=== PATIENT | female | born 1980 | race Two or more races ===

== ENCOUNTER 2018-09-19 13:31 | Emergency (ER) | payer MEDICAID, OTHER ==
[~2018-09-19] VITALS: Ht 144.8 cm; Wt 41.8 kg
[2018-09-19 16:55] VITALS: BP 159/90
== END 2018-09-19 17:16 | disposition home or self-care (01) ==
LOC: ER 13:31
DX: J20.9 Acute bronchitis, unspecified (principal)
CPT/HCPCS: 71046

== ENCOUNTER 2018-11-19 07:09 | Emergency (ER) | payer MEDICAID ==
[~2018-11-19] VITALS: Ht 144.8 cm; Wt 46.3 kg
[2018-11-19 07:45] LABS: Urine Bacteria FEW /hpf (None Seen); Urine Blood Negative /uL (Negative); Urine Specific Gravity 1.018 (1.001-1.035); Urine WBC 1 /hpf (0 - 5)
[2018-11-19 07:46] LABS: Basophils # (auto) 0 uL; Basophils % (auto) 0.4 % (0.0-2.0); Eosinophils # (auto) 0.1 uL; Eosinophils % (auto) 1.3 % (0.0-7.0); Hematocrit 32.8 % (36.0-46.0); Lymphocytes # (auto) 2.4 uL
[2018-11-19 07:47] LABS: Hemoglobin 10.4 g/dL (12.2-16.2); Mean Corpuscular Hemoglobin 26.2 pg (28.0-32.0); Mean Corpuscular Hgb Conc. 31.6 g/dL (32.0-36.0); Monocytes # (auto) 0.5 uL; Monocytes % (auto) 7.7 % (0.0-12.0); Neutrophils # (auto) 3.8 uL; Neutrophils % (auto) 55.6 % (37.0-80.0); Platelet Count (auto) 381 10^3/uL (140-450); Red Blood Cells 3.95 10^6/uL (4.0-5.20); Red Cell Distribution Width 17.2 % (11.8-14.3); White Blood Cell 6.9 10^3/uL (4.4-10.8)
[2018-11-19 08:09] LABS: Albumin 3.2 g/dL (3.4-5.0); BUN/Creatinine Ratio 16.7; Calcium 8.5 mg/dL (8.5-10.1); Potassium 3.6 mmol/L (3.5-5.1)
[2018-11-19 08:12] LABS: Bilirubin, Total 0.1 mg/dL (0.2-1.0); Total Protein 6.9 g/dL (6.4-8.2)
[2018-11-19 08:46] VITALS: BP 129/95
[2018-11-19] MEDS ORDERED: SODIUM CHLORIDE 0.9% 1,000 ML IV ONE ×2 (09:40→09:43)
[2018-11-19] MEDS ORDERED: SODIUM CHLORIDE 0.9% 500 ML IVB ONE ×2 (09:40→09:43)
[2018-11-19] MEDS ORDERED: PROMETHAZINE HCL 25 MG/ML 1ML IV PRN ×2 (09:45)
[2018-11-19] MEDS ORDERED: KETOROLAC TROMETH 30 MG/ML 1ML VIAL IV ONE ×2 (09:45)
== END 2018-11-19 11:49 | disposition home or self-care (01) ==
LOC: ER 07:09
DX: N20.1 Calculus of ureter (principal); E11.9 Type 2 diabetes mellitus without complications; E46 Unspecified protein-calorie malnutrition; Z68.22 Body mass index [BMI] 22.0-22.9, adult; Z90.49 Acquired absence of other specified parts of digestive tract
CPT/HCPCS: 36415; 74176; 80053; 81001; 81025; 83690; 83735; 85025; 96374; 99284; J1885; J7030; J7040

== ENCOUNTER 2019-06-24 06:38 | Emergency (ER) | payer MEDICAID ==
[~2019-06-24] VITALS: Ht 144.8 cm; Wt 51.7 kg
[2019-06-24 07:35] LABS: Urine Bacteria NONE SEEN /hpf (None Seen); Urine Blood Negative /uL (Negative); Urine Mucus FEW (None Seen); Urine Specific Gravity 1.017 (1.001-1.035); Urine WBC 1 /hpf (0 - 5)
[2019-06-24 08:05] LABS: Basophils # (auto) 0 uL; Basophils % (auto) 0.4 % (0.0-2.0); Eosinophils # (auto) 0.2 uL; Eosinophils % (auto) 2.1 % (0.0-7.0); Hematocrit 33.4 % (36.0-46.0); Hemoglobin 10.8 g/dL (12.2-16.2); Lymphocytes # (auto) 1.7 uL; Lymphocytes % (auto) 23.3 % (10.0-50.0); Mean Corpuscular Hemoglobin 27.3 pg (28.0-32.0); Mean Corpuscular Hgb Conc. 32.3 g/dL (32.0-36.0); Mean Corpuscular Volume 84.5 fL (80.0-100.0); Monocytes # (auto) 0.5 uL; Monocytes % (auto) 6.4 % (0.0-12.0); Neutrophils % (auto) 67.8 % (37.0-80.0); Platelet Count (auto) 421 10^3/uL (140-450); Red Blood Cells 3.95 10^6/uL (4.0-5.20); Red Cell Distribution Width 16.9 % (11.8-14.3); White Blood Cell 7.3 10^3/uL (4.4-10.8)
[2019-06-24] MEDS ORDERED: SODIUM CHLORIDE 0.9% 500 ML IVB ONE (08:07)
[2019-06-24] MEDS ORDERED: SODIUM CHLORIDE 0.9% 1,000 ML IV ONE (08:07)
[2019-06-24 08:13] LABS: Potassium 4.2 mmol/L (3.5-5.1)
[2019-06-24] MEDS ORDERED: KETOROLAC TROMETH 30 MG/ML 1ML VIAL IV ONE (08:15)
[2019-06-24] MEDS ORDERED: PROMETHAZINE HCL 25 MG/ML 1ML IV PRN (08:15)
[2019-06-24 08:17] LABS: Albumin 3.2 g/dL (3.4-5.0); BUN/Creatinine Ratio 21.3; Calcium 8.5 mg/dL (8.5-10.1)
[2019-06-24 08:20] LABS: Bilirubin, Total 0.3 mg/dL (0.2-1.0); Total Protein 6.9 g/dL (6.4-8.2)
[2019-06-24 12:00] VITALS: BP 139/67
== END 2019-06-24 12:31 | disposition home or self-care (01) ==
LOC: ER 06:38
DX: K59.01 Slow transit constipation (principal); K81.9 Cholecystitis, unspecified; E44.1 Mild protein-calorie malnutrition; E11.9 Type 2 diabetes mellitus without complications; Z68.24 Body mass index [BMI] 24.0-24.9, adult; Z87.442 Personal history of urinary calculi; Z32.02 Encounter for pregnancy test, result negative; Z90.49 Acquired absence of other specified parts of digestive tract; Z91.041 Radiographic dye allergy status
CPT/HCPCS: 36415; 71046; 74176; 80053; 81001; 81025; 82150; 83690; 83735; 84702; 85025; 93005; 96361; 96374; 96375; 99284; J1885; J2550; J7030

== ENCOUNTER 2019-06-29 00:28 | Emergency (ER) | payer MEDICAID ==
[~2019-06-29] VITALS: Ht 144.8 cm; Wt 51.7 kg
[2019-06-29 01:58] LABS: Basophils # (auto) 0 uL; Basophils % (auto) 0.2 % (0.0-2.0); Eosinophils # (auto) 0.1 uL
[2019-06-29 01:59] LABS: Eosinophils % (auto) 0.9 % (0.0-7.0); Hemoglobin 11.1 g/dL (12.2-16.2); Lymphocytes # (auto) 1.9 uL; Lymphocytes % (auto) 13.4 % (10.0-50.0); Mean Corpuscular Hemoglobin 26.7 pg (28.0-32.0); Mean Corpuscular Hgb Conc. 31.7 g/dL (32.0-36.0); Monocytes # (auto) 1.4 uL; Monocytes % (auto) 10.1 % (0.0-12.0); Neutrophils # (auto) 10.8 uL; Neutrophils % (auto) 75.4 % (37.0-80.0); Platelet Count (auto) 451 10^3/uL (140-450); Red Blood Cells 4.17 10^6/uL (4.0-5.20); Red Cell Distribution Width 17.1 % (11.8-14.3); White Blood Cell 14.3 10^3/uL (4.4-10.8)
[2019-06-29 02:12] LABS: Urine Bacteria FEW /hpf (None Seen); Urine Blood Negative /uL (Negative); Urine WBC 1 /hpf (0 - 5)
[2019-06-29 02:14] LABS: Albumin 3.5 g/dL (3.4-5.0); Anion Gap 10 (5-15); Blood Urea Nitrogen 21 mg/dL (7-18); Calcium 9.3 mg/dL (8.5-10.1); Carbon Dioxide 20 mmol/L (21-32); Chloride 110 mmol/L (98-107); Glucose 128 mg/dL (74-106); Potassium 3.9 mmol/L (3.5-5.1); Sodium 140 mmol/L (136-145)
[2019-06-29 02:17] LABS: BUN/Creatinine Ratio 25.9; GFR African American 102 mL/min; GFR Non-African American 85 mL/min
[2019-06-29 02:22] LABS: Alanine Aminotransferase 26 U/L (13-56); Alkaline Phosphatase 77 U/L (45-117); Aspartate Aminotransferase 21 U/L (15-37); Bilirubin, Total 0.2 mg/dL (0.2-1.0); Total Protein 7.9 g/dL (6.4-8.2)
[2019-06-29] MEDS ORDERED: cefTRIAXone W LIDOCAINE 1 GM IM IM ONE (06:00)
[2019-06-29] MEDS ORDERED: cefTRIAXone SOD 1,000 MG VL ONE (06:12)
[2019-06-29] MEDS ORDERED: LIDOCAINE 2% (LOCAL ANESTH.) PF 5ml SDV ONE (06:12)
[2019-06-29 06:16] VITALS: BP 141/99
== END 2019-06-29 06:27 | disposition home or self-care (01) ==
LOC: ER 00:30
DX: R07.89 Other chest pain (principal); J40 Bronchitis, not specified as acute or chronic; E11.9 Type 2 diabetes mellitus without complications; Z90.49 Acquired absence of other specified parts of digestive tract; Z90.89 Acquired absence of other organs; Z91.041 Radiographic dye allergy status
CPT/HCPCS: 36415; 71045; 80053; 81001; 84484; 85025; 93005; 96372; 99284; J0696; J2001

== ENCOUNTER 2020-12-15 06:02 | Emergency (ER) | payer MEDICAID ==
[~2020-12-15] VITALS: Ht 144.8 cm; Wt 50.8 kg
[2020-12-15 06:04] VITALS: BP 159/95
== END 2020-12-15 07:08 | disposition left against medical advice (07) ==
LOC: ER 06:02
DX: J02.9 Acute pharyngitis, unspecified (principal); Z53.21 Procedure and treatment not carried out due to patient leaving prior to being seen by health care provider

== ENCOUNTER 2021-06-16 00:51 | Emergency (ER) | payer MEDICAID ==
[~2021-06-16] VITALS: Ht 144.8 cm; Wt 53.1 kg
[2021-06-16 03:14] VITALS: BP 148/87
== END 2021-06-16 02:56 | disposition home or self-care (01) ==
LOC: ER 00:51
DX: U07.1 COVID-19 (principal); R53.83 Other fatigue; J45.909 Unspecified asthma, uncomplicated; Z90.49 Acquired absence of other specified parts of digestive tract
CPT/HCPCS: 36415; 71045; 87426; 99284; J7030

== ENCOUNTER 2021-07-24 19:58 | Emergency (ER) | payer MEDICAID ==
[~2021-07-24] VITALS: Ht 144.8 cm; Wt 54.4 kg
[2021-07-24] MEDS ORDERED: KETOROLAC TROMETH 60MG/2ML VIAL IM ONE (20:15)
[2021-07-24] MEDS ORDERED: methylPREDNISolone SOD SUCC 125 MG/2 ML VL IM ONE (20:15)
[2021-07-24 20:49] VITALS: BP 121/79
[2021-07-25] MEDS ORDERED: HYDROcodone-ACET 10/325MG TAB PO ONE (01:45)
[2021-07-25] MEDS ORDERED: cefTRIAXone SOD 1,000 MG VL IM ONE (05:15)
[2021-07-25] MEDS ORDERED: AZITTAB PO (05:17)
[2021-07-25] MEDS ORDERED: PRED20TA2 PO (05:17)
== END 2021-07-25 05:43 | disposition home or self-care (01) ==
LOC: ER 19:58
DX: J03.90 Acute tonsillitis, unspecified (principal); J45.909 Unspecified asthma, uncomplicated; Z90.49 Acquired absence of other specified parts of digestive tract; Z79.2 Long term (current) use of antibiotics; Z79.899 Other long term (current) drug therapy; Z88.8 Allergy status to other drugs, medicaments and biological substances; Z20.822 Contact with and (suspected) exposure to COVID-19
CPT/HCPCS: 36415; 86308; 87070; 87426; 87880; 96372; 99284; J1885; J2930; J0696

== ENCOUNTER 2021-10-27 04:31 | Emergency (ER) | payer MEDICAID ==
[~2021-10-27] VITALS: Ht 144.8 cm; Wt 52.2 kg
[~2021-10-27 04:31] MED LIST: AZITTAB PO; HYDR-4902 PO; NITR-87 PO; PRED20TA2 PO
[2021-10-27 06:21] LABS: Urine Bacteria NONE SEEN /hpf (None Seen); Urine Blood Negative /uL (Negative); Urine Mucus FEW (None Seen); Urine Specific Gravity 1.022 (1.001-1.035); Urine WBC 6 /hpf (0 - 5)
[2021-10-27] MEDS ORDERED: KETOROLAC TROMETH 30 MG/ML 1ML VIAL IV ONE ×2 (08:15→09:45)
[2021-10-27] MEDS ORDERED: IOHEXOL 300 MG/ML 100ML BOTTLE IJ ONE (08:30)
[2021-10-27 08:31] LABS: Basophils # (auto) 0 10 ^3/uL (0-0.2); Basophils % (auto) 0.4 % (0.0-2.0); Eosinophils # (auto) 0.3 10 ^3/uL (0-0.8); Eosinophils % (auto) 4.3 % (0.0-7.0); Hematocrit 33.7 % (36.0-46.0); Hemoglobin 11.6 g/dL (12.2-16.2); Mean Corpuscular Hemoglobin 32.4 pg (28.0-32.0); Mean Corpuscular Hgb Conc. 34.4 g/dL (32.0-36.0); Mean Corpuscular Volume 94.3 fL (80.0-100.0); Monocytes # (auto) 0.5 10 ^3/uL (0-1.3); Monocytes % (auto) 7.7 % (0.0-12.0); Neutrophils # (auto) 3.5 10 ^3/uL (1.6-8.6); Neutrophils % (auto) 55.6 % (37.0-80.0); Nucleated Red Blood Cells % 0.1 %; Red Blood Cells 3.57 10^6/uL (4.0-5.20); Red Cell Distribution Width 13.5 % (11.8-14.3); White Blood Cell 6.3 10^3/uL (4.4-10.8)
[2021-10-27] MEDS ORDERED: KETOROLAC TROMETH 60MG/2ML VIAL IM ONE (08:45)
[2021-10-27 09:18] LABS: Albumin 3.3 g/dL (3.4-5.0); BUN/Creatinine Ratio 14.3; Blood Urea Nitrogen 13 mg/dL (7-18); Calcium 8.1 mg/dL (8.5-10.1); Carbon Dioxide 26 mmol/L (21-32); GFR African American 88 mL/min; GFR Non-African American 73 mL/min; Glucose 104 mg/dL (74-106); Lipase 199 U/L (73-393)
[2021-10-27 09:21] LABS: Alkaline Phosphatase 70 U/L (45-117); Anion Gap 6 (5-15); Bilirubin, Total < 0.1 mg/dL (0.2-1.0); Chloride 111 mmol/L (98-107); Potassium 3.9 mmol/L (3.5-5.1); Sodium 143 mmol/L (136-145); Total Protein 6.6 g/dL (6.4-8.2)
[2021-10-27 09:30] LABS: Alanine Aminotransferase 16 U/L (13-56); Aspartate Aminotransferase 14 U/L (15-37)
[2021-10-27 11:00] VITALS: BP 136/88
== END 2021-10-27 11:48 | disposition home or self-care (01) ==
LOC: ER 04:31
DX: R10.2 Pelvic and perineal pain (principal); J45.909 Unspecified asthma, uncomplicated; Z90.49 Acquired absence of other specified parts of digestive tract; Z79.2 Long term (current) use of antibiotics; Z79.899 Other long term (current) drug therapy; Z88.8 Allergy status to other drugs, medicaments and biological substances
CPT/HCPCS: 36415; 74176; 76830; 76856; 80053; 81001; 81025; 83690; 84702; 85025; 87491; 87591; 96374; 99284; J1885

== ENCOUNTER 2022-01-23 04:06 | Emergency (ER) | payer MEDICAID ==
[~2022-01-23] VITALS: Ht 144.8 cm; Wt 111.0 kg
[2022-01-23 05:21] LABS: Urine Bacteria MANY /hpf (None Seen); Urine Blood Negative /uL (Negative); Urine Mucus FEW (None Seen); Urine Specific Gravity 1.022 (1.001-1.035); Urine WBC 5 /hpf (0 - 5)
[2022-01-23] MEDS ORDERED: KETOROLAC TROMETH 30 MG/ML 1ML VIAL IV ONE (07:30)
[2022-01-23] MEDS ORDERED: cefTRIAXone 1GM/50ML D5W 50 ML IV ONE (07:30)
[2022-01-23 08:54] LABS: Basophils # (auto) 0 10 ^3/uL (0-0.2); Basophils % (auto) 0.4 % (0.0-2.0); Eosinophils # (auto) 0.2 10 ^3/uL (0-0.8); Hematocrit 32.4 % (36.0-46.0); Hemoglobin 10.8 g/dL (12.2-16.2); Lymphocytes # (auto) 1.8 10 ^3/uL (0.4-5.4); Lymphocytes % (auto) 20.1 % (10.0-50.0); Mean Corpuscular Hemoglobin 32.9 pg (28.0-32.0); Mean Corpuscular Hgb Conc. 33.5 g/dL (32.0-36.0); Mean Corpuscular Volume 98.5 fL (80.0-100.0); Monocytes # (auto) 0.7 10 ^3/uL (0-1.3); Monocytes % (auto) 8.1 % (0.0-12.0); Neutrophils # (auto) 6.2 10 ^3/uL (1.6-8.6); Neutrophils % (auto) 69.4 % (37.0-80.0); Nucleated Red Blood Cells % 0.1 %; Red Blood Cells 3.29 10^6/uL (4.0-5.20); Red Cell Distribution Width 13.1 % (11.8-14.3)
[2022-01-23 08:59] LABS: Albumin 3.4 g/dL (3.4-5.0); Calcium 8.4 mg/dL (8.5-10.1); Potassium 4.1 mmol/L (3.5-5.1)
[2022-01-23 09:03] LABS: BUN/Creatinine Ratio 23.9; Bilirubin, Total 0.2 mg/dL (0.2-1.0); Total Protein 6.7 g/dL (6.4-8.2)
[2022-01-23] MEDS ORDERED: CIPR-173 PO (11:01)
[2022-01-23] MEDS ORDERED: NAP500T PO (11:01)
[2022-01-23] MEDS ORDERED: METO-281 PO (11:01)
[2022-01-23 11:24] VITALS: BP 124/66
== END 2022-01-23 11:28 | disposition home or self-care (01) ==
LOC: ER 04:06
DX: N39.0 Urinary tract infection, site not specified (principal); M77.8 Other enthesopathies, not elsewhere classified
CPT/HCPCS: 36415; 76705; 80053; 81001; 83690; 84702; 85025; 96365; 96366; 96375; 99284; J0696; J1885

== ENCOUNTER 2022-02-04 11:36 | Emergency (ER) | payer MEDICAID ==
[~2022-02-04] VITALS: Ht 144.8 cm; Wt 50.0 kg
[~2022-02-04 11:36] MED LIST changes: +ACE3T PO; +CIPR-173 PO; +METO-281 PO; +NAP500T PO
[2022-02-04] MEDS ORDERED: KETOROLAC TROMETH 60MG/2ML VIAL IM ONE (13:45)
[2022-02-04 14:08] VITALS: BP 113/79
[2022-02-04 14:39] LABS: Urine Bacteria NONE SEEN /hpf (None Seen); Urine Blood 1+ /uL (Negative); Urine Specific Gravity 1.012 (1.001-1.035); Urine WBC <1 /hpf (0 - 5)
[2022-02-04] MEDS ORDERED: HYDR50CA PO ×2 (15:07→15:08)
== END 2022-02-04 15:14 | disposition home or self-care (01) ==
LOC: ER 11:36
DX: T78.40XA Allergy, unspecified, initial encounter (principal); N64.4 Mastodynia; J45.909 Unspecified asthma, uncomplicated; Z86.73 Personal history of transient ischemic attack (TIA), and cerebral infarction without residual deficits; Z90.49 Acquired absence of other specified parts of digestive tract; Z79.2 Long term (current) use of antibiotics; Z79.899 Other long term (current) drug therapy; Z88.8 Allergy status to other drugs, medicaments and biological substances; Y92.89 Other specified places as the place of occurrence of the external cause
CPT/HCPCS: 76642; 81001; 81025; 93005; 96372; 99285; J1885

== ENCOUNTER 2022-02-23 10:58 | Emergency (ER) | payer MEDICAID ==
[~2022-02-23] VITALS: Ht 132.1 cm; Wt 55.9 kg
[~2022-02-23 10:58] MED LIST changes: +HYDR50CA PO
[2022-02-23 11:57] LABS: Basophils # (auto) 0 10 ^3/uL (0-0.2); Basophils % (auto) 0.5 % (0.0-2.0); Eosinophils # (auto) 0.2 10 ^3/uL (0-0.8); Eosinophils % (auto) 2.6 % (0.0-7.0); Hematocrit 35.1 % (36.0-46.0); Hemoglobin 11.4 g/dL (12.2-16.2); Lymphocytes # (auto) 1.8 10 ^3/uL (0.4-5.4); Lymphocytes % (auto) 23.5 % (10.0-50.0); Mean Corpuscular Hemoglobin 31.2 pg (28.0-32.0); Mean Corpuscular Hgb Conc. 32.6 g/dL (32.0-36.0); Mean Corpuscular Volume 95.8 fL (80.0-100.0); Monocytes # (auto) 0.6 10 ^3/uL (0-1.3); Monocytes % (auto) 8.4 % (0.0-12.0); Red Blood Cells 3.67 10^6/uL (4.0-5.20); Red Cell Distribution Width 11.9 % (11.8-14.3); White Blood Cell 7.7 10^3/uL (4.4-10.8)
[2022-02-23 12:14] LABS: Potassium 4.2 mmol/L (3.5-5.1)
[2022-02-23 12:21] LABS: Albumin 3.2 g/dL (3.4-5.0); BUN/Creatinine Ratio 32.8; Bilirubin, Total 0.3 mg/dL (0.2-1.0); Calcium 8.8 mg/dL (8.5-10.1)
[2022-02-23 12:37] LABS: Urine Bacteria FEW /hpf (None Seen); Urine Blood 1+ /uL (Negative); Urine Specific Gravity 1.021 (1.001-1.035); Urine WBC 6 /hpf (0 - 5)
[2022-02-23] MEDS ORDERED: CEPH-322 PO (13:33)
[2022-02-23 13:49] VITALS: BP 121/76
== END 2022-02-23 14:01 | disposition home or self-care (01) ==
LOC: ER 10:58
DX: N12 Tubulo-interstitial nephritis, not specified as acute or chronic (principal); J45.909 Unspecified asthma, uncomplicated; Z86.73 Personal history of transient ischemic attack (TIA), and cerebral infarction without residual deficits; Z90.49 Acquired absence of other specified parts of digestive tract; Z79.2 Long term (current) use of antibiotics; Z79.899 Other long term (current) drug therapy; Z88.8 Allergy status to other drugs, medicaments and biological substances
CPT/HCPCS: 36415; 80053; 81001; 81025; 85025

== ENCOUNTER 2022-03-22 05:40 | Inpatient (IN) | payer MEDICAID ==
[~2022-03-22] VITALS: Ht 165.1 cm; Wt 61.0 kg
[~2022-03-22 05:40] MED LIST changes: +CEPH-322 PO
[2022-03-22] MEDS ORDERED: ONDANSETRON HCL 4 MG/2 ML VIAL IV ONE ×2 (06:00→13:30)
[2022-03-22] MEDS ORDERED: NALOXONE HCL 0.4 MG/ML VIAL IV ONE (06:00)
[2022-03-22 06:35] LABS: Basophils # (auto) 0 10 ^3/uL (0-0.2); Basophils % (auto) 0.3 % (0.0-2.0); Eosinophils # (auto) 0.1 10 ^3/uL (0-0.8); Eosinophils % (auto) 0.6 % (0.0-7.0); Hematocrit 34.4 % (36.0-46.0); Hemoglobin 11.3 g/dL (12.2-16.2); Lymphocytes # (auto) 1.3 10 ^3/uL (0.4-5.4); Lymphocytes % (auto) 9.4 % (10.0-50.0); Mean Corpuscular Hemoglobin 30.7 pg (28.0-32.0); Mean Corpuscular Hgb Conc. 32.7 g/dL (32.0-36.0); Mean Corpuscular Volume 93.7 fL (80.0-100.0); Monocytes # (auto) 0.9 10 ^3/uL (0-1.3); Monocytes % (auto) 6.3 % (0.0-12.0); Neutrophils % (auto) 83.4 % (37.0-80.0); Red Blood Cells 3.67 10^6/uL (4.0-5.20); Red Cell Distribution Width 12.2 % (11.8-14.3); White Blood Cell 14.4 10^3/uL (4.4-10.8)
[2022-03-22 06:54] LABS: Albumin 3.4 g/dL (3.4-5.0); Anion Gap 9 (5-15); Blood Alcohol < 3.0 mg/dL (0-5); Blood Urea Nitrogen 19 mg/dL (7-18); Calcium 7.7 mg/dL (8.5-10.1); Carbon Dioxide 25 mmol/L (21-32); Chloride 102 mmol/L (98-107); Glucose 196 mg/dL (74-106); Magnesium 1.8 mg/dL (1.6-2.6); Sodium 136 mmol/L (136-145)
[2022-03-22 06:57] LABS: Alanine Aminotransferase 28 U/L (13-56); Alkaline Phosphatase 71 U/L (45-117); Aspartate Aminotransferase 15 U/L (15-37); BUN/Creatinine Ratio 26.4; Bilirubin, Total 0.3 mg/dL (0.2-1.0); GFR African American 115 mL/min; GFR Non-African American 95 mL/min; Total Protein 6.6 g/dL (6.4-8.2)
[2022-03-22 06:59] LABS: Salicylate < 1.7 mg/dL (2.8-20.0)
[2022-03-22 07:11] LABS: Acetaminophen < 2.0 ug/mL (10-30)
[2022-03-22] MEDS ORDERED: SODIUM CHLORIDE 0.9% 1,000 ML IV ONE ×2 (07:15)
[2022-03-22 11:23] LABS: Urine Bacteria MANY /hpf (None Seen); Urine Blood Negative /uL (Negative); Urine Mucus FEW (None Seen); Urine Specific Gravity 1.027 (1.001-1.035); Urine WBC 1 /hpf (0 - 5)
[2022-03-22 11:53] LABS: Amphetamine Screen, Urine NEGATIVE (NEGATIVE); Barbiturate Scree,Urine NEGATIVE (NEGATIVE); Benzodiazephine Screen, Urine NEGATIVE (NEGATIVE); Cannabinoid Screen, Urine NEGATIVE (NEGATIVE); Cocaine Screen, Urine NEGATIVE (NEGATIVE); Opiate Scree,Urine NEGATIVE (NEGATIVE); Phencyclidine Screen, Urine NEGATIVE (NEGATIVE)
[2022-03-22] MEDS ORDERED: ACETAMINOPHEN 325 MG TAB PO ONE (13:30)
[2022-03-22] MEDS: SODIUM CHLORIDE 0.9% 1,000 ML IV SCH (16:45)
[2022-03-22] MEDS ORDERED: cefTRIAXone 1GM/50ML D5W 50 ML IV ONE (16:45)
[2022-03-22] MEDS ORDERED: NITROGLYCERIN 0.4 MG SL TAB SL PRN (16:45)
[2022-03-22 19:31] LABS: Cholesterol 159 mg/dL (< 200); HDL Cholesterol 53 mg/dL (40-59); LDL Cholesterol 93 mg/dL (< 100); Triglycerides 207 mg/dL (< 150)
[2022-03-23] MEDS: HYDROcodone-ACET 5/325MG TAB PO PRN ×3 (01:29→17:30)
[2022-03-23] MEDS: SODIUM CHLORIDE 0.9% 1,000 ML IV SCH ×4 (02:57→20:13)
[2022-03-23 05:05] LABS: Basophils # (auto) 0 10 ^3/uL (0-0.2); Basophils % (auto) 0.3 % (0.0-2.0); Eosinophils # (auto) 0.3 10 ^3/uL (0-0.8); Eosinophils % (auto) 3.2 % (0.0-7.0); Hematocrit 31.1 % (36.0-46.0); Hemoglobin 10.4 g/dL (12.2-16.2); Lymphocytes # (auto) 2.5 10 ^3/uL (0.4-5.4); Lymphocytes % (auto) 23.3 % (10.0-50.0); Mean Corpuscular Hemoglobin 31.6 pg (28.0-32.0); Mean Corpuscular Hgb Conc. 33.5 g/dL (32.0-36.0); Mean Corpuscular Volume 94.4 fL (80.0-100.0); Monocytes # (auto) 0.8 10 ^3/uL (0-1.3); Monocytes % (auto) 7.6 % (0.0-12.0); Neutrophils # (auto) 6.9 10 ^3/uL (1.6-8.6); Neutrophils % (auto) 65.6 % (37.0-80.0); Red Blood Cells 3.29 10^6/uL (4.0-5.20); Red Cell Distribution Width 12.1 % (11.8-14.3); White Blood Cell 10.6 10^3/uL (4.4-10.8)
[2022-03-23 05:29] LABS: Potassium 4.3 mmol/L (3.5-5.1)
[2022-03-23 05:37] LABS: BUN/Creatinine Ratio 18.3; Bilirubin, Total 0.3 mg/dL (0.2-1.0); Calcium 7.9 mg/dL (8.5-10.1); Total Protein 5.8 g/dL (6.4-8.2)
[2022-03-23 06:00] VITALS: BP 120/80
[2022-03-23 08:00] VITALS: BP 129/73
[2022-03-23] MEDS: ENOXAPARIN SOD 40 MG/0.4 ML SYRINGE SC SCH (09:16)
[2022-03-23] MEDS: cefTRIAXone 1GM/50ML D5W 50 ML IV SCH (09:16)
[2022-03-23 12:00] VITALS: BP 115/69
[2022-03-23 16:00] VITALS: BP 133/76
[2022-03-23] MEDS ORDERED: LORazepam 2MG/ML-1ML VIAL IV PRN (23:15)
[2022-03-24] MEDS: HYDROcodone-ACET 5/325MG TAB PO PRN ×3 (02:24→21:23)
[2022-03-24 05:00] VITALS: BP 120/58
[2022-03-24] MEDS: cefTRIAXone 1GM/50ML D5W 50 ML IV SCH (08:28)
[2022-03-24] MEDS: SODIUM CHLORIDE 0.9% 1,000 ML IV SCH ×3 (08:28→21:24)
[2022-03-24 09:00] VITALS: BP 123/81
[2022-03-24] MEDS: ENOXAPARIN SOD 40 MG/0.4 ML SYRINGE SC SCH (11:13)
[2022-03-24 13:00] VITALS: BP 140/87
[2022-03-24 16:50] VITALS: BP 135/54
[2022-03-24 22:00] VITALS: BP 140/87
[2022-03-24] MEDS ORDERED: ONDANSETRON HCL 4 MG/2 ML VIAL IV PRN (23:00)
[2022-03-25] MEDS: SODIUM CHLORIDE 0.9% 1,000 ML IV SCH (04:52)
[2022-03-25 05:00] VITALS: BP 129/94
[2022-03-25] MEDS: HYDROcodone-ACET 5/325MG TAB PO PRN (05:01)
[2022-03-25 08:15] VITALS: BP 123/80
[2022-03-25 08:36] VITALS: BP 123/80
[2022-03-25] MEDS: ENOXAPARIN SOD 40 MG/0.4 ML SYRINGE SC SCH (09:02)
[2022-03-25] MEDS: cefTRIAXone 1GM/50ML D5W 50 ML IV SCH (09:02)
[2022-03-25] MEDS ORDERED: CIPR-173 PO (11:42)
[2022-03-25 11:55] VITALS: BP 136/92
[2022-03-25 12:36] VITALS: BP 136/92
== END 2022-03-25 12:28 | disposition home or self-care (01) | DRG 812 ==
LOC: EDBD 05:40 → ER 05:40 → TELE 06:35 → TELE-WESTW 03-23 05:39
PROVIDERS: ADMIT Registered Nurse; ATTEND Family Medicine
DX: T40.691A Poisoning by other narcotics, accidental (unintentional), initial encounter (principal); G93.41 Metabolic encephalopathy; E86.0 Dehydration; N39.0 Urinary tract infection, site not specified; J45.909 Unspecified asthma, uncomplicated; F41.9 Anxiety disorder, unspecified; N20.0 Calculus of kidney; F10.10 Alcohol abuse, uncomplicated; F32.A Depression, unspecified; F17.200 Nicotine dependence, unspecified, uncomplicated; Z20.822 Contact with and (suspected) exposure to COVID-19; Z87.442 Personal history of urinary calculi; Z86.73 Personal history of transient ischemic attack (TIA), and cerebral infarction without residual deficits; Z83.3 Family history of diabetes mellitus; Z82.49 Family history of ischemic heart disease and other diseases of the circulatory system; Y92.89 Other specified places as the place of occurrence of the external cause; G45.9 Transient cerebral ischemic attack, unspecified
CPT/HCPCS: 36415; 70450; 70551; 80053; 80061; 80307; 80320; 80329; 81001; 82140; 82962; 83605; 83735; 85025; 87040; 87086; 87088; 87186; 93005; 93306; 93886; 95819; 96361; 96374; 96375; G0378; J0696; J2405

== ENCOUNTER 2022-04-10 00:37 | Emergency (ER) | payer MEDICAID | END 2022-04-10 02:34 | disposition left against medical advice (07) | LOC: ER 00:41 | DX: R10.9 Unspecified abdominal pain (principal); Z53.21 Procedure and treatment not carried out due to patient leaving prior to being seen by health care provider ==

== ENCOUNTER 2022-04-15 08:08 | Emergency (ER) | payer MEDICAID ==
[~2022-04-15] VITALS: Ht 144.8 cm; Wt 57.1 kg
[2022-04-15 08:52] LABS: Urine Bacteria NONE SEEN /hpf (None Seen); Urine Blood Negative /uL (Negative); Urine Hyaline Cast FEW /lpf (0 - 2); Urine Mucus FEW (None Seen); Urine Specific Gravity 1.021 (1.001-1.035); Urine WBC 1 /hpf (0 - 5)
[2022-04-15] MEDS ORDERED: KETOROLAC TROMETH 60MG/2ML VIAL IM ONE (09:15)
[2022-04-15] MEDS ORDERED: IBUP800T27 PO (11:05)
[2022-04-15 11:14] VITALS: BP 132/86
== END 2022-04-15 11:15 | disposition home or self-care (01) ==
LOC: ER 08:08
DX: N83.202 Unspecified ovarian cyst, left side (principal); J45.909 Unspecified asthma, uncomplicated; Z98.51 Tubal ligation status; Z90.49 Acquired absence of other specified parts of digestive tract; Z86.73 Personal history of transient ischemic attack (TIA), and cerebral infarction without residual deficits; Z32.02 Encounter for pregnancy test, result negative; Z87.442 Personal history of urinary calculi
CPT/HCPCS: 74176; 81001; 81025; 82962; 96372; 99284; J1885; J7030

== ENCOUNTER 2022-05-06 15:46 | Emergency (ER) | payer MEDICAID ==
[~2022-05-06] VITALS: Ht 144.8 cm; Wt 55.0 kg
[~2022-05-06 15:46] MED LIST changes: +IBUP800T27 PO
[2022-05-06 17:56] VITALS: BP 96/65
[2022-05-06] MEDS ORDERED: KETOROLAC TROMETH 60MG/2ML VIAL IM ONE (18:15)
[2022-05-06 18:21] LABS: Urine Bacteria NONE SEEN /hpf (None Seen); Urine Mucus FEW (None Seen); Urine WBC 9 /hpf (0 - 5)
[2022-05-06 18:23] LABS: Urine Blood 2+ /uL (Negative); Urine Specific Gravity 1.015 (1.001-1.035)
[2022-05-06] MEDS ORDERED: cefTRIAXone SOD 1,000 MG VL IM ONE (18:30)
[2022-05-06] MEDS ORDERED: ACET-1080 PO (18:36)
[2022-05-06] MEDS ORDERED: CEPH-510 PO (18:36)
== END 2022-05-06 18:49 | disposition home or self-care (01) ==
LOC: ER 15:46
DX: J03.90 Acute tonsillitis, unspecified (principal); N30.00 Acute cystitis without hematuria; J45.909 Unspecified asthma, uncomplicated; Z90.49 Acquired absence of other specified parts of digestive tract; Z79.2 Long term (current) use of antibiotics; Z79.1 Long term (current) use of non-steroidal anti-inflammatories (NSAID); Z79.899 Other long term (current) drug therapy; Z88.8 Allergy status to other drugs, medicaments and biological substances
CPT/HCPCS: 81001; 81025; 96372; 99284; J0696; J1885

== ENCOUNTER 2022-05-21 06:31 | Emergency (ER) | payer MEDICAID ==
[~2022-05-21] VITALS: Ht 144.8 cm; Wt 58.6 kg
[~2022-05-21 06:31] MED LIST changes: +ACET-1080 PO; +CEPH-510 PO
[2022-05-21 07:56] VITALS: BP 132/53
[2022-05-21] MEDS ORDERED: cefTRIAXone SOD 1,000 MG VL IM ONE (08:00)
[2022-05-21] MEDS ORDERED: AZIT250T8 PO (08:29)
[2022-05-21] MEDS ORDERED: PROM1SOL4 PO (08:30)
== END 2022-05-21 08:32 | disposition home or self-care (01) ==
LOC: ER 06:31
DX: J03.90 Acute tonsillitis, unspecified (principal); J06.9 Acute upper respiratory infection, unspecified; J45.909 Unspecified asthma, uncomplicated; Z90.49 Acquired absence of other specified parts of digestive tract; Z79.2 Long term (current) use of antibiotics; Z79.899 Other long term (current) drug therapy; Z79.1 Long term (current) use of non-steroidal anti-inflammatories (NSAID); Z88.8 Allergy status to other drugs, medicaments and biological substances
CPT/HCPCS: 71045; 96372; 99283; J0696

== ENCOUNTER 2022-06-07 06:19 | Emergency (ER) | payer MEDICAID ==
[~2022-06-07 06:19] MED LIST changes: +AZIT250T8 PO; +PROM1SOL4 PO
[2022-06-07 07:42] LABS: Basophils # (auto) 0 10 ^3/uL (0-0.2); Basophils % (auto) 0.5 % (0.0-2.0); Eosinophils # (auto) 0.4 10 ^3/uL (0-0.8); Eosinophils % (auto) 4.7 % (0.0-7.0); Hematocrit 34.8 % (36.0-46.0); Hemoglobin 11.4 g/dL (12.2-16.2); Lymphocytes # (auto) 2.6 10 ^3/uL (0.4-5.4); Mean Corpuscular Hemoglobin 29.9 pg (28.0-32.0); Mean Corpuscular Hgb Conc. 32.7 g/dL (32.0-36.0); Mean Corpuscular Volume 91.2 fL (80.0-100.0); Monocytes # (auto) 0.9 10 ^3/uL (0-1.3); Neutrophils % (auto) 50.8 % (37.0-80.0); Red Blood Cells 3.81 10^6/uL (4.0-5.20); Red Cell Distribution Width 13.1 % (11.8-14.3); White Blood Cell 7.8 10^3/uL (4.4-10.8)
[2022-06-07 08:01] LABS: Calcium 8.8 mg/dL (8.5-10.1); Potassium 4.4 mmol/L (3.5-5.1)
[2022-06-07 08:07] LABS: Albumin 3.1 g/dL (3.4-5.0); BUN/Creatinine Ratio 19.6; Bilirubin, Total 0.2 mg/dL (0.2-1.0); Total Protein 6.2 g/dL (6.4-8.2)
[2022-06-07 10:56] VITALS: BP 147/104
== END 2022-06-07 10:58 | disposition home or self-care (01) ==
LOC: ER 06:19
DX: S76.911A Strain of unspecified muscles, fascia and tendons at thigh level, right thigh, initial encounter (principal); S96.911A Strain of unspecified muscle and tendon at ankle and foot level, right foot, initial encounter; E11.65 Type 2 diabetes mellitus with hyperglycemia; F41.9 Anxiety disorder, unspecified; J45.909 Unspecified asthma, uncomplicated; Z87.442 Personal history of urinary calculi; Z90.49 Acquired absence of other specified parts of digestive tract; Z98.51 Tubal ligation status; Z98.890 Other specified postprocedural states; Z88.8 Allergy status to other drugs, medicaments and biological substances; Z79.899 Other long term (current) drug therapy; X58.XXXA Exposure to other specified factors, initial encounter; Y93.89 Activity, other specified; Y92.89 Other specified places as the place of occurrence of the external cause; Y99.8 Other external cause status
CPT/HCPCS: 36415; 71045; 80053; 85025; 93971

== ENCOUNTER 2022-07-27 10:21 | Emergency (ER) | payer MEDICAID ==
[~2022-07-27] VITALS: Ht 144.8 cm; Wt 57.6 kg
[2022-07-27 10:50] VITALS: BP 112/77
[2022-07-27 11:19] LABS: Basophils # (auto) 0 10 ^3/uL (0-0.2); Basophils % (auto) 0.3 % (0.0-2.0); Eosinophils # (auto) 0 10 ^3/uL (0-0.8); Eosinophils % (auto) 0.2 % (0.0-7.0); Hematocrit 39.2 % (36.0-46.0); Hemoglobin 12.6 g/dL (12.2-16.2); Lymphocytes # (auto) 0.8 10 ^3/uL (0.4-5.4); Lymphocytes % (auto) 7.9 % (10.0-50.0); Mean Corpuscular Hemoglobin 30.3 pg (28.0-32.0); Mean Corpuscular Hgb Conc. 32.3 g/dL (32.0-36.0); Mean Corpuscular Volume 93.7 fL (80.0-100.0); Monocytes # (auto) 0.5 10 ^3/uL (0-1.3); Monocytes % (auto) 5.1 % (0.0-12.0); Neutrophils # (auto) 8.6 10 ^3/uL (1.6-8.6); Neutrophils % (auto) 86.5 % (37.0-80.0); Red Blood Cells 4.18 10^6/uL (4.0-5.20); Red Cell Distribution Width 14.1 % (11.8-14.3)
[2022-07-27 11:24] LABS: Urine Bacteria NONE SEEN /hpf (None Seen); Urine Blood 2+ /uL (Negative); Urine Mucus FEW (None Seen); Urine Specific Gravity 1.022 (1.001-1.035); Urine WBC 48 /hpf (0 - 5)
[2022-07-27 11:35] LABS: Albumin 4.2 g/dL (3.4-5.0); Calcium 9.2 mg/dL (8.5-10.1)
[2022-07-27 11:38] LABS: BUN/Creatinine Ratio 18.1; Bilirubin, Total 0.5 mg/dL (0.2-1.0); Total Protein 8.2 g/dL (6.4-8.2)
[2022-07-27] MEDS ORDERED: NITR-87 PO (13:09)
[2022-07-27] MEDS ORDERED: SODIUM CHLORIDE 0.9% 1,000 ML IV ONE (13:15)
[2022-07-27] MEDS ORDERED: cefTRIAXone 1GM/50ML D5W 50 ML IV ONE (13:15)
[2022-07-27] MEDS ORDERED: IBUPROFEN 400 MG TAB PO ONE (15:00)
== END 2022-07-27 15:52 | disposition home or self-care (01) ==
LOC: ER 10:21
DX: N39.0 Urinary tract infection, site not specified (principal); J45.909 Unspecified asthma, uncomplicated; E11.9 Type 2 diabetes mellitus without complications; I10 Essential (primary) hypertension; Z90.49 Acquired absence of other specified parts of digestive tract; Z79.2 Long term (current) use of antibiotics; Z79.1 Long term (current) use of non-steroidal anti-inflammatories (NSAID); Z79.899 Other long term (current) drug therapy; Z88.8 Allergy status to other drugs, medicaments and biological substances
CPT/HCPCS: 36415; 80053; 81001; 83690; 85025; 96365; 99284; J0696; J7030

== ENCOUNTER 2022-09-09 09:23 | Inpatient (IN) | payer MEDICAID, OTHER ==
[~2022-09-09] VITALS: Ht 144.8 cm; Wt 75.8 kg
[2022-09-09 09:55] LABS: Urine Bacteria NONE SEEN /hpf (None Seen); Urine Blood 3+ /uL (Negative); Urine WBC 5 /hpf (0 - 5)
[2022-09-09 10:03] LABS: Basophils # (auto) 0 10 ^3/uL (0-0.2); Basophils % (auto) 0.2 % (0.0-2.0); Eosinophils # (auto) 0.2 10 ^3/uL (0-0.8); Eosinophils % (auto) 1.8 % (0.0-7.0); Hematocrit 36.5 % (36.0-46.0); Hemoglobin 12.1 g/dL (12.2-16.2); Lymphocytes # (auto) 1.6 10 ^3/uL (0.4-5.4); Lymphocytes % (auto) 13.8 % (10.0-50.0); Mean Corpuscular Hemoglobin 31.2 pg (28.0-32.0); Mean Corpuscular Hgb Conc. 33.1 g/dL (32.0-36.0); Mean Corpuscular Volume 94.2 fL (80.0-100.0); Monocytes # (auto) 0.8 10 ^3/uL (0-1.3); Monocytes % (auto) 6.8 % (0.0-12.0); Neutrophils % (auto) 77.4 % (37.0-80.0); Nucleated Red Blood Cells % 0.1 %; Red Blood Cells 3.87 10^6/uL (4.0-5.20); Red Cell Distribution Width 14.2 % (11.8-14.3); White Blood Cell 11.6 10^3/uL (4.4-10.8)
[2022-09-09 10:30] LABS: Albumin 3.6 g/dL (3.4-5.0); BUN/Creatinine Ratio 16.4; Bilirubin, Total 0.2 mg/dL (0.2-1.0); Calcium 8.8 mg/dL (8.5-10.1); Potassium 4.1 mmol/L (3.5-5.1); Total Protein 7.4 g/dL (6.4-8.2)
[2022-09-09 12:32] LABS: Alcohol, Urine < 3.0 mg/dL (0-10); Amphetamine Screen, Urine NEGATIVE (NEGATIVE); Barbiturate Scree,Urine NEGATIVE (NEGATIVE); Benzodiazephine Screen, Urine NEGATIVE (NEGATIVE); Cannabinoid Screen, Urine NEGATIVE (NEGATIVE); Cocaine Screen, Urine NEGATIVE (NEGATIVE); Opiate Scree,Urine NEGATIVE (NEGATIVE); Phencyclidine Screen, Urine NEGATIVE (NEGATIVE)
[2022-09-09] MEDS ORDERED: SODIUM CHLORIDE 0.9% 1,000 ML IV ONE (14:00)
[2022-09-09 18:06] LABS: Basophils # (auto) 0 10 ^3/uL (0-0.2); Basophils % (auto) 0.3 % (0.0-2.0); Eosinophils # (auto) 0.2 10 ^3/uL (0-0.8); Eosinophils % (auto) 1.3 % (0.0-7.0); Hematocrit 36.9 % (36.0-46.0); Hemoglobin 11.8 g/dL (12.2-16.2); Lymphocytes # (auto) 2.6 10 ^3/uL (0.4-5.4); Lymphocytes % (auto) 20.8 % (10.0-50.0); Mean Corpuscular Hemoglobin 30.1 pg (28.0-32.0); Mean Corpuscular Volume 94.1 fL (80.0-100.0); Monocytes # (auto) 0.8 10 ^3/uL (0-1.3); Monocytes % (auto) 6.8 % (0.0-12.0); Neutrophils # (auto) 8.7 10 ^3/uL (1.6-8.6); Neutrophils % (auto) 70.8 % (37.0-80.0); Red Blood Cells 3.92 10^6/uL (4.0-5.20); Red Cell Distribution Width 14.5 % (11.8-14.3); White Blood Cell 12.4 10^3/uL (4.4-10.8)
[2022-09-09 18:40] LABS: Albumin 3.6 g/dL (3.4-5.0); Calcium 8.2 mg/dL (8.5-10.1); Potassium 4.3 mmol/L (3.5-5.1)
[2022-09-09 18:42] LABS: BUN/Creatinine Ratio 16.6; Bilirubin, Total 0.2 mg/dL (0.2-1.0); Total Protein 7.2 g/dL (6.4-8.2)
[2022-09-09] MEDS ORDERED: ONDANSETRON HCL 4 MG/2 ML VIAL IV PRN (21:15)
[2022-09-09] MEDS ORDERED: DEXTROSE (50%) 50ML SYRG IV PRN (21:15)
[2022-09-09] MEDS ORDERED: DOCUSATE SOD 100 MG CAP PO PRN (21:15)
[2022-09-09] MEDS ORDERED: ACETAMINOPHEN 325 MG TAB PO PRN (21:15)
[2022-09-09] MEDS ORDERED: cefTRIAXone 1GM/50ML D5W 50 ML IV ONE (21:15)
[2022-09-09] MEDS: InsuLIN REG 1unit/0.01ml Soln (100units/ml) SC SCH (22:00)
[2022-09-09] MEDS ORDERED: NITROGLYCERIN 0.4 MG SL TAB SL PRN (23:00)
[2022-09-09] MEDS ORDERED: MORPHINE SULFATE INJ 2 MG/ml SYRG IV PRN (23:00)
[2022-09-10] MEDS: ACCU-CHEK COMFORT CURVE STRIP VI SCH ×5 (01:25→23:07)
[2022-09-10] MEDS: SODIUM CHLORIDE 0.9% 1,000 ML IV SCH ×3 (01:30→18:48)
[2022-09-10] MEDS: MORPHINE SULFATE INJ 2 MG/ml SYRG IV PRN ×4 (01:31→23:08)
[2022-09-10 05:52] LABS: Basophils # (auto) 0 10 ^3/uL (0-0.2); Basophils % (auto) 0.3 % (0.0-2.0); Eosinophils # (auto) 0.2 10 ^3/uL (0-0.8); Hematocrit 30.8 % (36.0-46.0); Hemoglobin 10.5 g/dL (12.2-16.2); Lymphocytes # (auto) 2.6 10 ^3/uL (0.4-5.4); Lymphocytes % (auto) 24.8 % (10.0-50.0); Mean Corpuscular Hemoglobin 32.5 pg (28.0-32.0); Mean Corpuscular Hgb Conc. 34.3 g/dL (32.0-36.0); Mean Corpuscular Volume 94.8 fL (80.0-100.0); Monocytes # (auto) 0.8 10 ^3/uL (0-1.3); Neutrophils # (auto) 6.8 10 ^3/uL (1.6-8.6); Neutrophils % (auto) 64.9 % (37.0-80.0); Nucleated Red Blood Cells % 0.1 %; Red Blood Cells 3.24 10^6/uL (4.0-5.20); Red Cell Distribution Width 14.2 % (11.8-14.3); White Blood Cell 10.4 10^3/uL (4.4-10.8)
[2022-09-10] MEDS: InsuLIN REG 1unit/0.01ml Soln (100units/ml) SC SCH ×4 (06:17→23:07)
[2022-09-10 06:18] LABS: Calcium 8.4 mg/dL (8.5-10.1); Potassium 3.9 mmol/L (3.5-5.1)
[2022-09-10 06:21] LABS: Albumin 3.1 g/dL (3.4-5.0)
[2022-09-10 06:24] LABS: Bilirubin, Total 0.2 mg/dL (0.2-1.0); Total Protein 6.6 g/dL (6.4-8.2)
[2022-09-10] MEDS: LACTATED RINGER'S 1,000 ML IV SCH ×2 (09:00→17:00)
[2022-09-10] MEDS: cefTRIAXone 1GM/50ML D5W 50 ML IV SCH (10:32)
[2022-09-10] MEDS: FAMOTIDINE (10MG/ML) 2ML VL IV SCH (10:33)
[2022-09-10] MEDS: HYDROcodone-ACET 5/325MG TAB PO PRN (10:55)
[2022-09-10] MEDS ORDERED: LINA290C PO (23:05)
[2022-09-10] MEDS ORDERED: OMEP-337 PO (23:05)
[2022-09-10] MEDS ORDERED: SUCR1SUS10 PO (23:05)
[2022-09-10] MEDS ORDERED: LISI2.5T47 PO (23:05)
[2022-09-10] MEDS ORDERED: ALBU108A5 PO (23:05)
[2022-09-10] MEDS ORDERED: DULO1CAP5 PO (23:05)
[2022-09-10] MEDS ORDERED: GABA400C PO (23:05)
[2022-09-10] MEDS ORDERED: FLUT1AER7 INH (23:05)
[2022-09-10] MEDS ORDERED: TRAZ50TA2 PO (23:05)
[2022-09-10] MEDS ORDERED: GABA400C11 PO (23:05)
[2022-09-10] MEDS ORDERED: PROP10TA57 PO (23:05)
[2022-09-11] MEDS: SODIUM CHLORIDE 0.9% 1,000 ML IV SCH ×2 (03:30→13:30)
[2022-09-11] MEDS: ACCU-CHEK COMFORT CURVE STRIP VI SCH ×3 (06:15→17:00)
[2022-09-11] MEDS: InsuLIN REG 1unit/0.01ml Soln (100units/ml) SC SCH ×3 (06:15→17:00)
[2022-09-11 06:20] LABS: Basophils # (auto) 0 10 ^3/uL (0-0.2); Basophils % (auto) 0.6 % (0.0-2.0); Eosinophils # (auto) 0.2 10 ^3/uL (0-0.8); Eosinophils % (auto) 3.6 % (0.0-7.0); Hematocrit 29.6 % (36.0-46.0); Lymphocytes # (auto) 1.9 10 ^3/uL (0.4-5.4); Lymphocytes % (auto) 31.1 % (10.0-50.0); Mean Corpuscular Hemoglobin 31.5 pg (28.0-32.0); Mean Corpuscular Hgb Conc. 33.7 g/dL (32.0-36.0); Mean Corpuscular Volume 93.2 fL (80.0-100.0); Monocytes # (auto) 0.5 10 ^3/uL (0-1.3); Monocytes % (auto) 8.9 % (0.0-12.0); Neutrophils # (auto) 3.3 10 ^3/uL (1.6-8.6); Neutrophils % (auto) 55.8 % (37.0-80.0); Nucleated Red Blood Cells % 0.1 %; Red Blood Cells 3.18 10^6/uL (4.0-5.20); Red Cell Distribution Width 13.9 % (11.8-14.3)
[2022-09-11] MEDS: LACTATED RINGER'S 1,000 ML IV SCH ×3 (06:34→17:00)
[2022-09-11] MEDS: HYDROcodone-ACET 5/325MG TAB PO PRN ×2 (06:34→15:06)
[2022-09-11 06:38] LABS: Potassium 4.3 mmol/L (3.5-5.1)
[2022-09-11 06:49] LABS: BUN/Creatinine Ratio 25.3
[2022-09-11 08:46] VITALS: BP 132/76
[2022-09-11] MEDS: FAMOTIDINE (10MG/ML) 2ML VL IV SCH (09:39)
[2022-09-11] MEDS: cefTRIAXone 1GM/50ML D5W 50 ML IV SCH (09:39)
[2022-09-11 13:00] VITALS: BP 134/75
[2022-09-11] MEDS ORDERED: CIPR250T3 PO (14:28)
[2022-09-11 16:31] VITALS: BP 134/75
[2022-09-13 15:02] LABS: Hepatitis C Antibody Negative (Negative)
== END 2022-09-11 17:00 | disposition home or self-care (01) | DRG 463 ==
LOC: ER 09:23 → OVERFLOW 22:50 → WEST WING 09-10 21:12
PROVIDERS: ADMIT Nurse Practitioner Family; ATTEND Internal Medicine
DX: N12 Tubulo-interstitial nephritis, not specified as acute or chronic (principal); N17.9 Acute kidney failure, unspecified; I10 Essential (primary) hypertension; E11.9 Type 2 diabetes mellitus without complications; D64.9 Anemia, unspecified; F41.9 Anxiety disorder, unspecified; N20.2 Calculus of kidney with calculus of ureter; Z20.822 Contact with and (suspected) exposure to COVID-19; J45.909 Unspecified asthma, uncomplicated; N83.209 Unspecified ovarian cyst, unspecified side; Z90.49 Acquired absence of other specified parts of digestive tract; Z87.442 Personal history of urinary calculi
CPT/HCPCS: 36415; 74176; 76830; 76856; 80048; 80053; 80307; 81001; 81025; 82962; 83605; 83690; 85025; 86803; 87086; 87340; 87426; 96361; 96365; G0378; J0696; J1815; J2405; J3490

== ENCOUNTER 2022-09-30 09:27 | Emergency (ER) | payer OTHER ==
[~2022-09-30] VITALS: Ht 144.8 cm; Wt 60.9 kg
[~2022-09-30 09:27] MED LIST changes: -ACE3T PO; -ACET-1080 PO; +ALBU108A5 PO; -AZIT250T8 PO; -AZITTAB PO; -CEPH-322 PO; -CEPH-510 PO; -CIPR-173 PO; +CIPR250T3 PO; +DULO1CAP5 PO; +FLUT1AER7 INH; +GABA400C PO; +GABA400C11 PO; -HYDR-4902 PO; -HYDR50CA PO; -IBUP800T27 PO; +LINA290C PO; +LISI2.5T47 PO; -METO-281 PO; -NAP500T PO; -NITR-87 PO; +OMEP-337 PO; -PRED20TA2 PO; -PROM1SOL4 PO; +PROP10TA57 PO; +SUCR1SUS10 PO; +TRAZ50TA2 PO
[2022-09-30 09:55] LABS: Urine Bacteria NONE SEEN /hpf (None Seen); Urine Blood Negative /uL (Negative); Urine Specific Gravity 1.018 (1.001-1.035); Urine WBC 1 /hpf (0 - 5)
[2022-09-30 10:38] LABS: Basophils # (auto) 0 10 ^3/uL (0-0.2); Basophils % (auto) 0.3 % (0.0-2.0); Eosinophils # (auto) 0.2 10 ^3/uL (0-0.8); Eosinophils % (auto) 1.4 % (0.0-7.0); Hematocrit 39.5 % (36.0-46.0); Hemoglobin 13.2 g/dL (12.2-16.2); Lymphocytes # (auto) 2.8 10 ^3/uL (0.4-5.4); Lymphocytes % (auto) 23.2 % (10.0-50.0); Mean Corpuscular Hemoglobin 31.4 pg (28.0-32.0); Mean Corpuscular Hgb Conc. 33.4 g/dL (32.0-36.0); Monocytes # (auto) 0.6 10 ^3/uL (0-1.3); Monocytes % (auto) 4.6 % (0.0-12.0); Neutrophils # (auto) 8.5 10 ^3/uL (1.6-8.6); Neutrophils % (auto) 70.5 % (37.0-80.0); Nucleated Red Blood Cells % 0.1 %; Red Cell Distribution Width 14.1 % (11.8-14.3)
[2022-09-30 10:56] LABS: Albumin 3.9 g/dL (3.4-5.0); Calcium 9.1 mg/dL (8.5-10.1); Potassium 4.2 mmol/L (3.5-5.1)
[2022-09-30 10:59] LABS: BUN/Creatinine Ratio 26.9 (10.0-20.0)
[2022-09-30 11:10] LABS: Bilirubin, Total 0.3 mg/dL (0.2-1.0); Total Protein 8.4 g/dL (6.4-8.2)
[2022-09-30] MEDS ORDERED: KETOROLAC TROMETH 30 MG/ML 1ML VIAL IM ONE (16:15)
[2022-09-30 16:29] VITALS: BP 115/90
== END 2022-09-30 16:44 | disposition home or self-care (01) ==
LOC: ER 09:27
DX: R10.2 Pelvic and perineal pain (principal); K59.00 Constipation, unspecified; K76.0 Fatty (change of) liver, not elsewhere classified; J45.909 Unspecified asthma, uncomplicated; E11.9 Type 2 diabetes mellitus without complications; I10 Essential (primary) hypertension; Z90.49 Acquired absence of other specified parts of digestive tract; Z98.51 Tubal ligation status; Z87.442 Personal history of urinary calculi; Z32.02 Encounter for pregnancy test, result negative
CPT/HCPCS: 36415; 74176; 76830; 76856; 80053; 81001; 81025; 82962; 83605; 85025; 96372; 99285; J1885

== ENCOUNTER 2022-11-04 10:54 | Emergency (ER) | payer OTHER ==
[~2022-11-04] VITALS: Ht 144.8 cm; Wt 62.6 kg
[2022-11-04 12:22] VITALS: BP 140/71
[2022-11-04 12:44] LABS: Basophils # (auto) 0 10 ^3/uL (0-0.2); Basophils % (auto) 0.3 % (0.0-2.0); Eosinophils # (auto) 0.2 10 ^3/uL (0-0.8); Eosinophils % (auto) 1.7 % (0.0-7.0); Hematocrit 36.9 % (36.0-46.0); Hemoglobin 12.2 g/dL (12.2-16.2); Lymphocytes # (auto) 2.1 10 ^3/uL (0.4-5.4); Lymphocytes % (auto) 21.8 % (10.0-50.0); Mean Corpuscular Hemoglobin 31.2 pg (28.0-32.0); Mean Corpuscular Hgb Conc. 33.2 g/dL (32.0-36.0); Mean Corpuscular Volume 93.9 fL (80.0-100.0); Monocytes # (auto) 0.7 10 ^3/uL (0-1.3); Neutrophils # (auto) 6.7 10 ^3/uL (1.6-8.6); Neutrophils % (auto) 69.2 % (37.0-80.0); Nucleated Red Blood Cells % 0.1 %; Red Blood Cells 3.93 10^6/uL (4.0-5.20); Red Cell Distribution Width 13.5 % (11.8-14.3); White Blood Cell 9.7 10^3/uL (4.4-10.8)
[2022-11-04] MEDS ORDERED: KETOROLAC TROMETH 60MG/2ML VIAL IM ONE (12:45)
[2022-11-04 13:13] LABS: Urine Bacteria FEW /hpf (None Seen); Urine Blood Negative /uL (Negative); Urine Hyaline Cast FEW /lpf (0 - 2); Urine Mucus FEW (None Seen); Urine WBC 6 /hpf (0 - 5)
[2022-11-04 13:22] LABS: Potassium 4.1 mmol/L (3.5-5.1)
[2022-11-04 13:29] LABS: Albumin 3.6 g/dL (3.4-5.0); Bilirubin, Total 0.2 mg/dL (0.2-1.0); Calcium 8.9 mg/dL (8.5-10.1); Total Protein 7.4 g/dL (6.4-8.2)
[2022-11-04] MEDS ORDERED: IBUP800T27 PO (14:16)
== END 2022-11-04 14:35 | disposition home or self-care (01) ==
LOC: ER 10:54
DX: M54.50 Low back pain, unspecified (principal); N88.8 Other specified noninflammatory disorders of cervix uteri; J45.909 Unspecified asthma, uncomplicated; E11.9 Type 2 diabetes mellitus without complications; I10 Essential (primary) hypertension; Z90.49 Acquired absence of other specified parts of digestive tract; Z98.51 Tubal ligation status; Z87.442 Personal history of urinary calculi; Z88.6 Allergy status to analgesic agent
CPT/HCPCS: 36415; 76775; 76830; 76856; 80053; 81001; 81025; 85025; 96372; 99285; J1885

== ENCOUNTER 2022-11-18 11:39 | Emergency (ER) | payer OTHER ==
[~2022-11-18] VITALS: Ht 144.8 cm; Wt 60.0 kg
[~2022-11-18 11:39] MED LIST changes: +IBUP800T27 PO
[2022-11-18 13:09] LABS: Urine Bacteria FEW /hpf (None Seen); Urine Blood Negative /uL (Negative); Urine Specific Gravity 1.025 (1.001-1.035); Urine WBC <1 /hpf (0 - 5)
[2022-11-18 14:16] VITALS: BP 132/84
== END 2022-11-18 14:19 | disposition home or self-care (01) ==
LOC: ER 11:39
DX: S80.01XA Contusion of right knee, initial encounter (principal); J45.909 Unspecified asthma, uncomplicated; E11.9 Type 2 diabetes mellitus without complications; I10 Essential (primary) hypertension; Z90.49 Acquired absence of other specified parts of digestive tract; Z98.51 Tubal ligation status; Z87.442 Personal history of urinary calculi; Z88.6 Allergy status to analgesic agent; X58.XXXA Exposure to other specified factors, initial encounter; Y93.89 Activity, other specified; Y92.89 Other specified places as the place of occurrence of the external cause; Y99.8 Other external cause status
CPT/HCPCS: 73560; 81001

== ENCOUNTER 2022-12-14 10:00 | Emergency (ER) | payer OTHER ==
[~2022-12-14] VITALS: Ht 144.8 cm; Wt 63.6 kg
[~2022-12-14 10:00] MED LIST changes: +GABA-1251 PO; -GABA400C11 PO; +IBUP-1456 PO; -IBUP800T27 PO; -PROP10TA57 PO; +PROP1TAB51 PO; -SUCR1SUS10 PO; +SUCR1SUS26 PO; +TRAZ-227 PO; -TRAZ50TA2 PO
[2022-12-14 10:59] LABS: Urine Bacteria NONE SEEN /hpf (None Seen); Urine Blood TRACE /uL (Negative); Urine Mucus FEW (None Seen); Urine WBC 5 /hpf (0 - 5)
[2022-12-14 11:11] LABS: Basophils # (auto) 0.1 10 ^3/uL (0-0.2); Basophils % (auto) 0.5 % (0.0-2.0); Eosinophils # (auto) 0.2 10 ^3/uL (0-0.8); Eosinophils % (auto) 2.5 % (0.0-7.0); Hematocrit 34.2 % (36.0-46.0); Hemoglobin 11.7 g/dL (12.2-16.2); Lymphocytes % (auto) 21.1 % (10.0-50.0); Mean Corpuscular Hemoglobin 32.2 pg (28.0-32.0); Mean Corpuscular Hgb Conc. 34.3 g/dL (32.0-36.0); Mean Corpuscular Volume 93.7 fL (80.0-100.0); Monocytes # (auto) 0.6 10 ^3/uL (0-1.3); Monocytes % (auto) 6.5 % (0.0-12.0); Neutrophils # (auto) 6.7 10 ^3/uL (1.6-8.6); Neutrophils % (auto) 69.4 % (37.0-80.0); Nucleated Red Blood Cells % 0.1 %; Red Blood Cells 3.65 10^6/uL (4.0-5.20); Red Cell Distribution Width 12.8 % (11.8-14.3); White Blood Cell 9.6 10^3/uL (4.4-10.8)
[2022-12-14 11:28] LABS: Albumin 3.5 g/dL (3.4-5.0); Calcium 8.2 mg/dL (8.5-10.1); Potassium 4.1 mmol/L (3.5-5.1)
[2022-12-14 11:32] LABS: Bilirubin, Total 0.4 mg/dL (0.2-1.0); Total Protein 7.5 g/dL (6.4-8.2)
[2022-12-14 20:15] VITALS: BP 144/78
[2022-12-14] MEDS ORDERED: CEPH500C PO (20:19)
== END 2022-12-14 20:33 | disposition home or self-care (01) ==
LOC: ER 10:00
DX: N70.11 Chronic salpingitis (principal); D25.9 Leiomyoma of uterus, unspecified; R07.89 Other chest pain; F41.9 Anxiety disorder, unspecified; J45.909 Unspecified asthma, uncomplicated; E11.9 Type 2 diabetes mellitus without complications; I10 Essential (primary) hypertension; Z87.442 Personal history of urinary calculi; Z98.51 Tubal ligation status; Z90.49 Acquired absence of other specified parts of digestive tract; Z98.890 Other specified postprocedural states; Z88.8 Allergy status to other drugs, medicaments and biological substances
CPT/HCPCS: 36415; 74176; 76830; 76856; 80053; 81001; 81025; 83605; 83690; 84484; 85025; 85652; 86141; 99284; J7030

== ENCOUNTER 2022-12-27 11:27 | Inpatient (IN) | payer OTHER ==
[~2022-12-27] VITALS: Ht 144.8 cm; Wt 66.5 kg
[~2022-12-27 11:27] MED LIST changes: +CEPH500C PO
[2022-12-27 11:48] LABS: Basophils # (auto) 0 10 ^3/uL (0-0.2); Basophils % (auto) 0.2 % (0.0-2.0); Eosinophils # (auto) 0.3 10 ^3/uL (0-0.8); Hematocrit 35.2 % (36.0-46.0); Hemoglobin 11.8 g/dL (12.2-16.2); Lymphocytes % (auto) 27.6 % (10.0-50.0); Mean Corpuscular Hemoglobin 31.2 pg (28.0-32.0); Mean Corpuscular Hgb Conc. 33.5 g/dL (32.0-36.0); Mean Corpuscular Volume 93.3 fL (80.0-100.0); Monocytes # (auto) 0.7 10 ^3/uL (0-1.3); Monocytes % (auto) 6.9 % (0.0-12.0); Neutrophils # (auto) 6.7 10 ^3/uL (1.6-8.6); Neutrophils % (auto) 62.3 % (37.0-80.0); Nucleated Red Blood Cells % 0.1 %; Red Blood Cells 3.77 10^6/uL (4.0-5.20); Red Cell Distribution Width 12.8 % (11.8-14.3); White Blood Cell 10.7 10^3/uL (4.4-10.8)
[2022-12-27 12:07] LABS: Albumin 3.3 g/dL (3.4-5.0); Calcium 8.6 mg/dL (8.5-10.1)
[2022-12-27 12:10] LABS: Bilirubin, Total 0.2 mg/dL (0.2-1.0)
[2022-12-27] MEDS ORDERED: ASPirin 325 MG TAB PO ONE (15:45)
[2022-12-27] MEDS ORDERED: DEXTROSE (50%) 50ML SYRG IV PRN (17:00)
[2022-12-27] MEDS ORDERED: IPRATROPIUM BROM 0.5 MG/2.5ML INH SOL NEB PRN (17:00)
[2022-12-27] MEDS ORDERED: ALBUTEROL SULF 2.5 MG/0.5ML(0.5%) NEB SOLN NEB PRN (17:00)
[2022-12-27] MEDS ORDERED: NITROGLYCERIN 0.4 MG SL TAB SL PRN (17:00)
[2022-12-27 17:20] VITALS: BP 143/93
[2022-12-27] MEDS ORDERED: hydrALAZINE HCL 20 MG/ML VL IV PRN (17:30)
[2022-12-27] MEDS: InsuLIN REG 1unit/0.01ml Soln (100units/ml) SC SCH ×2 (18:35→22:15)
[2022-12-27] MEDS: ACCU-CHEK COMFORT CURVE STRIP VI SCH ×2 (18:35→22:15)
[2022-12-27] MEDS ORDERED: ATORVASTATIN 20 MG TAB PO SCH (22:00)
[2022-12-27] MEDS: MONTELUKAST SODIUM 10 MG TAB PO SCH (22:15)
[2022-12-28] MEDS: MORPHINE SULFATE INJ 2 MG/ml SYRG IV PRN ×3 (02:46→20:45)
[2022-12-28] MEDS: InsuLIN REG 1unit/0.01ml Soln (100units/ml) SC SCH ×4 (06:38→22:51)
[2022-12-28] MEDS: ACCU-CHEK COMFORT CURVE STRIP VI SCH ×4 (06:38→22:54)
[2022-12-28 06:43] LABS: Basophils # (auto) 0.1 10 ^3/uL (0-0.2); Basophils % (auto) 0.4 % (0.0-2.0); Eosinophils # (auto) 0.2 10 ^3/uL (0-0.8); Hematocrit 32.4 % (36.0-46.0); Hemoglobin 10.9 g/dL (12.2-16.2); Lymphocytes # (auto) 3.1 10 ^3/uL (0.4-5.4); Mean Corpuscular Hemoglobin 31.3 pg (28.0-32.0); Mean Corpuscular Hgb Conc. 33.5 g/dL (32.0-36.0); Mean Corpuscular Volume 93.2 fL (80.0-100.0); Monocytes # (auto) 0.9 10 ^3/uL (0-1.3); Monocytes % (auto) 7.1 % (0.0-12.0); Neutrophils # (auto) 7.8 10 ^3/uL (1.6-8.6); Neutrophils % (auto) 64.5 % (37.0-80.0); Nucleated Red Blood Cells % 0.1 %; Red Blood Cells 3.48 10^6/uL (4.0-5.20); Red Cell Distribution Width 12.8 % (11.8-14.3)
[2022-12-28 06:44] LABS: Albumin 3.1 g/dL (3.4-5.0); Anion Gap 9 (5-15); Carbon Dioxide 24 mmol/L (21-32); Chloride 107 mmol/L (98-107); Potassium 3.8 mmol/L (3.5-5.1); Sodium 140 mmol/L (136-145)
[2022-12-28 06:51] LABS: Alanine Aminotransferase 25 U/L (13-56); Alkaline Phosphatase 80 U/L (45-117); Aspartate Aminotransferase 19 U/L (15-37); BUN/Creatinine Ratio 23.8 (10.0-20.0); Bilirubin, Total 0.2 mg/dL (0.2-1.0); Blood Urea Nitrogen 20 mg/dL (7-18); Calcium 8.6 mg/dL (8.5-10.1); Cholesterol 207 mg/dL (< 200); GFR African American 96 mL/min; GFR Non-African American 79 mL/min; Glucose 157 mg/dL (74-106); HDL Cholesterol 30 mg/dL (40-59); Total Protein 6.5 g/dL (6.4-8.2); Triglycerides 823 mg/dL (< 150)
[2022-12-28] MEDS: PANTOPRAZOLE 40 MG TAB PO SCH (10:44)
[2022-12-28] MEDS: ENOXAPARIN SOD 40 MG/0.4 ML SYRINGE SC SCH (10:44)
[2022-12-28] MEDS: ASPirin 81 mg TAB PO SCH (10:44)
[2022-12-28 19:50] VITALS: BP 131/86
[2022-12-28 22:00] VITALS: BP 131/86
[2022-12-28] MEDS: MONTELUKAST SODIUM 10 MG TAB PO SCH (22:54)
[2022-12-29 05:00] VITALS: BP 132/86
[2022-12-29 05:41] LABS: Basophils # (auto) 0 10 ^3/uL (0-0.2); Basophils % (auto) 0.3 % (0.0-2.0); Eosinophils # (auto) 0.2 10 ^3/uL (0-0.8); Eosinophils % (auto) 2.1 % (0.0-7.0); Hematocrit 33.7 % (36.0-46.0); Hemoglobin 11.5 g/dL (12.2-16.2); Lymphocytes # (auto) 2.7 10 ^3/uL (0.4-5.4); Lymphocytes % (auto) 26.5 % (10.0-50.0); Mean Corpuscular Hemoglobin 31.6 pg (28.0-32.0); Mean Corpuscular Hgb Conc. 34.1 g/dL (32.0-36.0); Mean Corpuscular Volume 92.7 fL (80.0-100.0); Monocytes # (auto) 0.7 10 ^3/uL (0-1.3); Monocytes % (auto) 7.2 % (0.0-12.0); Neutrophils # (auto) 6.6 10 ^3/uL (1.6-8.6); Neutrophils % (auto) 63.9 % (37.0-80.0); Nucleated Red Blood Cells % 0.1 %; Red Blood Cells 3.64 10^6/uL (4.0-5.20); Red Cell Distribution Width 12.7 % (11.8-14.3); White Blood Cell 10.3 10^3/uL (4.4-10.8)
[2022-12-29 05:53] LABS: BUN/Creatinine Ratio 24.6 (10.0-20.0); Calcium 8.3 mg/dL (8.5-10.1); Potassium 3.8 mmol/L (3.5-5.1)
[2022-12-29] MEDS: InsuLIN REG 1unit/0.01ml Soln (100units/ml) SC SCH ×4 (06:19→21:23)
[2022-12-29] MEDS: ACCU-CHEK COMFORT CURVE STRIP VI SCH ×4 (06:19→21:22)
[2022-12-29 09:00] VITALS: BP 146/91
[2022-12-29] MEDS: ASPirin 81 mg TAB PO SCH (10:05)
[2022-12-29] MEDS: PANTOPRAZOLE 40 MG TAB PO SCH (10:06)
[2022-12-29] MEDS: ENOXAPARIN SOD 40 MG/0.4 ML SYRINGE SC SCH (10:06)
[2022-12-29 13:00] VITALS: BP 117/79
[2022-12-29 16:31] VITALS: BP 125/81
[2022-12-29] MEDS: MORPHINE SULFATE INJ 2 MG/ml SYRG IV PRN (18:32)
[2022-12-29] MEDS: MONTELUKAST SODIUM 10 MG TAB PO SCH (21:18)
[2022-12-29 22:00] VITALS: BP 116/82
[2022-12-30 05:00] VITALS: BP 112/83
[2022-12-30] MEDS: MORPHINE SULFATE INJ 2 MG/ml SYRG IV PRN (06:36)
[2022-12-30] MEDS: InsuLIN REG 1unit/0.01ml Soln (100units/ml) SC SCH ×4 (06:37→21:58)
[2022-12-30] MEDS: ACCU-CHEK COMFORT CURVE STRIP VI SCH ×4 (06:37→21:42)
[2022-12-30 09:00] VITALS: BP 116/78
[2022-12-30] MEDS: ASPirin 81 mg TAB PO SCH (10:07)
[2022-12-30] MEDS: PANTOPRAZOLE 40 MG TAB PO SCH (10:07)
[2022-12-30] MEDS: ENOXAPARIN SOD 40 MG/0.4 ML SYRINGE SC SCH (10:07)
[2022-12-30 10:16] LABS: Hepatitis C Antibody Negative (Negative)
[2022-12-30 13:00] VITALS: BP 103/77
[2022-12-30 17:00] VITALS: BP 131/92
[2022-12-30] MEDS: MONTELUKAST SODIUM 10 MG TAB PO SCH (21:42)
[2022-12-30 22:00] VITALS: BP 124/79
[2022-12-31 05:00] VITALS: BP 118/75
[2022-12-31 06:05] LABS: Basophils # (auto) 0.1 10 ^3/uL (0-0.2); Basophils % (auto) 0.4 % (0.0-2.0); Eosinophils # (auto) 0.1 10 ^3/uL (0-0.8); Eosinophils % (auto) 0.8 % (0.0-7.0); Hematocrit 33.1 % (36.0-46.0); Hemoglobin 11.2 g/dL (12.2-16.2); Lymphocytes # (auto) 2.7 10 ^3/uL (0.4-5.4); Lymphocytes % (auto) 20.7 % (10.0-50.0); Mean Corpuscular Hemoglobin 31.3 pg (28.0-32.0); Mean Corpuscular Hgb Conc. 33.7 g/dL (32.0-36.0); Monocytes # (auto) 0.9 10 ^3/uL (0-1.3); Monocytes % (auto) 6.9 % (0.0-12.0); Neutrophils # (auto) 9.4 10 ^3/uL (1.6-8.6); Neutrophils % (auto) 71.2 % (37.0-80.0); Nucleated Red Blood Cells % 0.1 %; Red Blood Cells 3.56 10^6/uL (4.0-5.20); Red Cell Distribution Width 12.8 % (11.8-14.3); White Blood Cell 13.1 10^3/uL (4.4-10.8)
[2022-12-31 06:30] LABS: Calcium 8.5 mg/dL (8.5-10.1); Potassium 3.8 mmol/L (3.5-5.1)
[2022-12-31 06:32] LABS: BUN/Creatinine Ratio 17.1 (10.0-20.0)
[2022-12-31] MEDS: InsuLIN REG 1unit/0.01ml Soln (100units/ml) SC SCH ×2 (06:54→11:30)
[2022-12-31] MEDS: ACCU-CHEK COMFORT CURVE STRIP VI SCH ×2 (06:54→11:30)
[2022-12-31] MEDS ORDERED: ADENOSINE 56 MG in GIVE UN-DILUTED 0 ML IV ONE (08:30)
[2022-12-31 09:00] VITALS: BP 131/78
[2022-12-31] MEDS: ASPirin 81 mg TAB PO SCH (10:00)
[2022-12-31] MEDS: ENOXAPARIN SOD 40 MG/0.4 ML SYRINGE SC SCH (10:00)
[2022-12-31 15:09] VITALS: BP 131/78
== END 2022-12-31 16:30 | disposition home or self-care (01) | DRG 203 ==
LOC: ER 11:35 → TELE 16:52 → TELE-WESTW 12-28 15:23
PROVIDERS: ADMIT Nurse Practitioner Family; ATTEND Internal Medicine Pulmonary Disease
DX: M94.0 Chondrocostal junction syndrome [Tietze] (principal); E11.9 Type 2 diabetes mellitus without complications; E78.5 Hyperlipidemia, unspecified; F41.9 Anxiety disorder, unspecified; I10 Essential (primary) hypertension; E78.1 Pure hyperglyceridemia; J45.909 Unspecified asthma, uncomplicated; E66.01 Morbid (severe) obesity due to excess calories; Z68.31 Body mass index [BMI] 31.0-31.9, adult; Z88.8 Allergy status to other drugs, medicaments and biological substances; Z87.440 Personal history of urinary (tract) infections; Z87.442 Personal history of urinary calculi; Z90.49 Acquired absence of other specified parts of digestive tract; Z98.51 Tubal ligation status
CPT/HCPCS: 36415; 71045; 78452; 80048; 80053; 80061; 82962; 83036; 83880; 84484; 85025; 86803; 87081; 87340; 93005; 93017; 93306; G0378; J0153; J1815

== ENCOUNTER 2023-01-09 10:53 | Emergency (ER) | payer OTHER ==
[~2023-01-09] VITALS: Ht 144.8 cm; Wt 63.9 kg
[2023-01-09 12:36] VITALS: BP 103/69
[2023-01-09] MEDS ORDERED: DexAMETHasone INJECTION 10 MG in D5W 5% 50 ML IV STA (12:43)
[2023-01-09] MEDS ORDERED: KETOROLAC TROMETH 30 MG/ML 1ML VIAL IV ONE (12:45)
[2023-01-09] MEDS ORDERED: DexAMETHasone 4 MG TAB PO ONE (13:15)
[2023-01-09] MEDS ORDERED: IBUP-1454 PO (13:54)
== END 2023-01-09 14:03 | disposition home or self-care (01) ==
LOC: ER 10:53
DX: J02.9 Acute pharyngitis, unspecified (principal); M54.2 Cervicalgia; R51.9 Headache, unspecified; J45.909 Unspecified asthma, uncomplicated; E11.9 Type 2 diabetes mellitus without complications; I10 Essential (primary) hypertension; Z90.49 Acquired absence of other specified parts of digestive tract; Z98.51 Tubal ligation status; Z87.442 Personal history of urinary calculi; Z88.6 Allergy status to analgesic agent
CPT/HCPCS: 82962; 96374; 99283; J1100; J1885; J7060; J8540

== ENCOUNTER 2023-03-04 07:32 | Emergency (ER) | payer OTHER ==
[~2023-03-04] VITALS: Ht 144.8 cm; Wt 59.1 kg
[~2023-03-04 07:32] MED LIST changes: +IBUP-1454 PO
[2023-03-04 08:08] VITALS: BP 129/79; PULSE 97; RESP 16; TEMP 97; O2SAT 99
[2023-03-04] MEDS ORDERED: KETOROLAC TROMETH 60MG/2ML VIAL IM ONE (08:45)
[2023-03-04] MEDS ORDERED: TRAM50TA2 PO (08:58)
[2023-03-04] MEDS ORDERED: CIPR-173 PO (08:58)
== END 2023-03-04 09:06 | disposition home or self-care (01) ==
LOC: ER 07:32
DX: N39.0 Urinary tract infection, site not specified (principal); M54.42 Lumbago with sciatica, left side; F41.9 Anxiety disorder, unspecified; J45.909 Unspecified asthma, uncomplicated; E11.9 Type 2 diabetes mellitus without complications; I10 Essential (primary) hypertension; Z87.442 Personal history of urinary calculi; Z90.49 Acquired absence of other specified parts of digestive tract; Z98.890 Other specified postprocedural states
CPT/HCPCS: 81002; 96372; 99283; J1885

== ENCOUNTER 2023-03-08 07:45 | Emergency (ER) | payer OTHER ==
[~2023-03-08] VITALS: Ht 144.8 cm; Wt 62.5 kg
[2023-03-08 07:45] VITALS: BP 140/95; PULSE 118; TEMP 98.6
[~2023-03-08 07:45] MED LIST changes: +CIPR-173 PO; +TRAM50TA2 PO
[2023-03-08] MEDS ORDERED: LIDOCAINE VISCOUS 2% 15ML UD MT ONE (08:00)
[2023-03-08] MEDS ORDERED: ONDANSETRON HCL 4 MG/2 ML VIAL IM ONE ×2 (08:00→09:45)
[2023-03-08] MEDS ORDERED: DONNATAL 5ml ORAL Elix (BELLADONNA ALK-PHENOBARB) PO ONE (08:00)
[2023-03-08] MEDS ORDERED: ACETAMINOPHEN 325 MG TAB PO ONE (08:00)
[2023-03-08] MEDS ORDERED: MAALOX PLUS or MAALOX 30 ML PO ONE (08:00)
[2023-03-08] MEDS ORDERED: LORazepam 0.5 MG TAB PO ONE (08:00)
[2023-03-08 08:40] LABS: Urine Bacteria NONE SEEN /hpf (None Seen); Urine Blood TRACE /uL (Negative); Urine Clarity HAZY (Clear); Urine Color Colorless (Yellow); Urine Protein, UAD TRACE (Negative); Urine Specific Gravity 1.013 (1.001-1.035); Urine Urobilinogen Normal (Negative); Urine WBC 1 /hpf (0 - 5); Urine pH 6.5 (5.0-8.0)
[2023-03-08 09:28] LABS: COVID19 ANTIGEN SOFIA FIA NEGATIVE (NEGATIVE); Rapid Strep A Screen-Throat Negative
[2023-03-08] MEDS ORDERED: BENZLOZ2 MT (09:42)
[2023-03-08] MEDS ORDERED: BENZ200C64 PO (09:42)
[2023-03-08] MEDS ORDERED: ALBUAER3 IN (09:42)
[2023-03-08] MEDS ORDERED: AZITTAB PO (09:42)
[2023-03-08] MEDS ORDERED: ZOFR4T PO (09:42)
[2023-03-08] MEDS ORDERED: IPRATROPIUM BROM 0.5 MG/2.5ML INH SOL NEB ONE (09:45)
[2023-03-08] MEDS ORDERED: HYDROcodone-ACET 5/325MG TAB PO ONE (09:45)
[2023-03-08] MEDS ORDERED: ALBUTEROL SULF 2.5 MG/0.5ML(0.5%) NEB SOLN NEB ONE (09:45)
[2023-03-08] MEDS ORDERED: DexAMETHasone SOD PHOS 10MG/1ML VIAL INJ IM ONE (09:45)
[2023-03-08 10:13] VITALS: RESP 14; O2SAT 98
== END 2023-03-08 10:42 | disposition home or self-care (01) ==
LOC: ER 07:45
DX: J20.9 Acute bronchitis, unspecified (principal); J02.9 Acute pharyngitis, unspecified; R11.2 Nausea with vomiting, unspecified; J45.909 Unspecified asthma, uncomplicated; E11.9 Type 2 diabetes mellitus without complications; I10 Essential (primary) hypertension; R06.02 Shortness of breath; Z98.51 Tubal ligation status; Z20.822 Contact with and (suspected) exposure to COVID-19; Z90.49 Acquired absence of other specified parts of digestive tract; Z87.442 Personal history of urinary calculi
CPT/HCPCS: 36415; 71045; 81001; 82962; 87070; 87426; 87880; 94640; 96372; 99284; J1100; J2405; J7644

== ENCOUNTER 2023-03-11 07:08 | Emergency (ER) | payer OTHER ==
[~2023-03-11] VITALS: Ht 144.8 cm; Wt 60.0 kg
[~2023-03-11 07:08] MED LIST changes: +ALBUAER3 IN; +AZITTAB PO; +BENZ200C64 PO; +BENZLOZ2 MT; +ZOFR4T PO
[2023-03-11 07:55] VITALS: BP 117/85; PULSE 99; RESP 10; TEMP 96.3; O2SAT 100
[2023-03-11] MEDS ORDERED: LIDOCAINE 1% HCL (LOCAL ANESTH.) INJ 20ML MDV ONE (08:27)
[2023-03-11] MEDS ORDERED: LIDO2SOL26 MT (08:30)
[2023-03-11] MEDS ORDERED: LIDOCAINE 1% HCL (LOCAL ANESTH.) INJ 20ML MDV IJ ONE (08:30)
[2023-03-11] MEDS ORDERED: cefTRIAXone SOD 1,000 MG VL IM ONE (08:30)
[2023-03-11] MEDS ORDERED: LIDOCAINE VISCOUS 2% 15ML UD MT ONE (08:45)
== END 2023-03-11 08:46 | disposition home or self-care (01) ==
LOC: ER 07:08
DX: J03.90 Acute tonsillitis, unspecified (principal); J45.909 Unspecified asthma, uncomplicated; E11.9 Type 2 diabetes mellitus without complications; I10 Essential (primary) hypertension; Z90.49 Acquired absence of other specified parts of digestive tract; Z98.51 Tubal ligation status; Z87.442 Personal history of urinary calculi; Z91.041 Radiographic dye allergy status
CPT/HCPCS: 96372; 99283; J0696; J2001

== ENCOUNTER 2023-04-05 19:17 | Emergency (ER) | payer OTHER ==
[~2023-04-05] VITALS: Ht 144.8 cm; Wt 61.4 kg
[~2023-04-05 19:17] MED LIST changes: +LIDO2SOL26 MT
[2023-04-05 19:56] VITALS: BP 121/73; RESP 18
[2023-04-05] MEDS ORDERED: AMOX875T4 PO (22:04)
[2023-04-05] MEDS ORDERED: ACET500T58 PO (22:04)
[2023-04-05] MEDS ORDERED: PRED20TA2 PO (22:04)
[2023-04-05 22:07] VITALS: PULSE 100
[2023-04-05 22:13] VITALS: O2SAT 98
[2023-04-05] MEDS ORDERED: DexAMETHasone SOD PHOS 10MG/1ML VIAL INJ IM ONE (22:15)
[2023-04-05] MEDS ORDERED: cefTRIAXone SOD 1,000 MG VL IM ONE (22:15)
== END 2023-04-05 23:13 | disposition home or self-care (01) ==
LOC: ER 19:21
DX: J02.9 Acute pharyngitis, unspecified (principal); J45.909 Unspecified asthma, uncomplicated; E11.9 Type 2 diabetes mellitus without complications; E78.5 Hyperlipidemia, unspecified; I10 Essential (primary) hypertension; Z98.51 Tubal ligation status; Z87.442 Personal history of urinary calculi; Z90.49 Acquired absence of other specified parts of digestive tract; Z91.041 Radiographic dye allergy status
CPT/HCPCS: 96372; 99284; J0696; J1100

== ENCOUNTER 2023-04-19 05:11 | Inpatient (IN) | payer OTHER ==
[~2023-04-19] VITALS: Ht 205.7 cm; Wt 61.0 kg
[2023-04-19 02:51] VITALS: PULSE 87; RESP 19; O2SAT 97
[~2023-04-19 05:11] MED LIST changes: +ACET500T58 PO; +AMOX875T4 PO; +PRED20TA2 PO
[2023-04-19 06:53] LABS: Urine Bacteria NONE SEEN /hpf (None Seen); Urine Blood 2+ /uL (Negative); Urine Clarity Clear (Clear); Urine Color Yellow (Yellow); Urine Mucus FEW (None Seen); Urine Protein, UAD TRACE (Negative); Urine Specific Gravity 1.024 (1.001-1.035); Urine Urobilinogen Normal (Negative); Urine WBC 1 /hpf (0 - 5); Urine pH 5.5 (5.0-8.0)
[2023-04-19 06:55] LABS: Basophils # (auto) 0 10 ^3/uL (0-0.2); Basophils % (auto) 0.1 % (0.0-2.0); Eosinophils # (auto) 0.1 10 ^3/uL (0-0.8); Eosinophils % (auto) 0.2 % (0.0-7.0); Hematocrit 33.6 % (36.0-46.0); Lymphocytes # (auto) 1.7 10 ^3/uL (0.4-5.4); Lymphocytes % (auto) 6.5 % (10.0-50.0); Mean Corpuscular Hemoglobin 30.2 pg (28.0-32.0); Mean Corpuscular Hgb Conc. 32.6 g/dL (32.0-36.0); Mean Corpuscular Volume 92.4 fL (80.0-100.0); Monocytes # (auto) 1.1 10 ^3/uL (0-1.3); Monocytes % (auto) 4.2 % (0.0-12.0); Neutrophils # (auto) 23.2 10 ^3/uL (1.6-8.6); Red Blood Cells 3.64 10^6/uL (4.0-5.20); Red Cell Distribution Width 14.2 % (11.8-14.3); White Blood Cell 26.1 10^3/uL (4.4-10.8)
[2023-04-19 06:58] LABS: Alanine Aminotransferase 14 U/L (7-40); Albumin 4.2 g/dL (3.2-4.8); Alkaline Phosphatase 93 U/L (46-116); Anion Gap 9 (5-15); Aspartate Aminotransferase 12 U/L (13-40); BUN/Creatinine Ratio 17.1 (10.0-20.0); Blood Urea Nitrogen 12 mg/dL (9-23); Calcium 8.8 mg/dL (8.7-10.4); Carbon Dioxide 22 mmol/L (20-30); Chloride 105 mmol/L (98-107); Glucose 168 mg/dL (74-106); Lipase 43 U/L (12-53); Potassium 3.6 mmol/L (3.5-5.1); Sodium 136 mmol/L (136-145)
[2023-04-19 06:59] LABS: Bilirubin, Total 0.5 mg/dL (0.2-1.0); Total Protein 6.8 g/dL (5.7-8.2)
[2023-04-19] MEDS ORDERED: PANTOPRAZOLE 40 MG/10 ML VIAL INJ IV ONE (07:45)
[2023-04-19] MEDS ORDERED: MORPHINE SULFATE 4 MG/ML SYR/VIAL IV ONE (07:45)
[2023-04-19] MEDS ORDERED: SODIUM CHLORIDE 0.9% 1,000 ML IVB ONE (07:45)
[2023-04-19] MEDS ORDERED: PROCHLORPERAZINE EDISYLATE 5 MG/ML 2ML VIAL IV ONE (07:45)
[2023-04-19] MEDS ORDERED: ACETAMINOPHEN 325 MG TAB PO PRN (12:00)
[2023-04-19] MEDS ORDERED: ONDANSETRON HCL 4 MG/2 ML VIAL IV PRN (12:00)
[2023-04-19] MEDS: SODIUM CHLORIDE 0.9% 1,000 ML IV SCH ×2 (12:00→22:00)
[2023-04-19] MEDS ORDERED: PANTOPRAZOLE 40 MG TAB PO ONE (12:00)
[2023-04-19] MEDS ORDERED: SODIUM CHLORIDE 0.9% 1,000 ML IV ONE (12:00)
[2023-04-19] MEDS ORDERED: VANCOMYCIN HCL 125MG/5ML ORAL SOL PO ONE (12:00)
[2023-04-19] MEDS ORDERED: metroNIDAZOLE 500MG/100ML 100 ML IV ONE (12:00)
[2023-04-19] MEDS: SUCRALFATE 1 GM/10 ML ORAL SUSP PO SCH ×3 (12:54→22:39)
[2023-04-19] MEDS ORDERED: DEXTROSE (50%) 50ML SYRG IV PRN (13:00)
[2023-04-19] MEDS: VANCOMYCIN HCL 125MG/5ML ORAL SOL PO SCH ×3 (13:51→22:38)
[2023-04-19] MEDS: ACCU-CHEK COMFORT CURVE STRIP VI SCH ×2 (17:12→22:29)
[2023-04-19] MEDS: InsuLIN REG 1unit/0.01ml Soln (100units/ml) SC SCH ×2 (17:40→22:00)
[2023-04-19] MEDS ORDERED: PIPERACILLIN-TAZOB 3.375GM 0 ML IV ONE (20:53)
[2023-04-19] MEDS: metroNIDAZOLE 500MG/100ML 100 ML IV SCH (21:35)
[2023-04-19] MEDS ORDERED: GABAPENTIN 400 MG CAP PO SCH ×2 (22:00)
[2023-04-19] MEDS: DULoxetine HCL 30 MG CAP PO SCH (22:40)
[2023-04-20] VITALS (7 sets, daily range): BP systolic 98–117; BP diastolic 54–76; PULSE 70–101; RESP 16–20; TEMP 97.5–98.1; O2SAT 97–100
[2023-04-20] MEDS: metroNIDAZOLE 500MG/100ML 100 ML IV SCH ×3 (04:15→22:14)
[2023-04-20] MEDS: SUCRALFATE 1 GM/10 ML ORAL SUSP PO SCH ×4 (06:32→22:02)
[2023-04-20] MEDS: VANCOMYCIN HCL 125MG/5ML ORAL SOL PO SCH ×4 (06:32→22:13)
[2023-04-20] MEDS: InsuLIN REG 1unit/0.01ml Soln (100units/ml) SC SCH ×4 (06:33→22:00)
[2023-04-20] MEDS: ACCU-CHEK COMFORT CURVE STRIP VI SCH ×4 (06:33→22:12)
[2023-04-20 06:55] LABS: Basophils # (auto) 0 10 ^3/uL (0-0.2); Basophils % (auto) 0.4 % (0.0-2.0); Eosinophils # (auto) 0.1 10 ^3/uL (0-0.8); Eosinophils % (auto) 1.9 % (0.0-7.0); Hematocrit 29.9 % (36.0-46.0); Hemoglobin 9.7 g/dL (12.2-16.2); Lymphocytes # (auto) 2.2 10 ^3/uL (0.4-5.4); Mean Corpuscular Hemoglobin 30.5 pg (28.0-32.0); Mean Corpuscular Hgb Conc. 32.6 g/dL (32.0-36.0); Mean Corpuscular Volume 93.4 fL (80.0-100.0); Monocytes # (auto) 0.5 10 ^3/uL (0-1.3); Monocytes % (auto) 6.8 % (0.0-12.0); Neutrophils # (auto) 4.5 10 ^3/uL (1.6-8.6); Neutrophils % (auto) 60.9 % (37.0-80.0); Red Cell Distribution Width 14.6 % (11.8-14.3); White Blood Cell 7.5 10^3/uL (4.4-10.8)
[2023-04-20 07:12] LABS: Alanine Aminotransferase 18 U/L (7-40); Albumin 3.2 g/dL (3.2-4.8); Alkaline Phosphatase 67 U/L (46-116); Anion Gap 9 (5-15); Aspartate Aminotransferase 21 U/L (13-40); BUN/Creatinine Ratio 11.7 (10.0-20.0); Blood Urea Nitrogen 7 mg/dL (9-23); Calcium 7.6 mg/dL (8.5-10.1); Carbon Dioxide 21 mmol/L (20-30); Chloride 111 mmol/L (98-107); Glucose 117 mg/dL (74-106); Potassium 3.6 mmol/L (3.5-5.1); Sodium 141 mmol/L (136-145)
[2023-04-20 07:13] LABS: Bilirubin, Total 0.4 mg/dL (0.2-1.0); Total Protein 5.4 g/dL (5.7-8.2)
[2023-04-20] MEDS: SODIUM CHLORIDE 0.9% 1,000 ML IV SCH ×2 (08:00→18:07)
[2023-04-20] MEDS: PANTOPRAZOLE 40 MG TAB PO SCH (09:37)
[2023-04-20] MEDS: DULoxetine HCL 30 MG CAP PO SCH ×2 (09:39→22:02)
[2023-04-20] MEDS: ENOXAPARIN SOD 40 MG/0.4 ML SYRINGE SC SCH (09:43)
[2023-04-20] MEDS ORDERED: LEVO500T91 PO (11:24)
[2023-04-20] MEDS: HYDROcodone-ACET 5/325MG TAB PO PRN (22:04)
[2023-04-21] MEDS: metroNIDAZOLE 500MG/100ML 100 ML IV SCH ×2 (03:36→12:00)
[2023-04-21] MEDS: HYDROcodone-ACET 5/325MG TAB PO PRN ×2 (03:37→12:56)
[2023-04-21 05:00] VITALS: BP 104/55; PULSE 85; RESP 18; TEMP 97.8; O2SAT 96
[2023-04-21] MEDS: SODIUM CHLORIDE 0.9% 1,000 ML IV SCH ×2 (06:36→14:00)
[2023-04-21] MEDS: SUCRALFATE 1 GM/10 ML ORAL SUSP PO SCH ×2 (06:37→12:22)
[2023-04-21] MEDS: VANCOMYCIN HCL 125MG/5ML ORAL SOL PO SCH ×2 (06:37→12:00)
[2023-04-21] MEDS: ACCU-CHEK COMFORT CURVE STRIP VI SCH ×2 (06:38→12:22)
[2023-04-21] MEDS: InsuLIN REG 1unit/0.01ml Soln (100units/ml) SC SCH ×2 (06:39→12:26)
[2023-04-21 08:00] VITALS: O2SAT 100
[2023-04-21 08:30] VITALS: BP 112/66; PULSE 85; RESP 17; TEMP 97.7; O2SAT 97
[2023-04-21] MEDS: PANTOPRAZOLE 40 MG TAB PO SCH (10:04)
[2023-04-21] MEDS: DULoxetine HCL 30 MG CAP PO SCH (10:04)
[2023-04-21] MEDS: ENOXAPARIN SOD 40 MG/0.4 ML SYRINGE SC SCH (10:04)
[2023-04-21 10:33] LABS: Basophils # (auto) 0 10 ^3/uL (0-0.2); Basophils % (auto) 0.3 % (0.0-2.0); Eosinophils # (auto) 0.1 10 ^3/uL (0-0.8); Eosinophils % (auto) 1.8 % (0.0-7.0); Hematocrit 28.7 % (36.0-46.0); Hemoglobin 9.4 g/dL (12.2-16.2); Lymphocytes # (auto) 1.7 10 ^3/uL (0.4-5.4); Lymphocytes % (auto) 25.8 % (10.0-50.0); Mean Corpuscular Hemoglobin 30.7 pg (28.0-32.0); Mean Corpuscular Volume 93.1 fL (80.0-100.0); Monocytes # (auto) 0.6 10 ^3/uL (0-1.3); Monocytes % (auto) 8.9 % (0.0-12.0); Neutrophils # (auto) 4.2 10 ^3/uL (1.6-8.6); Neutrophils % (auto) 63.2 % (37.0-80.0); Red Blood Cells 3.08 10^6/uL (4.0-5.20); Red Cell Distribution Width 14.4 % (11.8-14.3); White Blood Cell 6.7 10^3/uL (4.4-10.8)
[2023-04-21 13:00] VITALS: BP 126/78; PULSE 94; RESP 18; TEMP 97.9; O2SAT 99
== END 2023-04-21 15:30 | disposition home or self-care (01) | DRG 249 ==
LOC: ER 05:11 → OVERFLOW 11:58 → EAST 04-20 01:26
PROVIDERS: ADMIT Nurse Practitioner Family; ATTEND Internal Medicine
DX: A05.9 Bacterial foodborne intoxication, unspecified (principal); K76.0 Fatty (change of) liver, not elsewhere classified; D25.9 Leiomyoma of uterus, unspecified; E11.9 Type 2 diabetes mellitus without complications; D64.9 Anemia, unspecified; D72.829 Elevated white blood cell count, unspecified; E78.5 Hyperlipidemia, unspecified; I10 Essential (primary) hypertension; F41.9 Anxiety disorder, unspecified; J45.909 Unspecified asthma, uncomplicated; Z83.3 Family history of diabetes mellitus; Z87.442 Personal history of urinary calculi; Z91.041 Radiographic dye allergy status; Z90.49 Acquired absence of other specified parts of digestive tract; Z82.49 Family history of ischemic heart disease and other diseases of the circulatory system; Z98.51 Tubal ligation status
CPT/HCPCS: 36415; 74176; 80053; 81001; 82962; 83036; 83690; 85025; 87045; 87177; 87427; 87493; 96361; 96374; 96375; C9113; G0378; J1815; J2543; J3490

== ENCOUNTER 2023-05-07 12:00 | Emergency (ER) | payer OTHER ==
[~2023-05-07] VITALS: Ht 144.8 cm; Wt 57.4 kg
[~2023-05-07 12:00] MED LIST changes: -AMOX875T4 PO; -AZITTAB PO; -CEPH500C PO; -CIPR-173 PO; -CIPR250T3 PO; +LEVO500T91 PO
[2023-05-07 12:28] VITALS: BP 156/69; PULSE 109; RESP 16; TEMP 98; O2SAT 98
[2023-05-07] MEDS ORDERED: cefTRIAXone SOD 1,000 MG VL IM ONE (12:45)
[2023-05-07] MEDS ORDERED: IBUP-1454 PO (12:57)
[2023-05-07] MEDS ORDERED: CEPH500C PO (12:57)
== END 2023-05-07 13:27 | disposition home or self-care (01) ==
LOC: ER 12:00
DX: J03.90 Acute tonsillitis, unspecified (principal); I10 Essential (primary) hypertension; E11.9 Type 2 diabetes mellitus without complications; E78.5 Hyperlipidemia, unspecified; J45.909 Unspecified asthma, uncomplicated; Z90.49 Acquired absence of other specified parts of digestive tract; Z79.1 Long term (current) use of non-steroidal anti-inflammatories (NSAID); Z79.899 Other long term (current) drug therapy; Z88.8 Allergy status to other drugs, medicaments and biological substances
CPT/HCPCS: 96372; 99283; J0696

== ENCOUNTER 2023-05-14 08:01 | Emergency (ER) | payer OTHER ==
[~2023-05-14] VITALS: Ht 144.8 cm; Wt 58.1 kg
[~2023-05-14 08:01] MED LIST changes: +CEPH500C PO
[2023-05-14 08:48] LABS: Basophils # (auto) 0 10 ^3/uL (0-0.2); Basophils % (auto) 0.3 % (0.0-2.0); Eosinophils # (auto) 0.1 10 ^3/uL (0-0.8); Eosinophils % (auto) 1.2 % (0.0-7.0); Hematocrit 37.2 % (36.0-46.0); Hemoglobin 12.1 g/dL (12.2-16.2); Lymphocytes # (auto) 3.5 10 ^3/uL (0.4-5.4); Lymphocytes % (auto) 32.7 % (10.0-50.0); Mean Corpuscular Hemoglobin 29.5 pg (28.0-32.0); Mean Corpuscular Hgb Conc. 32.5 g/dL (32.0-36.0); Mean Corpuscular Volume 90.9 fL (80.0-100.0); Monocytes % (auto) 9.5 % (0.0-12.0); Neutrophils # (auto) 6.1 10 ^3/uL (1.6-8.6); Neutrophils % (auto) 56.3 % (37.0-80.0); Red Blood Cells 4.09 10^6/uL (4.0-5.20); Red Cell Distribution Width 14.5 % (11.8-14.3); White Blood Cell 10.8 10^3/uL (4.4-10.8)
[2023-05-14 08:58] LABS: Chloride 107 mmol/L (98-107); Potassium 3.8 mmol/L (3.5-5.1); Sodium 137 mmol/L (136-145)
[2023-05-14 09:00] LABS: Anion Gap 7 (5-15); Carbon Dioxide 23 mmol/L (20-30)
[2023-05-14 09:01] LABS: Calcium 9.2 mg/dL (8.7-10.4)
[2023-05-14 09:05] LABS: Glucose 134 mg/dL (74-106)
[2023-05-14 09:06] LABS: Alkaline Phosphatase 93 U/L (46-116); BUN/Creatinine Ratio 15.9 (10.0-20.0); Blood Urea Nitrogen 14 mg/dL (9-23); Lipase 53 U/L (12-53)
[2023-05-14 09:07] LABS: Alanine Aminotransferase 10 U/L (7-40); Albumin 4.5 g/dL (3.2-4.8); Aspartate Aminotransferase 13 U/L (13-40)
[2023-05-14 09:08] LABS: Bilirubin, Total 0.2 mg/dL (0.2-1.0); Total Protein 7.3 g/dL (5.7-8.2)
[2023-05-14 09:28] LABS: Urine Bacteria NONE SEEN /hpf (None Seen); Urine Blood Negative /uL (Negative); Urine Clarity HAZY (Clear); Urine Color Yellow (Yellow); Urine Mucus FEW (None Seen); Urine Protein, UAD TRACE (Negative); Urine Specific Gravity 1.029 (1.001-1.035); Urine Urobilinogen Normal (Negative); Urine WBC 2 /hpf (0 - 5)
[2023-05-14] MEDS ORDERED: MAALOX PLUS or MAALOX 30 ML PO ONE (10:15)
[2023-05-14] MEDS ORDERED: DONNATAL 5ml ORAL Elix (BELLADONNA ALK-PHENOBARB) PO ONE (10:15)
[2023-05-14] MEDS ORDERED: LIDOCAINE VISCOUS 2% 15ML UD PO ONE (10:15)
[2023-05-14] MEDS ORDERED: DOCU-94 PO (11:59)
[2023-05-14] MEDS ORDERED: IBU600T PO (12:00)
[2023-05-14 12:10] VITALS: BP 123/86; PULSE 61; RESP 15; TEMP 97.6; O2SAT 99
== END 2023-05-14 12:12 | disposition home or self-care (01) ==
LOC: ER 08:01
DX: N20.0 Calculus of kidney (principal); K59.00 Constipation, unspecified; J45.909 Unspecified asthma, uncomplicated; E11.9 Type 2 diabetes mellitus without complications; E78.5 Hyperlipidemia, unspecified; I10 Essential (primary) hypertension; Z98.51 Tubal ligation status; Z90.49 Acquired absence of other specified parts of digestive tract
CPT/HCPCS: 36415; 74176; 80053; 81001; 83690; 85025

== ENCOUNTER 2023-06-12 03:41 | Emergency (ER) | payer OTHER ==
[~2023-06-12] VITALS: Ht 144.8 cm; Wt 59.0 kg
[~2023-06-12 03:41] MED LIST changes: +DOCU-94 PO; +IBU600T PO
[2023-06-12 04:07] VITALS: BP 126/86; TEMP 97.7
[2023-06-12 04:08] VITALS: PULSE 111
[2023-06-12] MEDS ORDERED: BENZ200C64 PO (04:43)
[2023-06-12] MEDS ORDERED: CEPH500C PO (04:43)
[2023-06-12] MEDS ORDERED: ALBUAER3 IN (04:43)
[2023-06-12] MEDS ORDERED: DexAMETHasone SOD PHOS 10MG/1ML VIAL INJ IM ONE (05:00)
[2023-06-12] MEDS ORDERED: ALBUTEROL SULF 2.5 MG/0.5ML(0.5%) NEB SOLN NEB ONE ×2 (05:00)
[2023-06-12] MEDS ORDERED: IPRATROPIUM BROM 0.5 MG/2.5ML INH SOL NEB ONE (05:00)
[2023-06-12 05:09] VITALS: RESP 20; O2SAT 96
== END 2023-06-12 05:39 | disposition home or self-care (01) ==
LOC: ER 03:41
DX: J45.909 Unspecified asthma, uncomplicated (principal); R07.89 Other chest pain; I10 Essential (primary) hypertension; E11.9 Type 2 diabetes mellitus without complications; E78.5 Hyperlipidemia, unspecified; Z90.49 Acquired absence of other specified parts of digestive tract
CPT/HCPCS: 71045; 94640; 96372; 99283; J1100; J7644

== ENCOUNTER 2023-06-24 18:49 | Emergency (ER) | payer OTHER ==
[~2023-06-24] VITALS: Ht 144.8 cm; Wt 59.0 kg
[2023-06-25] MEDS ORDERED: IBUP-1453 PO (00:10)
[2023-06-25] MEDS ORDERED: CLOT1CRE7 EX (00:10)
[2023-06-25] MEDS ORDERED: HYDROcodone-ACET 5/325MG TAB PO ONE (00:15)
[2023-06-25 00:39] VITALS: BP 133/81; PULSE 96; RESP 14; TEMP 99; O2SAT 100
== END 2023-06-25 00:39 | disposition home or self-care (01) ==
LOC: ER 18:49
DX: M21.611 Bunion of right foot (principal); B35.1 Tinea unguium; J45.909 Unspecified asthma, uncomplicated; E11.9 Type 2 diabetes mellitus without complications; E78.5 Hyperlipidemia, unspecified; I10 Essential (primary) hypertension; Z98.51 Tubal ligation status; Z90.49 Acquired absence of other specified parts of digestive tract; Z87.442 Personal history of urinary calculi; Z91.041 Radiographic dye allergy status
CPT/HCPCS: 73630; 93971

== ENCOUNTER 2023-07-26 04:20 | Emergency (ER) | payer OTHER ==
[~2023-07-26] VITALS: Ht 144.8 cm; Wt 60.0 kg
[~2023-07-26 04:20] MED LIST changes: +CIPR-173 PO; +CLOT1CRE7 EX; +IBUP-1453 PO
[2023-07-26 05:47] LABS: Basophils # (auto) 0 10 ^3/uL (0-0.2); Basophils % (auto) 0.4 % (0.0-2.0); Chloride 107 mmol/L (98-107); Eosinophils # (auto) 0.1 10 ^3/uL (0-0.8); Eosinophils % (auto) 1.5 % (0.0-7.0); Hematocrit 35.3 % (36.0-46.0); Hemoglobin 11.4 g/dL (12.2-16.2); Lymphocytes # (auto) 1.1 10 ^3/uL (0.4-5.4); Lymphocytes % (auto) 14.2 % (10.0-50.0); Mean Corpuscular Hgb Conc. 32.4 g/dL (32.0-36.0); Mean Corpuscular Volume 86.6 fL (80.0-100.0); Monocytes # (auto) 0.7 10 ^3/uL (0-1.3); Monocytes % (auto) 8.3 % (0.0-12.0); Neutrophils # (auto) 5.9 10 ^3/uL (1.6-8.6); Neutrophils % (auto) 75.6 % (37.0-80.0); Potassium 3.7 mmol/L (3.5-5.1); Red Blood Cells 4.08 10^6/uL (4.0-5.20); Red Cell Distribution Width 15.8 % (11.8-14.3); Sodium 137 mmol/L (136-145); White Blood Cell 7.9 10^3/uL (4.4-10.8)
[2023-07-26 05:48] LABS: Anion Gap 7 (5-15); Calcium 8.9 mg/dL (8.5-10.1); Carbon Dioxide 23 mmol/L (20-30)
[2023-07-26 05:53] LABS: BUN/Creatinine Ratio 14.7 (10.0-20.0); Blood Urea Nitrogen 10 mg/dL (9-23); Glucose 119 mg/dL (74-106)
[2023-07-26] MEDS ORDERED: AZIT1POW PO (06:28)
[2023-07-26 06:44] VITALS: BP 145/98; PULSE 92; PULSE 95; RESP 18; TEMP 98; O2SAT 100
== END 2023-07-26 06:47 | disposition home or self-care (01) ==
LOC: ER 04:20
DX: J20.9 Acute bronchitis, unspecified (principal); I10 Essential (primary) hypertension; E11.9 Type 2 diabetes mellitus without complications; E78.5 Hyperlipidemia, unspecified; J45.909 Unspecified asthma, uncomplicated; F41.9 Anxiety disorder, unspecified; Z87.442 Personal history of urinary calculi; Z98.890 Other specified postprocedural states; Z91.041 Radiographic dye allergy status; Z79.899 Other long term (current) drug therapy
CPT/HCPCS: 36415; 71045; 80048; 83880; 84484; 85025; 93005

== ENCOUNTER 2023-09-23 09:33 | Emergency (ER) | payer OTHER ==
[~2023-09-23] VITALS: Ht 144.8 cm; Wt 58.9 kg
[~2023-09-23 09:33] MED LIST changes: +AZIT1POW PO
[2023-09-23 10:12] LABS: Basophils # (auto) 0.1 10 ^3/uL (0-0.2); Basophils % (auto) 0.5 % (0.0-2.0); Eosinophils # (auto) 0.1 10 ^3/uL (0-0.8); Eosinophils % (auto) 1.2 % (0.0-7.0); Hematocrit 37.8 % (36.0-46.0); Hemoglobin 12.6 g/dL (12.2-16.2); Lymphocytes % (auto) 27.4 % (10.0-50.0); Mean Corpuscular Hemoglobin 30.1 pg (28.0-32.0); Mean Corpuscular Hgb Conc. 33.4 g/dL (32.0-36.0); Mean Corpuscular Volume 90.1 fL (80.0-100.0); Monocytes # (auto) 0.7 10 ^3/uL (0-1.3); Neutrophils # (auto) 7.1 10 ^3/uL (1.6-8.6); Neutrophils % (auto) 64.9 % (37.0-80.0); Red Cell Distribution Width 15.8 % (11.8-14.3)
[2023-09-23 10:25] LABS: Chloride 104 mmol/L (98-107); Potassium 3.8 mmol/L (3.5-5.1); Sodium 138 mmol/L (136-145)
[2023-09-23 10:26] LABS: Anion Gap 9 (5-15); Carbon Dioxide 25 mmol/L (20-30)
[2023-09-23 10:27] LABS: Calcium 9.5 mg/dL (8.5-10.1)
[2023-09-23 10:30] VITALS: PULSE 97; RESP 15; TEMP 98.4; O2SAT 97
[2023-09-23 10:31] LABS: BUN/Creatinine Ratio 13.1 (10.0-20.0); Blood Urea Nitrogen 11 mg/dL (9-23); Glucose 119 mg/dL (74-106)
[2023-09-23] MEDS: HYDROcodone-ACET 10/325MG TAB PO ONE (10:37)
[2023-09-23 11:12] LABS: Urine Bacteria FEW /hpf (None Seen); Urine Blood Negative /uL (Negative); Urine Clarity HAZY (Clear); Urine Color Yellow (Yellow); Urine Mucus FEW (None Seen); Urine Protein, UAD Negative (Negative); Urine Specific Gravity 1.025 (1.001-1.035); Urine Urobilinogen Normal (Negative); Urine WBC 3 /hpf (0 - 5)
[2023-09-23] MEDS: cefTRIAXone SOD 1,000 MG VL IM ONE (12:08)
[2023-09-23 12:39] VITALS: BP 118/68; PULSE 89; RESP 10; O2SAT 97
[2023-09-23] MEDS ORDERED: NITR-87 PO (12:50)
== END 2023-09-23 13:33 | disposition home or self-care (01) ==
LOC: ER 09:33
DX: N39.0 Urinary tract infection, site not specified (principal); I10 Essential (primary) hypertension; E11.9 Type 2 diabetes mellitus without complications; E78.5 Hyperlipidemia, unspecified; J45.909 Unspecified asthma, uncomplicated; Z90.49 Acquired absence of other specified parts of digestive tract; Z79.1 Long term (current) use of non-steroidal anti-inflammatories (NSAID); Z79.899 Other long term (current) drug therapy; Z88.8 Allergy status to other drugs, medicaments and biological substances
CPT/HCPCS: 36415; 80048; 81001; 84484; 85025; 93005; 96372; 99284; J0696

== ENCOUNTER 2023-10-27 09:23 | Emergency (ER) | payer MEDICAID, OTHER ==
[~2023-10-27] VITALS: Ht 144.8 cm; Wt 61.7 kg
[~2023-10-27 09:23] MED LIST changes: +NITR-87 PO
[2023-10-27 09:46] VITALS: BP 126/69; PULSE 92; RESP 16; TEMP 97.7; O2SAT 98
[2023-10-27] MEDS ORDERED: AZIT-185 PO (10:03)
== END 2023-10-27 10:08 | disposition home or self-care (01) ==
LOC: ER 09:23
DX: J03.90 Acute tonsillitis, unspecified (principal); J45.909 Unspecified asthma, uncomplicated; E78.5 Hyperlipidemia, unspecified; I10 Essential (primary) hypertension; Z90.49 Acquired absence of other specified parts of digestive tract; Z98.51 Tubal ligation status; Z87.442 Personal history of urinary calculi

== ENCOUNTER 2024-01-11 04:23 | Emergency (ER) | payer SELFPAY ==
[~2024-01-11] VITALS: Ht 144.8 cm; Wt 62.2 kg
[~2024-01-11 04:23] MED LIST changes: +AZIT-185 PO
[2024-01-11 06:37] VITALS: BP 147/88; PULSE 87; RESP 16; TEMP 97.6; O2SAT 100
[2024-01-11] MEDS: KETOROLAC TROMETH 30 MG/ML 1ML VIAL IM ONE (06:56)
[2024-01-11] MEDS ORDERED: IBUP-1454 PO (07:58)
== END 2024-01-11 08:09 | disposition home or self-care (01) ==
LOC: ER 04:23
DX: N64.4 Mastodynia (principal); J45.909 Unspecified asthma, uncomplicated; E78.5 Hyperlipidemia, unspecified; I10 Essential (primary) hypertension; Z91.040 Latex allergy status; Z79.1 Long term (current) use of non-steroidal anti-inflammatories (NSAID); Z79.899 Other long term (current) drug therapy; Z90.49 Acquired absence of other specified parts of digestive tract; Z98.891 History of uterine scar from previous surgery; Z98.890 Other specified postprocedural states
CPT/HCPCS: 96372; 99283; J1885

== ENCOUNTER 2024-07-06 07:11 | Emergency (ER) | payer MEDICAID ==
[~2024-07-06] VITALS: Ht 144.8 cm; Wt 59.0 kg
--- NOTE | 2024-07-06 08:01 | ED.PDOC ---
GI ASSESSMENT HPI Comments A 43 YEAR OLD FEMALE PRESENTS TO THE ED WITH CHIEF COMPLAINT OF ABDOMINAL PAIN. PATIENT REPORTS THAT SHE HAS BEEN EXPERIENCING EPIGASTRIC ABDOMINAL PAIN THAT RADIATES TO HER RIGHT LOWER BACK WITH ASSOCIATED NAUSEA, VOMITING, AND DIARRHEA FOR THE PAST 2 DAYS. PATIENT DENIES ANY FEVER, CHILLS, DYSURIA, HEMATEMESIS, OR CHEST PAIN. NO OTHER SYMPTOMS REPORTED AT THIS TIME OF CARE. Chief Complaint: Abdominal Pain Time Seen by MD: 07:59 Primary Care Provider: DR. HUNTLEY Reviewed Notes: Nurses Notes, Medications, Allergies Allergies: Coded Allergies: Iodine (Verified Allergy, Severe, 11/19/18) Home Meds Active Scripts Metoclopramide Hcl (Reglan) 10 Mg Tab, 10 MG PO BID, #30 TAB Prov:NARENDRA GONZALEZ 07/06/24 Dicyclomine Hcl (BENTYL CAPSULE) 10 Mg Cp, 20 MG PO TID, #30 CAP Prov:NARENDRA GONZALEZ 07/06/24 Ibuprofen (Ibuprofen) 600 Mg Tab, 1 TAB PO TIDP PRN for 30 Days, #90 TAB 0 Refills Prov:FARHAD JACKMAN NP 01/11/24 Lidocaine HCl (Mouth-Throat) (Lidocaine HCl Viscous) 2 % Radha, 5 ML MT TID, #100 ML Prov:NARENDRA GONZALEZ 10/27/23 Azithromycin (ZITHROMAX TABLET) 250 Mg Tb, 250 MG PO DAILY, #6 TAB Prov:NARENDRA GONZALEZ 10/27/23 Nitrofurantoin Monohydrate Mac (Macrobid) 100 Mg Cap, 100 MG PO BID for 7 Days, #14 CAP Prov:TORI SHARMA MD 09/23/23 Azithromycin (Zithromax) 1 Gm Pow, 1 PACK PO ONCE, #1 PACK Prov:BRAULIO GUIDO MD 07/26/23 Ciprofloxacin Hcl (Cipro) 500 Mg Tab, 1 TAB PO BID, #14 TAB Prov:BRAULIO GUIDO MD 07/10/23 Tramadol Hcl (Tramadol Hcl) 50 Mg Tab, 50 MG PO Q8HP PRN for 5 Days, #15 TAB Prov:BRAULIO GUIDO MD 07/10/23 Ondansetron Odt 4MG Tab (ZOFRAN PO) 4 Mg Tb, 4 MG PO Q8HP PRN for 5 Days, #15 TAB ODT TAB-DISSOLVE IN MOUTH, THEN SWALLOW Prov:BRAULIO GUIDO MD 07/10/23 Ibuprofen (Ibuprofen) 800 Mg Tab, 1 TAB PO TID PRN, #30 TAB 0 Refills Prov:GISEL MORILLO 07/07/23 Clotrimazole (Topical) (Clotrimazole Anti-Fungal) 1 % Cre, 1 APPLIC EX BID, #15 MG Apply the medication as directed Prov:GOGO SOSA Q HOT DOG VENDOR 06/25/23 Ibuprofen (Ibuprofen) 400 Mg Tab, 1 TAB PO Q6HPRN, #20 TAB as needed for pain Prov:GOGO SOSA Q HOT DOG VENDOR 06/25/23 Albuterol Sulfate (VENTOLIN MDI) 90 Mcg Ih, 1 PUFF IN Q4HPRN PRN, #1 INH As needed for cough shortness of breath wheezing Prov:GOGO SOSA Q HOT DOG VENDOR 06/12/23 Benzonatate (Benzonatate) 200 Mg Cap, 1 CAP PO TID, #30 CAP As needed for cough Prov:GOGO SOSA Q HOT DOG VENDOR 06/12/23 Cephalexin Monohydrate (Cephalexin) 500 Mg Cap, 1 CAP PO TID for 10 Days, #30 CA P Prov:GOGO SOSA Q HOT DOG VENDOR 06/12/23 Ibuprofen Micronized (MOTRIN TABLET) 600 Mg Tb, 600 MG PO TID PRN for 5 Days, #15 TAB *Black box warning-NSAIDS can increase risk of PA & hypertension, GI irritation, ulceration, bleed, perferation. Do not use post cardiac surgery. Use short duration/lowest effective dose. Prov:TORI SHARMA MD 05/14/23 Docusate Sodium (Colace) 100 Mg Cap, 1 CAP PO DAILY for 10 Days, #10 CAP Prov:TORI SHARMA MD 05/14/23 Ibuprofen (Ibuprofen) 600 Mg Tab, 1 TAB PO TID, #30 TAB Prov:NARENDRA GONZALEZ 05/07/23 Cephalexin Monohydrate (Cephalexin) 500 Mg Cap, 1 CAP PO TID, #21 CAP Prov:NARENDRA GONZALEZ 05/07/23 Levofloxacin Hemihydrate (LEVAQUIN 500 MG) 500 Mg Tab, 1 TAB PO DAILY, #7 TAB Prov:NARESH FIERRO MD 04/20/23 Acetaminophen (Acetaminophen) 500 Mg Tab, 500 MG PO QIDP, #30 TAB 0 Refills Prov:GISEL MORILLO 04/05/23 Prednisone (Prednisone) 20 Mg Tab, 20 MG PO BID for 5 Days, #10 TAB 0 Refills Prov:GISEL MORILLO 04/05/23 Lidocaine HCl (Mouth-Throat) (Lidocaine HCl Viscous) 2 % Radha, 10 ML MT TID, #120 ML Prov:NARENDRA GONZALEZ 03/11/23 Ondansetron Odt 4MG Tab (ZOFRAN PO) 4 Mg Tb, 1 TAB PO Q8HR, #12 TAB As needed for nausea vomiting ODT TAB-DISSOLVE IN MOUTH, THEN SWALLOW Prov:GOGO SOSA NP 03/08/23 Benzocaine-Menthol (Mouth-Thro (Cepacol Sore Throat) 1 [place], 1 BELEM MT Q4HR, #24 BELEM As needed for sore throat Prov:GOGO SOSA NP 03/08/23 Albuterol Sulfate (VENTOLIN MDI) 90 Mcg Ih, 1 PUFF IN Q4HR, #1 INH As needed for shortness of breath wheezing cough and nasal congestion Prov:GOGO SOSA NP 03/08/23 Benzonatate (Benzonatate) 200 Mg Cap, 1 CAP PO TID, #30 CAP as needed for cough Prov:GOGO SOSA NP 03/08/23 Tramadol Hcl (Tramadol Hcl) 50 Mg Tab, 50 MG PO BID, #20 TAB Prov:NARENDRA GONZALEZ 03/04/23 Ibuprofen (Ibuprofen) 600 Mg Tab, 600 MG PO TIDPRN PRN for 10 Days, #30 TAB 0 Refills Prov:FARHAD JACKMAN NP 01/09/23 Ibuprofen (Ibuprofen) 800 Mg Tab, 1 TAB PO TID, #30 TAB Prov:NARENDRA GONZALEZ 11/04/22 Reported Medications Fluticasone-Salmeterol (Wixela Inhub 500-50 Mcg/Dose) 1 Aer Aer, 1 PUFF INH Q12HR 09/10/22 Sucralfate (CARAFATE SUSP) 1 Gm/10 Ml Ss, 10 ML PO QID 09/10/22 Gabapentin (Neurontin) 400 Mg Cap, 2 CAP PO HS, #90 CAP 1 Refill 09/10/22 Gabapentin (Gabapentin) 400 Mg Cap, 1 CAP PO BID 09/10/22 Trazodone Hcl (Trazodone Hcl) 50 Mg Tab, 1 TAB PO HS 09/10/22 Duloxetine HCl (Duloxetine HCl) 30 Mg Cap, 1 CAP PO BID 09/10/22 Albuterol Sulfate (Albuterol Sulfate Hfa) 108 Mcg/Act Aer, 2 PUFF PO Q4HP 09/10/22 Propranolol HCl (Propranolol Hydrochloride) 10 Mg Tab, 1 TAB PO BID 09/10/22 Lisinopril (Lisinopril) 2.5 Mg Tab, 1 TAB PO DAILY 09/10/22 Linaclotide Base (LINZESS) 290 Mcg Cap, 1 CAP PO QAM 09/10/22 Omeprazole (Eq Omeprazole) 20 Mg Tab, 40 MG PO DAILY 09/10/22 Information Source: Patient Mode of Arrival: Ambulatory Timing: Days Duration: Since onset Prehospital treatment: None Quality: Aching, Cramping, Colicky Vomitus: Watery Stool: Watery Severity: Moderate Recent: None Recent Hx of: None Pain Location: Epigastric Modifying Factors: Nothing Associated sign and symptoms: Nausea, Vomiting, Diarrhea, Abdominal Pain Past Medical History PAST MEDICAL HISTORY: Anxiety, Asthma, High Lipids, HTN, Kidney Stones Surgical History: BTL, Cholecystectomy, , Tubal Ligation INTERVENTIONAL PHYSICIAN History: No Pertinent INTERVENTIONAL PHYSICIAN History Family History Family History: Reviewed,noncontributory to illness, Family hx of DM, Family hx of heart remberto Social History Smoker: Non-Smoker Alcohol: Occasionally Drugs: Denies Drug Use Lives In: Home Constitutional: denies: chills, diaphoresis, fatigue, fever, malaise, sweats, weakness, others EENTM: denies: blurred vision, double vision, ear bleeding, ear discharge, ear drainage, ear pain, ear ringing, eye pain, eye redness, hearing loss, mouth pain, mouth swelling, nasal discharge, nose bleeding, nose congestion, nose pain, photophobia, tearing, throat pain, throat swelling, voice changes, others Respiratory: denies: cough, hemoptysis, orthopnea, SOB at rest, shortness of breath, SOB with excertion, stridor, wheezing, others Cardiovascular: denies: chest pain, dizzy spells, diaphoresis, Dyspnea on exertion, edema, irregular heart beat, left arm pain, lightheadedness, palpitations, PND, syncope, others Gastrointestinal: reports: abdominal pain, diarrhea, nausea, vomiting; denies: abdomen distended, blood streaked bowels, constipated, dysphagia, difficulty swallowing, hematemesis, melena, poor appetite, poor fluid intake, rectal bleeding, rectal pain, others Genitourinary: denies: abnormal vagina bleeding, burning, dyspareunia, dysuria, flank pain, frequency, hematuria, incontinence, pain, , vagina discharge, urgency, others Neurological: denies: dizziness, fainting, headache, left sided numbness, left sided weakness, numbness, paresthesia, pre-existing deficit, right sided numbness, right sided weakness, seizure, speech problems, tingling, tremors, weakness, others Musculoskeletal: denies: back pain, gout, joint pain, joint swelling, muscle pain, muscle stiffness, neck pain, others Integumetry: denies: bruises, change in color, change in hair/nails, dryness, laceration, lesions, lumps, rash, wounds, others Allergic/Immunocompromised: denies: Difficulty Healing, Frequent Infections, Hives, Itching, others Hematologic/Lymphatic: denies: anemia, blood clots, easy bleeding, easy bruising, swollen glands, others Endocrine: denies: excessive hunger, excessive sweating, excessive thirst, excessive urination, flushing, intolerance to cold, intolerance to heat, unexplained weight gain, unexplained weight loss, others Psychiatric: denies: anxiety, bipolar disorder, depression, hopeless, panic disorder, schizophrenia, sleepless, suicidal, others All Other Systems: Reviewed and Negative Physical Exam General Appearance: No Apparent Distress, Normal HEENT: Normal ENT Inspection, PERRL/EOMI Neck: Full Range of Motion, Non-Tender, Normal, Normal Inspection Respiratory: Chest Non-Tender, Lungs Clear, No Accessory Muscle Use, No Respira tory Distress, Normal Breath Sounds Cardiovascular: No Edema, No JVD, No Murmur, No Gallop, Normal Peripheral Pulses, Regular Rate/Rhythm Breast Exam: Deferred Gastrointestinal: Epigastric, No Organomegaly, No Pulsatile Mass, Normal Bowel Sounds, Soft, Tenderness (EPIGASTRIC, NO GUARDING AND REBOUND TENDERNESS. ) Genitalia: Deferred Pelvic: Deferred Rectal: Deferred Extremities: No calf tenderness, Normal capillary refill, Normal inspection, Normal range of motion, Non-tender, No pedal edema Musculoskeletal : Apperance: Normal Neurologic: Alert, assistant loan processor II-XII nml as Tested, No Motor Deficits, Normal Affect, Normal Mood, No Sensory Deficits Cerebellar Function: Normal Reflexes: Normal Skin: Dry, Normal Color, Warm Peripheral Pulses: 2+ carotid (R), 2+ carotid (L) Lymphatic: No Adenopathy Was a procedure done? Was a procedure done?: No GI differential Dx Differential Diagnosis: Gastritis/PUD, Gastroenteritis, Inflammatory BD, UTI, Urolithiasis X-Ray, Labs, Meds, VS Vital Signs Date Time Temp Pulse Resp B/P (MAP) Pulse Ox O2 Delivery O2 Flow Rate FiO2 07/06/24 10:06 95 18 97 Room Air 07/06/24 10:06 98.2 95 18 119/79 (92) 97 98.2 07/06/24 08:00 103 18 126/87 (100) 97 07/06/24 07:42 98.3 109 20 145/91 (109) 100 Lab Test 07/06/24 08:47 07/06/24 08:00 Range/Units White Blood Count 13.2 H 4.4-10.8 10^3/uL Red Blood Count 4.23 4.0-5.20 10^6/uL Hemoglobin 12.4 12.2-16.2 g/dL Hematocrit 38.1 36.0-46.0 % Mean Corpuscular Volume 90.1 80.0-100.0 fL Mean Corpuscular Hemoglobin 29.5 28.0-32.0 pg Mean Corpuscular Hemoglobin Concent 32.7 32.0-36.0 g/dL Red Cell Distribution Width 14.5 H 11.8-14.3 % Platelet Count 310 140-450 10^3/uL Mean Platelet Volume 8.7 6.9-10.8 fL Neutrophils (%) (Auto) 76.4 37.0-80.0 % Lymphocytes (%) (Auto) 15.7 10.0-50.0 % Monocytes (%) (Auto) 6.0 0.0-12.0 % Eosinophils (%) (Auto) 1.4 0.0-7.0 % Basophils (%) (Auto) 0.5 0.0-2.0 % Neutrophils # (Auto) 10.1 H 1.6-8.6 10 ^3/uL Lymphocytes # (Auto) 2.1 0.4-5.4 10 ^3/uL Monocytes # (Auto) 0.8 0-1.3 10 ^3/uL Eosinophils # (Auto) 0.2 0-0.8 10 ^3/uL Basophils # (Auto) 0.1 0-0.2 10 ^3/uL Nucleated Red Blood Cells 0.0 % Sodium Level 135 L 136-145 mmol/L Potassium Level 4.1 3.5-5.1 mmol/L Chloride Level 105 98-107 mmol/L Carbon Dioxide Level 21 20-31 mmol/L Anion Gap 9 5-15 Blood Urea Nitrogen 14 9-23 mg/dL Creatinine 0.81 0.550-1.02 mg/dL Glomerular Filtration Rate Calc 93 >90 mL/min BUN/Creatinine Ratio 17.3 10.0-20.0 Serum Glucose 229 H 74-106 mg/dL Calcium Level 9.5 8.7-10.4 mg/dL Total Bilirubin 0.3 0.2-1.0 mg/dL Aspartate Amino Transferase (AST) 24 13-40 U/L Alanine Aminotransferase (ALT) 25 7-40 U/L Alkaline Phosphatase 127 H 46-116 U/L Total Protein 7.3 5.7-8.2 g/dL Albumin 4.4 3.2-4.8 g/dL Urine Color Yellow Yellow Urine Clarity Turbid H Clear Urine pH 6.0 5.0-9.0 Urine Specific [place] 1.028 1.001-1.035 Urine Protein 1+ H Negative Urine Ketones Negative Negative Urine Blood Trace H Negative /uL Urine Nitrite Negative Negative Urine Bilirubin Negative Negative Urine Urobilinogen Normal Negative mg/dL Urine Leukocyte Esterase Trace Negative /uL Urine RBC 4 0 - 4 /hpf Urine WBC 4 0 - 5 /hpf Urine Squamous Epithelial Cells Mod <5 /hpf Urine Calcium Oxalate Crystals Mod None Seen Urine Bacteria Few H None Seen /hpf Urine Mucus Few None Seen Urine Glucose Normal Normal mg/dL Current Medications Medications (Trade) Dose Ordered Sig/Refugio Route Start Time Stop Time Status Last Admin Ketorolac Tromethamine (Toradol Injection) 60 mg ONCE ONCE IM 07/06/24 09:45 07/06/24 09:46 DC 07/06/24 10:05 Ondansetron HCl (Zofran Po) 4 mg ONCE ONCE PO 07/06/24 10:00 07/06/24 10:01 DC 07/06/24 10:00 CT ABD/PEL: FINDINGS: Lung bases: Lung bases are clear. Liver: Marked hepatic steatosis. Biliary: Cholecystectomy. Spleen: Unremarkable. Pancreas: Grossly unremarkable in its noncontrast enhanced appearance. Adrenal glands: Unremarkable. No mass. Kidneys: No hydronephrosis. No renal or ureteral calculi. Aorta/Vascular: No aneurysm or significant calcification. Retroperitoneum: No mass or lymphadenopathy. Bowel/mesentery: Mildly distended fluid-filled small bowel loops. No focal transition point identified to suggest small bowel obstruction. Appendix is visualized and appears unremarkable. There is liquid stool throughout the colon. Pelvic organs: Uterus is anteverted. Bladder: Bladder is underdistended and not well evaluated. Abdominal wall: No mass or hernia. Bones: No acute fracture or suspicious intraosseous lesion. IMPRESSION: 1. Mildly distended fluid-filled small bowel loops with liquid stool in the colon. Findings may be seen with ileus or enterocolitis in the appropriate clinical setting. No evidence of small-bowel obstruction. 2. Appendix is visualized and appears unremarkable. 3. Marked hepatic steatosis. 4. Additional findings as described above. X-Ray, Labs, Meds, VS Comment - I reviewed the following notes from patient's past medical encounters: 01/21/24 FOR [place] - The following tests were ordered, and results were reviewed by me: CT ABD/PEL, UA, CBC, CMP - Additional information was gathered from interviewing the following independent Historian: NA - I reviewed and agreed with the following test results read by other provider: CT ABD/PEL - I discussed treatments and results with medical personnel. TREATMENT: TORADOL 60MG IM AND ZOFRAN 4MG PO Time of 1ST Reevaluation: 10:33 Reevaluation 1ST: Improved Patient Education/Counseling: Diagnosis, Treatment, Need For Follow Up Family Education/Counseling: Diagnosis, Treatment, No Family Present Medical Screening: No EMC Exist At This Time Departure 1 Departure Time of Disposition: 10:34 Impression: Primary Impression: Acute gastroenteritis Disposition: 01 HOME / SELF CARE / HOMELESS Condition: Stable Additional Instructions: FOLLOW UP WITH YOUR PCP WITHIN 2-3 DAYS. e-Prescriptions Metoclopramide Hcl (Reglan) 10 Mg Tab 10 MG PO BID, #30 TAB Prov: NARENDRA GONZALEZ 07/06/24 Dicyclomine Hcl (BENTYL CAPSULE) 10 Mg Cp 20 MG PO TID, #30 CAP Prov: NARENDRA GONZALEZ 07/06/24 Discharged With: Self, Relative Critical Care Note Critical Care Time?: No Stability Stability form required: No Heart Score Heart Score: Heart Score Response (Comments) Value History N/A 0 EKG N/A 0 Age N/A 0 Risk Factors N/A 0 Troponin N/A 0 Total 0 I personally scribed for NARENDRA GONZALEZ ([email or web address]) on 07/06/24 at 08:01. El ectronically submitted by Patric Garcia ([email or web address]). I personally scribed for NARENDRA GONZALEZ ([email or web address]) on 07/06/24 at 08:02. Elect ronically submitted by Patric Garcia ([email or web address]). I personally scribed for NARENDRA GONZALEZ ([email or web address]) on 07/06/24 at 08:53. Electron ically submitted by Patric Garcia ([email or web address]). I personally scribed for NARENDRA GONZALEZ ([email or web address]) on 07/06/24 at 10:30. Electronically submitted by Patric Garcia ([email or web address]). NARENDRA GONZALEZ Jul 06, 2024 08:01
--- NOTE | 2024-07-06 08:44 | DVH ---
CLINICAL INFORMATION: 43 years old, Female; epigastric pain radiating to the right lower abdomen. TECHNIQUE: Axial CT images of the abdomen and pelvis were obtained without IV contrast. Coronal and sagittal reformatted images were obtained, reviewed, and stored. Evaluation of the parenchymal organs is limited without IV contrast. Evaluation of the bowel and mesentery is limited without oral contra st. All CT scans at this medical facility are performed using dose modulation techniques as appropria te to a performed exam including the following: Automated exposure control was utilized; adjustment o f the MA and/or KV according to patient size; and use of iterative reconstruction technique. CTDIvol = 7.96, 0.07, 0.07 mGy DLP = 399.31 mGy-cm COMPARISON: CT CT AB PEL WO CON-NO ORAL OR IV on DOS: 07/10/23, CT CT AB PEL WO CON-NO ORAL OR IV on DO S: 05/14/23, CT CT AB PEL WO CON-NO ORAL OR IV on DOS: 04/19/23 FINDINGS: Lung bases: Lung bases are clear. Liver: Marked hepatic steatosis. Biliary: Cholecystectomy. Spleen: Unremarkable. Pancreas: Grossly unremarkable in its noncontrast enhanced appearance. Adrenal glands: Unremarkable. No mass. Kidneys: No hydronephrosis. No renal or ureteral calculi. Aorta/Vascular: No aneurysm or significant calcification. Retroperitoneum: No mass or lymphadenopathy. Bowel/mesentery: Mildly distended fluid-filled small bowel loops. No focal transition point identifie d to suggest small bowel obstruction. Appendix is visualized and appears unremarkable. There is liqu id stool throughout the colon. Pelvic organs: Uterus is anteverted. Bladder: Bladder is underdistended and not well evaluated. Abdominal wall: No mass or hernia. Bones: No acute fracture or suspicious intraosseous lesion. IMPRESSION: 1. Mildly distended fluid-filled small bowel loops with liquid stool in the colon. Findings may be s een with ileus or enterocolitis in the appropriate clinical setting. No evidence of small-bowel obstr uction. 2. Appendix is visualized and appears unremarkable. 3. Marked hepatic steatosis. 4. Additional findings as described above.
[2024-07-06 09:41] LABS: Basophils # (auto) 0.1 10 ^3/uL (0-0.2); Basophils % (auto) 0.5 % (0.0-2.0); Eosinophils # (auto) 0.2 10 ^3/uL (0-0.8); Eosinophils % (auto) 1.4 % (0.0-7.0); Hematocrit 38.1 % (36.0-46.0); Hemoglobin 12.4 g/dL (12.2-16.2); Lymphocytes # (auto) 2.1 10 ^3/uL (0.4-5.4); Lymphocytes % (auto) 15.7 % (10.0-50.0); Mean Corpuscular Hemoglobin 29.5 pg (28.0-32.0); Mean Corpuscular Hgb Conc. 32.7 g/dL (32.0-36.0); Mean Corpuscular Volume 90.1 fL (80.0-100.0); Monocytes # (auto) 0.8 10 ^3/uL (0-1.3); Neutrophils # (auto) 10.1 10 ^3/uL (1.6-8.6); Neutrophils % (auto) 76.4 % (37.0-80.0); Platelet Count (auto) 310 10^3/uL (140-450); Red Blood Cells 4.23 10^6/uL (4.0-5.20); Red Cell Distribution Width 14.5 % (11.8-14.3); White Blood Cell 13.2 10^3/uL (4.4-10.8)
[2024-07-06] MEDS: ONDANSETRON ODT 4 MG TAB PO ONE (10:00)
[2024-07-06 10:01] LABS: Alanine Aminotransferase 25 U/L (7-40); Albumin 4.4 g/dL (3.2-4.8); Anion Gap 9 (5-15); Aspartate Aminotransferase 24 U/L (13-40); BUN/Creatinine Ratio 17.3 (10.0-20.0); Bilirubin, Total 0.3 mg/dL (0.2-1.0); Blood Urea Nitrogen 14 mg/dL (9-23); Calcium 9.5 mg/dL (8.7-10.4); Carbon Dioxide 21 mmol/L (20-31); Chloride 105 mmol/L (98-107); Potassium 4.1 mmol/L (3.5-5.1); Total Protein 7.3 g/dL (5.7-8.2)
[2024-07-06 10:02] LABS: Alkaline Phosphatase 127 U/L (46-116); Glucose 229 mg/dL (74-106); Sodium 135 mmol/L (136-145)
[2024-07-06] MEDS: KETOROLAC TROMETH 60MG/2ML VIAL IM ONE (10:05)
[2024-07-06 10:06] VITALS: BP 119/79; PULSE 95; RESP 18; TEMP 98.2; O2SAT 97
[2024-07-06 10:08] LABS: Urine Bacteria FEW /hpf (None Seen); Urine Blood TRACE /uL (Negative); Urine Clarity Turbid (Clear); Urine Color Yellow (Yellow); Urine Mucus FEW (None Seen); Urine Protein, UAD 1+ (Negative); Urine Specific Gravity 1.028 (1.001-1.035); Urine Squamous Epithelial Cell MOD /hpf (<5); Urine Urobilinogen Normal (Negative); Urine WBC 4 /hpf (0 - 5)
[2024-07-06] MEDS ORDERED: METO-281 PO (10:33)
[2024-07-06] MEDS ORDERED: DICY10CA PO (10:33)
== END 2024-07-06 10:39 | disposition home or self-care (01) ==
LOC: ER 07:11
DX: K52.9 Noninfective gastroenteritis and colitis, unspecified (principal); I10 Essential (primary) hypertension; J45.909 Unspecified asthma, uncomplicated; F41.9 Anxiety disorder, unspecified; Z79.1 Long term (current) use of non-steroidal anti-inflammatories (NSAID); Z79.51 Long term (current) use of inhaled steroids; Z79.52 Long term (current) use of systemic steroids; Z79.899 Other long term (current) drug therapy; Z88.8 Allergy status to other drugs, medicaments and biological substances; Z90.49 Acquired absence of other specified parts of digestive tract; Z91.041 Radiographic dye allergy status; Z98.51 Tubal ligation status
CPT/HCPCS: 36415; 74176; 80053; 81001; 85025; 96372; 99285; J1885; Q0162

== ENCOUNTER 2024-09-24 14:57 | Emergency (ER) | payer MEDICAID ==
[~2024-09-24] VITALS: Ht 144.8 cm; Wt 60.4 kg
[~2024-09-24 14:57] MED LIST changes: +DICY10CA PO; +METO-281 PO
--- NOTE | 2024-09-24 15:28 | ED.PDOC ---
GI ASSESSMENT HPI Comments 44-year-old female with past medical history pertinent for DM, hyperlipidemia, presents to ED for right-sided flank pain x3 days, associated with headache, nausea, dizziness. She states that her flank pain is intermittent and is worse with bowel movements. She currently rates her pain as 8/10 in severity. Patient denies any fever, chills, dysuria, diarrhea, chest pain, shortness of breath. She reports taking ibuprofen without relief of symptoms. No alleviating or aggravating factors. Chief Complaint: Flank Pain Time Seen by MD: 15:05 Primary Care Provider: unknown Reviewed Notes: Nurses Notes, Medications, Allergies Allergies: Coded Allergies: Iodine (Verified Allergy, Severe, 11/19/18) Home Meds Active Scripts Tamsulosin Hcl (Tamsulosin Hcl) 0.4 Mg Cap, 1 CAP PO DAILY, #30 CAP 0 Refills Prov:YRN BEASLEY 09/24/24 Ondansetron Odt 4MG Tab (ZOFRAN PO) 4 Mg Tb, 4 MG PO Q8HPRN PRN, #15 TAB ODT TAB-DISSOLVE IN MOUTH, THEN SWALLOW Prov:YRN BEASLEY 09/24/24 Hydrocodone-Acetaminophen (Hydrocodone Bitartrate/AC 5-325 mg) 1 Tab Tab, 1 TAB PO Q6HPRN PRN, #15 TAB Prov:YRN BEASLEY 09/24/24 Metoclopramide Hcl (Reglan) 10 Mg Tab, 10 MG PO BID, #30 TAB Prov:NARENDRA GONZALEZ 07/06/24 Dicyclomine Hcl (BENTYL CAPSULE) 10 Mg Cp, 20 MG PO TID, #30 CAP Prov:NARENDRA GONZALEZ 07/06/24 Ibuprofen (Ibuprofen) 600 Mg Tab, 1 TAB PO TIDP PRN for 30 Days, #90 TAB 0 Refills Prov:FARHAD JACKMAN NP 01/11/24 Lidocaine HCl (Mouth-Throat) (Lidocaine HCl Viscous) 2 % Radha, 5 ML MT TID, #100 ML Prov:NARENDRA GONZALEZ 10/27/23 Azithromycin (ZITHROMAX TABLET) 250 Mg Tb, 250 MG PO DAILY, #6 TAB Prov:NARENDRA GONZALEZ 10/27/23 Nitrofurantoin Monohydrate Mac (Macrobid) 100 Mg Cap, 100 MG PO BID for 7 Days, #14 CAP Prov:TORI SHARMA MD 09/23/23 Azithromycin (Zithromax) 1 Gm Pow, 1 PACK PO ONCE, #1 PACK Prov:BRAULIO GUIDO MD 07/26/23 Ciprofloxacin Hcl (Cipro) 500 Mg Tab, 1 TAB PO BID, #14 TAB Prov:BRAULIO GUIDO MD 07/10/23 Tramadol Hcl (Tramadol Hcl) 50 Mg Tab, 50 MG PO Q8HP PRN for 5 Days, #15 TAB Prov:BRAULIO GUIDO MD 07/10/23 Ondansetron Odt 4MG Tab (ZOFRAN PO) 4 Mg Tb, 4 MG PO Q8HP PRN for 5 Days, #15 TAB ODT TAB-DISSOLVE IN MOUTH, THEN SWALLOW Prov:BRAULIO GUIDO MD 07/10/23 Ibuprofen (Ibuprofen) 800 Mg Tab, 1 TAB PO TID PRN, #30 TAB 0 Refills Prov:GISEL MORILLO 07/07/23 Clotrimazole (Topical) (Clotrimazole Anti-Fungal) 1 % Cre, 1 APPLIC EX BID, #15 MG Apply the medication as directed Prov:GOGO SOSA Q EVENT SALES ASSISTANT 06/25/23 Ibuprofen (Ibuprofen) 400 Mg Tab, 1 TAB PO Q6HPRN, #20 TAB as needed for pain Prov:GOGO SOSA EVENT SALES ASSISTANT 06/25/23 Albuterol Sulfate (VENTOLIN MDI) 90 Mcg Ih, 1 PUFF IN Q4HPRN PRN, #1 INH As needed for cough shortness of breath wheezing Prov:GOGO SOSA Q EVENT SALES ASSISTANT 06/12/23 Benzonatate (Benzonatate) 200 Mg Cap, 1 CAP PO TID, #30 CAP As needed for cough Prov:GOGO SOSA Q EVENT SALES ASSISTANT 06/12/23 Cephalexin Monohydrate (Cephalexin) 500 Mg Cap, 1 CAP PO TID for 10 Days, #30 CAP Prov:GOGO SOSA EVENT SALES ASSISTANT 06/12/23 Ibuprofen Micronized (MOTRIN TABLET) 600 Mg Tb, 600 MG PO TID PRN for 5 Days, #15 TAB *Black box warning-NSAIDS can increase risk of [place] & hypertension, GI irritation, ulceration, bleed, perferation. Do not use post cardiac surgery. Use short duration/lowest effective dose. Prov:TORI SHARMA MD 05/14/23 Docusate Sodium (Colace) 100 Mg Cap, 1 CAP PO DAILY for 10 Days, #10 CAP Prov:TORI SHARMA MD 05/14/23 Ibuprofen (Ibuprofen) 600 Mg Tab, 1 TAB PO TID, #30 TAB Prov:NARENDRA GONZALEZ 05/07/23 Cephalexin Monohydrate (Cephalexin) 500 Mg Cap, 1 CAP PO TID, #21 CAP Prov:NARENDRA GONZALEZ 05/07/23 Levofloxacin Hemihydrate (LEVAQUIN 500 MG) 500 Mg Tab, 1 TAB PO DAILY, #7 TAB Prov:NARESH FIERRO MD 04/20/23 Acetaminophen (Acetaminophen) 500 Mg Tab, 500 MG PO QIDP, #30 TAB 0 Refills Prov:GISEL MORILLO 04/05/23 Prednisone (Prednisone) 20 Mg Tab, 20 MG PO BID for 5 Days, #10 TAB 0 Refills Prov:GISEL MORILLO 04/05/23 Lidocaine HCl (Mouth-Throat) (Lidocaine HCl Viscous) 2 % Radha, 10 ML MT TID, #120 ML Prov:NARENDRA GONZALEZ 03/11/23 Ondansetron Odt 4MG Tab (ZOFRAN PO) 4 Mg Tb, 1 TAB PO Q8HR, #12 TAB As needed for nausea vomiting ODT TAB-DISSOLVE IN MOUTH, THEN SWALLOW Prov:GOGO SOSA Q EVENT SALES ASSISTANT 03/08/23 Benzocaine-Menthol (Mouth-Thro (Cepacol Sore Throat) 1 Belem Belem, 1 BELEM MT Q4HR, #24 BELEM As needed for sore throat Prov:GOGO SOSA EVENT SALES ASSISTANT 03/08/23 Albuterol Sulfate (VENTOLIN MDI) 90 Mcg Ih, 1 PUFF IN Q4HR, #1 INH As needed for shortness of breath wheezing cough and nasal congestion Prov:GOGO SOSA EVENT SALES ASSISTANT 03/08/23 Benzonatate (Benzonatate) 200 Mg Cap, 1 CAP PO TID, #30 CAP as needed for cough Prov:GOGO SOSA Q EVENT SALES ASSISTANT 03/08/23 Tramadol Hcl (Tramadol Hcl) 50 Mg Tab, 50 MG PO BID, #20 TAB Prov:NARENDRA GONZALEZ 03/04/23 Ibuprofen (Ibuprofen) 600 Mg Tab, 600 MG PO TIDPRN PRN for 10 Days, #30 TAB 0 Refills Prov:FARHAD JACKMAN EVENT SALES ASSISTANT 01/09/23 Ibuprofen (Ibuprofen) 800 Mg Tab, 1 TAB PO TID, #30 TAB Prov:NARENDRA GONZALEZ PA 11/04/22 Reported Medications Fluticasone-Salmeterol (Wixela Inhub 500-50 Mcg/Dose) 1 Aer Aer, 1 PUFF INH Q12HR 09/10/22 Sucralfate (CARAFATE SUSP) 1 Gm/10 Ml Ss, 10 ML PO QID 09/10/22 Gabapentin (Neurontin) 400 Mg Cap, 2 CAP PO HS, #90 CAP 1 Refill 09/10/22 Gabapentin (Gabapentin) 400 Mg Cap, 1 CAP PO BID 09/10/22 Trazodone Hcl (Trazodone Hcl) 50 Mg Tab, 1 TAB PO HS 09/10/22 Duloxetine HCl (Duloxetine HCl) 30 Mg Cap, 1 CAP PO BID 09/10/22 Albuterol Sulfate (Albuterol Sulfate Hfa) 108 Mcg/Act Aer, 2 PUFF PO Q4HP 09/10/22 Propranolol HCl (Propranolol Hydrochloride) 10 Mg Tab, 1 TAB PO BID 09/10/22 Lisinopril (Lisinopril) 2.5 Mg Tab, 1 TAB PO DAILY 09/10/22 Linaclotide Base (LINZESS) 290 Mcg Cap, 1 CAP PO QAM 09/10/22 Omeprazole (Eq Omeprazole) 20 Mg Tab, 40 MG PO DAILY 09/10/22 Mode of Arrival: Ambulatory Past Medical History PAST MEDICAL HISTORY: Anxiety, Asthma, High Lipids, HTN, Kidney Stones Surgical History: BTL, Cholecystectomy, , Tubal Ligation BEE PRODUCER History: No Pertinent BEE PRODUCER History Family History Family History: Reviewed,noncontributory to illness, Family hx of DM, Family hx of heart remberto Social History Smoker: Non-Smoker Alcohol: Occasionally Drugs: Denies Drug Use Lives In: Home Constitutional: denies: chills, diaphoresis, fatigue, fever, malaise, sweats, weakness, others EENTM: denies: blurred vision, double vision, ear bleeding, ear discharge, ear drainage, ear pain, ear ringing, eye pain, eye redness, hearing loss, mouth pain, mouth swelling, nasal discharge, nose bleeding, nose congestion, nose pain, photophobia, tearing, throat pain, throat swelling, voice changes, others Respiratory: denies: cough, hemoptysis, orthopnea, SOB at rest, shortness of breath, SOB with excertion, stridor, wheezing, others Cardiovascular: denies: chest pain, dizzy spells, diaphoresis, Dyspnea on exertion, edema, irregular heart beat, left arm pain, lightheadedness, palpitations, PND, syncope, others Gastrointestinal: reports: nausea, vomiting; denies: abdomen distended, abdominal pain, blood streaked bowels, constipated, diarrhea, dysphagia, difficulty swallowing, hematemesis, melena, poor appetite, poor fluid intake, rectal bleeding, rectal pain, others Genitourinary: reports: flank pain; denies: abnormal vagina bleeding, burning, dyspareunia, dysuria, frequency, hematuria, incontinence, pain, , vagina discharge, urgency, others Neurological: reports: dizziness, headache; denies: fainting, left sided numbness, left sided weakness, numbness, paresthesia, pre-existing deficit, right sided numbness, right sided weakness, seizure, speech problems, tingling, tremors, weakness, others Musculoskeletal: denies: back pain, gout, joint pain, joint swelling, muscle pain, muscle stiffness, neck pain, others Integumetry: denies: bruises, change in color, change in hair/nails, dryness, laceration, lesions, lumps, rash, wounds, others Allergic/Immunocompromised: denies: Difficulty Healing, Frequent Infections, Hives, Itching, others Hematologic/Lymphatic: denies: anemia, blood clots, easy bleeding, easy bruising, swollen glands, others Endocrine: denies: excessive hunger, excessive sweating, excessive thirst, excessive urination, flushing, intolerance to cold, intolerance to heat, unexplained weight gain, unexplained weight loss, others Psychiatric: denies: anxiety, bipolar disorder, depression, hopeless, panic disorder, schizophrenia, sleepless, suicidal, others All Other Systems: Reviewed and Negative Physical Exam General Appearance: No Apparent Distress, Normal HEENT: Normal ENT Inspection, Pharynx Normal, TMs Normal Neck: Full Range of Motion, Non-Tender, Normal, Normal Inspection Respiratory: Chest Non-Tender, Lungs Clear, No Accessory Muscle Use, No Respiratory Distress, Normal Breath Sounds Cardiovascular: No Edema, No JVD, No Murmur, No Gallop, Normal Peripheral Pulses, Regular Rate/Rhythm Breast Exam: Deferred Gastrointestinal: No Organomegaly, No Pulsatile Mass, Normal Bowel Sounds, Soft, Tenderness (Right-sided CVA tenderness. No right upper quadrant tenderness. No McBurney's point tenderness.) Genitalia: Deferred Pelvic: Deferred Rectal: Deferred Extremities: No calf tenderness, Normal capillary refill, Normal inspection, Normal range of motion, Non-tender, No pedal edema Musculoskeletal : Apperance: Normal Neurologic: Alert, wood sash and frame carpenter II-XII nml as Tested, No Motor Deficits, Normal Affect, Normal Mood, No Sensory Deficits Cerebellar Function: Normal Reflexes: Normal Skin: Dry, Normal Color, Warm Lymphatic: No Adenopathy Was a procedure done? Was a procedure done?: No GI differential Dx Differential Diagnosis: Appendicitis, Gastritis/PUD, Gastroenteritis, UTI, Urolithiasis, Electrolyte Imbalance, Kidney Stone X-Ray, Labs, Meds, VS Vital Signs Date Time Temp Pulse Resp B/P (MAP) Pulse Ox O2 Delivery O2 Flow Rate FiO2 09/24/24 15:05 98.3 100 18 135/99 (111) 99 98.3 Lab Test 09/24/24 15:20 09/24/24 15:00 Range/Units White Blood Count 10.9 H 4.4-10.8 10^3/uL Red Blood Count 4.28 4.0-5.20 10^6/uL Hemoglobin 13.1 12.2-16.2 g/dL Hematocrit 39.3 36.0-46.0 % Mean Corpuscular Volume 91.9 80.0-100.0 fL Mean Corpuscular Hemoglobin 30.5 28.0-32.0 pg Mean Corpuscular Hemoglobin Concent 33.2 32.0-36.0 g/dL Red Cell Distribution Width 13.9 11.8-14.3 % Platelet Count 331 140-450 10^3/uL Mean Platelet Volume 8.6 6.9-10.8 fL Neutrophils (%) (Auto) 63.9 37.0-80.0 % Lymphocytes (%) (Auto) 28.5 10.0-50.0 % Monocytes (%) (Auto) 6.1 0.0-12.0 % Eosinophils (%) (Auto) 1.1 0.0-7.0 % Basophils (%) (Auto) 0.4 0.0-2.0 % Neutrophils # (Auto) 7.0 1.6-8.6 10 ^3/uL Lymphocytes # (Auto) 3.1 0.4-5.4 10 ^3/uL Monocytes # (Auto) 0.7 0-1.3 10 ^3/uL Eosinophils # (Auto) 0.1 0-0.8 10 ^3/uL Basophils # (Auto) 0 0-0.2 10 ^3/uL Nucleated Red Blood Cells 0.1 % Sodium Level 138 136-145 mmol/L Potassium Level 4.0 3.5-5.1 mmol/L Chloride Level 105 98-107 mmol/L Carbon Dioxide Level 25 20-31 mmol/L Anion Gap 8 5-15 Blood Urea Nitrogen 13 9-23 mg/dL Creatinine 0.72 0.550-1.02 mg/dL Glomerular Filtration Rate Calc 106 >90 mL/min BUN/Creatinine Ratio 18.1 10.0-20.0 Serum Glucose 109 H 74-106 mg/dL Calcium Level 9.7 8.7-10.4 mg/dL Total Bilirubin 0.4 0.2-1.0 mg/dL Aspartate Amino Transferase (AST) 28 13-40 U/L Alanine Aminotransferase (ALT) 30 7-40 U/L Alkaline Phosphatase 115 46-116 U/L Total Protein 7.2 5.7-8.2 g/dL Albumin 4.6 3.2-4.8 g/dL Urine Color Yellow Yellow Urine Clarity Clear Clear Urine pH 6.0 5.0-9.0 Urine Specific [place] 1.029 1.001-1.035 Urine Protein Trace H Negative Urine Ketones Negative Negative Urine Blood Negative Negative /uL Urine Nitrite Negative Negative Urine Bilirubin Negative Negative Urine Urobilinogen Normal Negative mg/dL Urine Leukocyte Esterase Negative Negative /uL Urine RBC 4 0 - 4 /hpf Urine Microscopic WBC 1 0-5 /HPF Urine Squamous Epithelial Cells Mod <5 /hpf Urine Bacteria Few H None Seen /hpf Urine Mucus Few None Seen Urine Glucose Normal Normal mg/dL Urine Test Negative Negative Current Medications Medications (Trade) Dose Ordered Sig/Refugio Route Start Time Stop Time Status Last Admin Ketorolac Tromethamine (Toradol Injection) 30 mg ONCE ONCE IM 09/24/24 15:30 09/24/24 15:31 DC 09/24/24 16:06 Sodium Chloride 1,000 ml @ 1,000 mls/hr Q1H ONCE IV 09/24/24 15:30 09/24/24 16:29 DC 09/24/24 16:06 X-Ray, Labs, Meds, VS Comment CT Abd/Pelv IMPRESSION: 1. Several sub 5 mm nonobstructive left renal calculi. 2. Hepatic steatosis. 3. 2.8 cm left ovarian cyst. MDM: Patient with history as above presented with flank pain. History obtained from patient. Patient was nontoxic, stable, afebrile, ambulatory, no acute distress. Exam as above. Labs reviewed. CBC showed a leukocytosis of 10.9, otherwise no abnormalities. No left shift. No anemia. CMP did not show any electrolyte abnormalities. Normal liver function. Normal kidney function. Urinalysis was negative for acute infection. Urine test was negative. Independently reviewed imaging. CT abdomen/ pelvis showed nonobstructive left kidney stones. Reviewed external records. All findings were discussed with the patient. Differential diagnosis considered. Overall presentation is consistent with kidney stones. Low suspicion for obstruction, pyelonephritis, appendicitis, sepsis. Patient was treated with Toradol with improvement in symptoms. IV fluids in the ED, however nurses were unable to obtain IV. Patient states that she does not need IV and states that she is able to keep drink fluids PO. Patient was reevaluated and vital signs were reviewed. Consideration was given for admission, but the patient was stable for outpatient management. Patient was prescribed [place] for pain management. Also prescribed Zofran for nausea and tamsulosin for kidney stone expulsion. Disposition: Discussed the need to follow up diagnostics, including incidental findings. Discharged the patient with instructions to obtain outpatient follow up in 1-2 days of today's symptoms and findings, with strict return precautions if patient develops new or worsening symptoms. This medical document was created using the [employer] system. Although this document has been carefully reviewed, there may still be some phonetic and typographical errors, which are due to imperfections of the software program, and do not reflect any compromise in the patient's medical care. Time of 1ST Reevaluation: 16:34 Reevaluation 1ST: Improved Patient Education/Counseling: Diagnosis, Treatment, Prognosis, Need For Follow Up Family Education/Counseling: No Family Present Departure 1 Departure Time of Disposition: 16:34 Impression: Primary Impression: Kidney stones Disposition: HOME / SELF CARE / HOMELESS Condition: Fair e-Prescriptions Tamsulosin Hcl (Tamsulosin Hcl) 0.4 Mg Cap 1 CAP PO DAILY, #30 CAP 0 Refills Prov: YRN BEASLEY 09/24/24 Ondansetron Odt 4MG Tab (ZOFRAN PO) 4 Mg Tb 4 MG PO Q8HPRN PRN, #15 TAB ODT TAB-DISSOLVE IN MOUTH, THEN SWALLOW Prov: YRN BEASLEY 09/24/24 Hydrocodone-Acetaminophen (Hydrocodone Bitartrate/AC 5-325 mg) 1 Tab Tab 1 TAB PO Q6HPRN PRN, #15 TAB Prov: YRN BEASLEY 09/24/24 Critical Care Note Critical Care Time?: No Stability Stability form required: No Heart Score Heart Score: Heart Score Response (Comments) Value History N/A 0 EKG N/A 0 Age N/A 0 Risk Factors N/A 0 Troponin N/A 0 Total 0 YRN BEASLEY Sep 24, 2024 15:27
[2024-09-24 15:35] LABS: Basophils # (auto) 0 10 ^3/uL (0-0.2); Basophils % (auto) 0.4 % (0.0-2.0); Eosinophils # (auto) 0.1 10 ^3/uL (0-0.8); Eosinophils % (auto) 1.1 % (0.0-7.0); Hematocrit 39.3 % (36.0-46.0); Hemoglobin 13.1 g/dL (12.2-16.2); Lymphocytes # (auto) 3.1 10 ^3/uL (0.4-5.4); Lymphocytes % (auto) 28.5 % (10.0-50.0); Mean Corpuscular Hemoglobin 30.5 pg (28.0-32.0); Mean Corpuscular Hgb Conc. 33.2 g/dL (32.0-36.0); Mean Corpuscular Volume 91.9 fL (80.0-100.0); Monocytes # (auto) 0.7 10 ^3/uL (0-1.3); Monocytes % (auto) 6.1 % (0.0-12.0); Neutrophils % (auto) 63.9 % (37.0-80.0); Nucleated Red Blood Cells % 0.1 %; Platelet Count (auto) 331 10^3/uL (140-450); Red Blood Cells 4.28 10^6/uL (4.0-5.20); Red Cell Distribution Width 13.9 % (11.8-14.3); White Blood Cell 10.9 10^3/uL (4.4-10.8)
[2024-09-24 15:46] LABS: Alanine Aminotransferase 30 U/L (7-40); Albumin 4.6 g/dL (3.2-4.8); Alkaline Phosphatase 115 U/L (46-116); Anion Gap 8 (5-15); Aspartate Aminotransferase 28 U/L (13-40); BUN/Creatinine Ratio 18.1 (10.0-20.0); Bilirubin, Total 0.4 mg/dL (0.2-1.0); Blood Urea Nitrogen 13 mg/dL (9-23); Calcium 9.7 mg/dL (8.7-10.4); Carbon Dioxide 25 mmol/L (20-31); Chloride 105 mmol/L (98-107); Sodium 138 mmol/L (136-145); Total Protein 7.2 g/dL (5.7-8.2)
[2024-09-24 15:47] LABS: Glucose 109 mg/dL (74-106)
[2024-09-24 15:50] LABS: Urine Bacteria FEW /hpf (None Seen); Urine Blood Negative /uL (Negative); Urine Clarity Clear (Clear); Urine Color Yellow (Yellow); Urine Mucus FEW (None Seen); Urine Protein, UAD TRACE (Negative); Urine Specific Gravity 1.029 (1.001-1.035); Urine Squamous Epithelial Cell MOD /hpf (<5); Urine Urobilinogen Normal (Negative); Urine WBC 1 /HPF (0-5)
[2024-09-24] MEDS: SODIUM CHLORIDE 0.9% 1,000 ML IV ONE (16:06)
[2024-09-24] MEDS: KETOROLAC TROMETH 30 MG/ML 1ML VIAL IM ONE (16:06)
--- NOTE | 2024-09-24 16:27 | DVH ---
CT ABDOMEN AND PELVIS WITHOUT CONTRAST CLINICAL HISTORY: R/o kidney stone TECHNIQUE: Multiple contiguous axial images of the abdomen and pelvis without intravenous contrast. T he images were reformatted degenerate coronal and sagittal reconstructions. All CT scans at this medical facility are performed using dose modulation techniques as appropriate t o a performed exam including the following:Automated exposure control was utilized; adjustment of the MA and/or KV according to patient size; and use of iterative reconstruction technique. Radiation Dose Information: CT Dose: CTDI volume is 11 mGy. Dose-length product is 6 L1 mGy*cm Comparison: CT CT AB PEL WO CON-NO ORAL OR IV on DOS: 07/06/24, CT CT AB PEL WO CON-NO ORAL OR IV on DO S: 07/10/23 FINDINGS: Evaluation of the abdomen and pelvis is limited without intravenous contrast. There are several 5 mm calculi in the left kidney. There is no right renal calculus. There is no hy dronephrosis. There is no evidence of a ureteral calculus or hydroureter. There is diffuse fatty infiltration of the liver. The gallbladder is surgically absent. The panc reas, adrenal glands, and spleen appear within normal limits. There is no gross evidence of abdominal lymphadenopathy. There is no free fluid or free air. The stomach grossly appears unremarkable. The small and large bowel loops demonstrate normal caliber . The appendix is not readily seen in the right lower quadrant abdomen. There are no secondary signs of acute appendicitis. The abdominal aorta and IVC appear within normal limits. The bladder appears unremarkable for the degree of distention. The uterus appears within normal limit s.. There is a 2.8 cm left ovarian cyst. There is no gross evidence of a pelvic mass. There is no everett e fluid collection. Lung bases are clear. There is no acute osseous abnormality. IMPRESSION: 1. Several sub 5 mm nonobstructive left renal calculi. 2. Hepatic steatosis. 3. 2.8 cm left ovarian cyst. HS:Y
[2024-09-24] MEDS ORDERED: TAMS0.4C39 PO (16:36)
[2024-09-24] MEDS ORDERED: ZOFR4T PO (16:36)
[2024-09-24] MEDS ORDERED: HYDR-4902 PO (16:36)
[2024-09-24 16:50] VITALS: BP 147/93; PULSE 91; RESP 19; TEMP 98; O2SAT 97
== END 2024-09-24 16:56 | disposition home or self-care (01) ==
LOC: ER 14:57
DX: N20.0 Calculus of kidney (principal); F41.9 Anxiety disorder, unspecified; J45.909 Unspecified asthma, uncomplicated; E78.5 Hyperlipidemia, unspecified; I10 Essential (primary) hypertension; Z98.51 Tubal ligation status; Z90.49 Acquired absence of other specified parts of digestive tract; Z88.8 Allergy status to other drugs, medicaments and biological substances; Z91.040 Latex allergy status; Z79.899 Other long term (current) drug therapy; Z79.51 Long term (current) use of inhaled steroids; Z79.1 Long term (current) use of non-steroidal anti-inflammatories (NSAID); Z79.52 Long term (current) use of systemic steroids
CPT/HCPCS: 36415; 74176; 80053; 81001; 81025; 85025; 96360; 96372; 99285; J1885

== ENCOUNTER 2024-11-24 04:46 | Emergency (ER) | payer MEDICAID ==
[~2024-11-24] VITALS: Ht 144.8 cm; Wt 60.8 kg
[~2024-11-24 04:46] MED LIST changes: +HYDR-4902 PO; +TAMS0.4C39 PO
--- NOTE | 2024-11-24 05:07 | ED.PDOC ---
Back pain HPI Time Seen by MD: 05:06 Primary Care Provider: unknown Reviewed Notes: Nurses Notes, Medications, Allergies Allergies: Coded Allergies: Iodine (Verified Allergy, Severe, 11/19/18) Home Meds Active Scripts Tamsulosin Hcl (Tamsulosin Hcl) 0.4 Mg Cap, 1 CAP PO DAILY, #30 CAP 0 Refills Prov:YRN BEASLEY [facility] 09/24/24 Ondansetron Odt 4MG Tab (ZOFRAN PO) 4 Mg Tb, 4 MG PO Q8HPRN PRN, #15 TAB ODT TAB-DISSOLVE IN MOUTH, THEN SWALLOW Prov:YRN BEASLEY [facility] 09/24/24 Hydrocodone-Acetaminophen (Hydrocodone Bitartrate/AC 5-325 mg) 1 Tab Tab, 1 TAB PO Q6HPRN PRN, #15 TAB Prov:YRN BEASLEY [facility] 09/24/24 Metoclopramide Hcl (Reglan) 10 Mg Tab, 10 MG PO BID, #30 TAB Prov:NARENDRA GONZALEZ 07/06/24 Dicyclomine Hcl (BENTYL CAPSULE) 10 Mg Cp, 20 MG PO TID, #30 CAP Prov:NARENDRA GONZALEZ 07/06/24 Ibuprofen (Ibuprofen) 600 Mg Tab, 1 TAB PO TIDP PRN for 30 Days, #90 TAB 0 Refills Prov:FARHAD JACKMAN NP 01/11/24 Lidocaine HCl (Mouth-Throat) (Lidocaine HCl Viscous) 2 % Radha, 5 ML MT TID, #100 ML Prov:NARENDRA GONZALEZ 10/27/23 Azithromycin (ZITHROMAX TABLET) 250 Mg Tb, 250 MG PO DAILY, #6 TAB Prov:NARENDRA GONZALEZ 10/27/23 Nitrofurantoin Monohydrate Mac (Macrobid) 100 Mg Cap, 100 MG PO BID for 7 Days, #14 CAP Prov:TORI SHARMA MD 09/23/23 Azithromycin (Zithromax) 1 Gm Pow, 1 PACK PO ONCE, #1 PACK Prov:BRAULIO GUIDO MD 07/26/23 Ciprofloxacin Hcl (Cipro) 500 Mg Tab, 1 TAB PO BID, #14 TAB Prov:BRAULIO GUIDO MD 07/10/23 Tramadol Hcl (Tramadol Hcl) 50 Mg Tab, 50 MG PO Q8HP PRN for 5 Days, #15 TAB Prov:BRAULIO GUIOD MD 07/10/23 Ondansetron Odt 4MG Tab (ZOFRAN PO) 4 Mg Tb, 4 MG PO Q8HP PRN for 5 Days, #15 TAB ODT TAB-DISSOLVE IN MOUTH, THEN SWALLOW Prov:BRAULIO GUIDO MD 07/10/23 Ibuprofen (Ibuprofen) 800 Mg Tab, 1 TAB PO TID PRN, #30 TAB 0 Refills Prov:GISEL MORILLO 07/07/23 Clotrimazole (Topical) (Clotrimazole Anti-Fungal) 1 % Cre, 1 APPLIC EX BID, #15 MG Apply the medication as directed Prov:GOGO SOSA CRIME SPECIALIST 06/25/23 Ibuprofen (Ibuprofen) 400 Mg Tab, 1 TAB PO Q6HPRN, #20 TAB as needed for pain Prov:GOGO SOSA CRIME SPECIALIST 06/25/23 Albuterol Sulfate (VENTOLIN MDI) 90 Mcg Ih, 1 PUFF IN Q4HPRN PRN, #1 INH As needed for cough shortness of breath wheezing Prov:GOGO SOSA CRIME SPECIALIST 06/12/23 Benzonatate (Benzonatate) 200 Mg Cap, 1 CAP PO TID, #30 CAP As needed for cough Prov:GOGO SOSA CRIME SPECIALIST 06/12/23 Cephalexin Monohydrate (Cephalexin) 500 Mg Cap, 1 CAP PO TID for 10 Days, #30 CAP Prov:GOGO SOSA CRIME SPECIALIST 06/12/23 Ibuprofen Micronized (MOTRIN TABLET) 600 Mg Tb, 600 MG PO TID PRN for 5 Days, #15 TAB *Black box warning-NSAIDS can increase risk of [place] & hypertension, GI irritation, ulceration, bleed, perferation. Do not use post cardiac surgery. Use short duration/lowest effective dose. Prov:TORI SHARMA MD 05/14/23 Docusate Sodium (Colace) 100 Mg Cap, 1 CAP PO DAILY for 10 Days, #10 CAP Prov:TORI SHARMA MD 05/14/23 Ibuprofen (Ibuprofen) 600 Mg Tab, 1 TAB PO TID, #30 TAB Prov:NARENDRA GONZALEZ 05/07/23 Cephalexin Monohydrate (Cephalexin) 500 Mg Cap, 1 CAP PO TID, #21 CAP Prov:NARENDRA GONZALEZ 05/07/23 Levofloxacin Hemihydrate (LEVAQUIN 500 MG) 500 Mg Tab, 1 TAB PO DAILY, #7 TAB Prov:NARESH FIERRO MD 04/20/23 Acetaminophen (Acetaminophen) 500 Mg Tab, 500 MG PO QIDP, #30 TAB 0 Refills Prov:GISEL MORILLO 04/05/23 Prednisone (Prednisone) 20 Mg Tab, 20 MG PO BID for 5 Days, #10 TAB 0 Refills Prov:GISEL MORILLO 04/05/23 Lidocaine HCl (Mouth-Throat) (Lidocaine HCl Viscous) 2 % Radha, 10 ML MT TID, #120 ML Prov:NARENDRA GONZALEZ 03/11/23 Ondansetron Odt 4MG Tab (ZOFRAN PO) 4 Mg Tb, 1 TAB PO Q8HR, #12 TAB As needed for nausea vomiting ODT TAB-DISSOLVE IN MOUTH, THEN SWALLOW Prov:GOGO SOSA CRIME SPECIALIST 03/08/23 Benzocaine-Menthol (Mouth-Thro (Cepacol Sore Throat) 1 Belem Belem, 1 BELEM MT Q4HR, #24 BELEM As needed for sore throat Prov:GOGO SOSA CRIME SPECIALIST 03/08/23 Albuterol Sulfate (VENTOLIN MDI) 90 Mcg Ih, 1 PUFF IN Q4HR, #1 INH As needed for shortness of breath wheezing cough and nasal congestion Prov:GOGO SOSA CRIME SPECIALIST 03/08/23 Benzonatate (Benzonatate) 200 Mg Cap, 1 CAP PO TID, #30 CAP as needed for cough Prov:GOGO SOSA CRIME SPECIALIST 03/08/23 Tramadol Hcl (Tramadol Hcl) 50 Mg Tab, 50 MG PO BID, #20 TAB Prov:NARENDRA GONZALEZ 03/04/23 Ibuprofen (Ibuprofen) 600 Mg Tab, 600 MG PO TIDPRN PRN for 10 Days, #30 TAB 0 Refills Prov:FARHAD JACKMAN NP 01/09/23 Ibuprofen (Ibuprofen) 800 Mg Tab, 1 TAB PO TID, #30 TAB Prov:NARENDRA GONZALEZ 11/04/22 Reported Medications Fluticasone-Salmeterol (Wixela Inhub 500-50 Mcg/Dose) 1 Aer Aer, 1 PUFF INH Q12HR 09/10/22 Sucralfate (CARAFATE SUSP) 1 Gm/10 Ml Ss, 10 ML PO QID 09/10/22 Gabapentin (Neurontin) 400 Mg Cap, 2 CAP PO HS, #90 CAP 1 Refill 09/10/22 Gabapentin (Gabapentin) 400 Mg Cap, 1 CAP PO BID 09/10/22 Trazodone Hcl (Trazodone Hcl) 50 Mg Tab, 1 TAB PO HS 09/10/22 Duloxetine HCl (Duloxetine HCl) 30 Mg Cap, 1 CAP PO BID 09/10/22 Albuterol Sulfate (Albuterol Sulfate Hfa) 108 Mcg/Act Aer, 2 PUFF PO Q4HP 09/10/22 Propranolol HCl (Propranolol Hydrochloride) 10 Mg Tab, 1 TAB PO BID 09/10/22 Lisinopril (Lisinopril) 2.5 Mg Tab, 1 TAB PO DAILY 09/10/22 Linaclotide Base (LINZESS) 290 Mcg Cap, 1 CAP PO QAM 09/10/22 Omeprazole (Eq Omeprazole) 20 Mg Tab, 40 MG PO DAILY 09/10/22 Past Medical History PAST MEDICAL HISTORY: Anxiety, Asthma, High Lipids, HTN, Kidney Stones Surgical History: BTL, Cholecystectomy, , Tubal Ligation 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 Was a procedure done?: No Back Pain Differential Dx Differential Diagnosis: Fracture, Musculoskeletal Pain, Strain Other Differential Diagnosis TMJ Time of 1ST Reevaluation: 05:07 Reevaluation 1ST: Unchanged Patient Education/Counseling: Diagnosis, Treatment, Prognosis, Need For Follow Up Family Education/Counseling: Diagnosis, Treatment, Prognosis, Need For Follow Up Departure 1 Departure Disposition: 01 HOME / SELF CARE / HOMELESS Condition: Stable Discharged With: Spouse Critical Care Note Critical Care Time?: No Stability Stability form required: MAMTA Ram November 24, 2024 05:07
--- NOTE | 2024-11-24 05:50 | ED.PDOC ---
Back pain HPI HPI Comments This is a 44-year-old female presents to the ED chief complaint right-sided jaw pain x4 days. She states pain came on sudden reports no known injury she states pain starts in the right lower jaw right lateral neck and radiates upper right side of her face to the right side of her head. Denies dental pain, fever, chills, nausea, vomiting, diarrhea, chest pain, slurred speech, numbness or weakness. Time Seen by MD: 05:06 Primary Care Provider: unknown Reviewed Notes: Medications, Allergies Allergies: Coded Allergies: Iodine (Verified Allergy, Severe, 11/19/18) Home Meds Active Scripts Tamsulosin Hcl (Tamsulosin Hcl) 0.4 Mg Cap, 1 CAP PO DAILY, #30 CAP 0 Refills Prov:YRN BEASLEY 09/24/24 Ondansetron Odt 4MG Tab (ZOFRAN PO) 4 Mg Tb, 4 MG PO Q8HPRN PRN, #15 TAB ODT TAB-DISSOLVE IN MOUTH, THEN SWALLOW Prov:YRN BEASLEY 09/24/24 Hydrocodone-Acetaminophen (Hydrocodone Bitartrate/AC 5-325 mg) 1 Tab Tab, 1 TAB PO Q6HPRN PRN, #15 TAB Prov:YRN BEASLEY 09/24/24 Metoclopramide Hcl (Reglan) 10 Mg Tab, 10 MG PO BID, #30 TAB Prov:NARENDRA GONZALEZ 07/06/24 Dicyclomine Hcl (BENTYL CAPSULE) 10 Mg Cp, 20 MG PO TID, #30 CAP Prov:NARENDRA GONZALEZ 07/06/24 Ibuprofen (Ibuprofen) 600 Mg Tab, 1 TAB PO TIDP PRN for 30 Days, #90 TAB 0 Refills Prov:FARHAD JACKMAN NP 01/11/24 Lidocaine HCl (Mouth-Throat) (Lidocaine HCl Viscous) 2 % Radha, 5 ML MT TID, #100 ML Prov:NARENDRA GONZALEZ 10/27/23 Azithromycin (ZITHROMAX TABLET) 250 Mg Tb, 250 MG PO DAILY, #6 TAB Prov:NARENDRA GONZALEZ 10/27/23 Nitrofurantoin Monohydrate Mac (Macrobid) 100 Mg Cap, 100 MG PO BID for 7 Days, #14 CAP Prov:TORI SHARMA MD 09/23/23 Azithromycin (Zithromax) 1 Gm Pow, 1 PACK PO ONCE, #1 PACK Prov:BRAULIO GUIDO MD 07/26/23 Ciprofloxacin Hcl (Cipro) 500 Mg Tab, 1 TAB PO BID, #14 TAB Prov:BRAULIO GUIDO MD 07/10/23 Tramadol Hcl (Tramadol Hcl) 50 Mg Tab, 50 MG PO Q8HP PRN for 5 Days, #15 TAB Prov:BRAULIO GUIDO MD 07/10/23 Ondansetron Odt 4MG Tab (ZOFRAN PO) 4 Mg Tb, 4 MG PO Q8HP PRN for 5 Days, #15 TAB ODT TAB-DISSOLVE IN MOUTH, THEN SWALLOW Prov:BRAULIO GUIDO MD 07/10/23 Ibuprofen (Ibuprofen) 800 Mg Tab, 1 TAB PO TID PRN, #30 TAB 0 Refills Prov:GISEL MORILLO 07/07/23 Clotrimazole (Topical) (Clotrimazole Anti-Fungal) 1 % Cre, 1 APPLIC EX BID, #15 MG Apply the medication as directed Prov:GOGO SOSA WATER FABRICATOR OPERATOR 06/25/23 Ibuprofen (Ibuprofen) 400 Mg Tab, 1 TAB PO Q6HPRN, #20 TAB as needed for pain Prov:GOGO SOSA WATER FABRICATOR OPERATOR 06/25/23 Albuterol Sulfate (VENTOLIN MDI) 90 Mcg Ih, 1 PUFF IN Q4HPRN PRN, #1 INH As needed for cough shortness of breath wheezing Prov:GOGO SOSA WATER FABRICATOR OPERATOR 06/12/23 Benzonatate (Benzonatate) 200 Mg Cap, 1 CAP PO TID, #30 CAP As needed for cough Prov:GOGO SOSA WATER FABRICATOR OPERATOR 06/12/23 Cephalexin Monohydrate (Cephalexin) 500 Mg Cap, 1 CAP PO TID for 10 Days, #30 CAP Prov:GOGO SOSA WATER FABRICATOR OPERATOR 06/12/23 Ibuprofen Micronized (MOTRIN TABLET) 600 Mg Tb, 600 MG PO TID PRN for 5 Days, #15 TAB *Black box warning-NSAIDS can increase risk of NV & hypertension, GI irritation, ulceration, bleed, perferation. Do not use post cardiac surgery. Use short duration/lowest effective dose. Prov:TORI SHARMA MD 05/14/23 Docusate Sodium (Colace) 100 Mg Cap, 1 CAP PO DAILY for 10 Days, #10 CAP Prov:TORI SHARMA MD 05/14/23 Ibuprofen (Ibuprofen) 600 Mg Tab, 1 TAB PO TID, #30 TAB Prov:NARENDRA GONZALEZ 05/07/23 Cephalexin Monohydrate (Cephalexin) 500 Mg Cap, 1 CAP PO TID, #21 CAP Prov:NARENDRA GONZALEZ 05/07/23 Levofloxacin Hemihydrate (LEVAQUIN 500 MG) 500 Mg Tab, 1 TAB PO DAILY, #7 TAB Prov:NARESH FIERRO MD 04/20/23 Acetaminophen (Acetaminophen) 500 Mg Tab, 500 MG PO QIDP, #30 TAB 0 Refills Prov:GISEL MORILLO 04/05/23 Prednisone (Prednisone) 20 Mg Tab, 20 MG PO BID for 5 Days, #10 TAB 0 Refills Prov:GISEL MORILLO 04/05/23 Lidocaine HCl (Mouth-Throat) (Lidocaine HCl Viscous) 2 % Radha, 10 ML MT TID, #120 ML Prov:NARENDRA GONZALEZ 03/11/23 Ondansetron Odt 4MG Tab (ZOFRAN PO) 4 Mg Tb, 1 TAB PO Q8HR, #12 TAB As needed for nausea vomiting ODT TAB-DISSOLVE IN MOUTH, THEN SWALLOW Prov:GOGO SOSA NP 03/08/23 Benzocaine-Menthol (Mouth-Thro (Cepacol Sore Throat) 1 [place], 1 BELEM MT Q4HR, #24 BELEM As needed for sore throat Prov:GOGO SOSA NP 03/08/23 Albuterol Sulfate (VENTOLIN MDI) 90 Mcg Ih, 1 PUFF IN Q4HR, #1 INH As needed for shortness of breath wheezing cough and nasal congestion Prov:GOGO SOSA NP 03/08/23 Benzonatate (Benzonatate) 200 Mg Cap, 1 CAP PO TID, #30 CAP as needed for cough Prov:GOGO SOSA NP 03/08/23 Tramadol Hcl (Tramadol Hcl) 50 Mg Tab, 50 MG PO BID, #20 TAB Prov:NARENDRA GONZALEZ 03/04/23 Ibuprofen (Ibuprofen) 600 Mg Tab, 600 MG PO TIDPRN PRN for 10 Days, #30 TAB 0 Refills Prov:FARHAD JACKMAN Coy WATER FABRICATOR OPERATOR 01/09/23 Ibuprofen (Ibuprofen) 800 Mg Tab, 1 TAB PO TID, #30 TAB Prov:NARENDRA GONZALEZ PA 11/04/22 Reported Medications Fluticasone-Salmeterol (Wixela Inhub 500-50 Mcg/Dose) 1 Aer Aer, 1 PUFF INH Q12HR 09/10/22 Sucralfate (CARAFATE SUSP) 1 Gm/10 Ml Ss, 10 ML PO QID 09/10/22 Gabapentin (Neurontin) 400 Mg Cap, 2 CAP PO HS, #90 CAP 1 Refill 09/10/22 Gabapentin (Gabapentin) 400 Mg Cap, 1 CAP PO BID 09/10/22 Trazodone Hcl (Trazodone Hcl) 50 Mg Tab, 1 TAB PO HS 09/10/22 Duloxetine HCl (Duloxetine HCl) 30 Mg Cap, 1 CAP PO BID 09/10/22 Albuterol Sulfate (Albuterol Sulfate Hfa) 108 Mcg/Act Aer, 2 PUFF PO Q4HP 09/10/22 Propranolol HCl (Propranolol Hydrochloride) 10 Mg Tab, 1 TAB PO BID 09/10/22 Lisinopril (Lisinopril) 2.5 Mg Tab, 1 TAB PO DAILY 09/10/22 Linaclotide Base (LINZESS) 290 Mcg Cap, 1 CAP PO QAM 09/10/22 Omeprazole (Eq Omeprazole) 20 Mg Tab, 40 MG PO DAILY 09/10/22 Information Source: Patient Past Medical History PAST MEDICAL HISTORY: Anxiety, Asthma, High Lipids, HTN, Kidney Stones Surgical History: BTL, Cholecystectomy, , Tubal Ligation BUNDLE PERSON History: No Pertinent BUNDLE PERSON History Family History Family History: Reviewed,noncontributory to illness, Family hx of DM, Family hx of heart remberto Social History Smoker: Non-Smoker Alcohol: Occasionally Drugs: Denies Drug Use Lives In: Home Constitutional: denies: chills, diaphoresis, fatigue, fever, malaise, sweats, weakness, others EENTM: denies: blurred vision, double vision, ear bleeding, ear discharge, ear drainage, ear pain, ear ringing, eye pain, eye redness, hearing loss, mouth pain, mouth swelling, nasal discharge, nose bleeding, nose congestion, nose pain, photophobia, tearing, throat pain, throat swelling, voice changes, others Respiratory: denies: cough, hemoptysis, orthopnea, SOB at rest, shortness of breath, SOB with excertion, stridor, wheezing, others Cardiovascular: denies: chest pain, dizzy spells, diaphoresis, Dyspnea on exertion, edema, irregular heart beat, left arm pain, lightheadedness, palpitations, PND, syncope, others Gastrointestinal: denies: abdomen distended, abdominal pain, blood streaked bowels, constipated, diarrhea, dysphagia, difficulty swallowing, hematemesis, melena, nausea, poor appetite, poor fluid intake, rectal bleeding, rectal pain, vomiting, others Genitourinary: denies: abnormal vagina bleeding, burning, dyspareunia, dysuria, flank pain, frequency, hematuria, incontinence, pain, , vagina discharge, urgency, others Neurological: denies: dizziness, fainting, headache, left sided numbness, left sided weakness, numbness, paresthesia, pre-existing deficit, right sided numbness, right sided weakness, seizure, speech problems, tingling, tremors, weakness, others Musculoskeletal: reports: others (Right jaw pain); denies: back pain, gout, joint pain, joint swelling, muscle pain, muscle stiffness, neck pain Integumetry: denies: bruises, change in color, change in hair/nails, dryness, laceration, lesions, lumps, rash, wounds, others Allergic/Immunocompromised: denies: Difficulty Healing, Frequent Infections, Hives, Itching, others Hematologic/Lymphatic: denies: anemia, blood clots, easy bleeding, easy bruising, swollen glands, others Endocrine: denies: excessive hunger, excessive sweating, excessive thirst, excessive urination, flushing, intolerance to cold, intolerance to heat, unexplained weight gain, unexplained weight loss, others Psychiatric: denies: anxiety, bipolar disorder, depression, hopeless, panic disorder, schizophrenia, sleepless, suicidal, others Physical Exam General Appearance: No Apparent Distress, Normal HEENT: Head (Tenderness palpated over right lower jawline), Normal ENT Inspection, Pharynx Normal, TMs Normal Neck: Full Range of Motion, Non-Tender, Normal, Normal Inspection Respiratory: Chest Non-Tender, Lungs Clear, No Accessory Muscle Use, No Respiratory Distress, Normal Breath Sounds Cardiovascular: No Edema, No JVD, No Murmur, No Gallop, Normal Peripheral Pulses, Regular Rate/Rhythm Breast Exam: Deferred Gastrointestinal: No Organomegaly, Non Tender, No Pulsatile Mass, Normal Bowel Sounds, Soft Genitalia: Deferred Pelvic: Deferred Rectal: Deferred Extremities: Normal capillary refill, Normal inspection, Normal range of motion, Non-tender, No pedal edema Musculoskeletal : Apperance: Normal Neurologic: Alert, No Motor Deficits, Normal Affect, Normal Mood, No Sensory D eficits Cerebellar Function: Normal Reflexes: Normal Skin: Dry, Normal Color, Warm Lymphatic: No Adenopathy Was a procedure done? Was a procedure done?: No Back Pain Differential Dx Differential Diagnosis: Fracture, Musculoskeletal Pain, Strain Time of 1ST Reevaluation: 05:07 Reevaluation 1ST: Unchanged Departure 1 Departure Time of Disposition: 05:07 Disposition: 01 HOME / SELF CARE / HOMELESS Condition: Stable Discharged With: Spouse Critical Care Note Critical Care Time?: No Stability Stability form required: MAMTA Ram November 24, 2024 05:50
--- NOTE | 2024-11-24 06:24 | DVH ---
HISTORY: Right-sided jaw pain TECHNIQUE: Nonenhanced axial images through the facial bones with coronal and sagittal MPR. Radiation Dose Information: CT Dose: CTDI volume is 65 mGy. Dose-length product is 1310 mGy*cm COMPARISON: None FINDINGS: Mandible: Unremarkable Maxilla: Unremarkable Zygomatic arches: Unremarkable Nasal bone: Unremarkable Orbits: Unremarkable Sinuses: Clear Facial swelling: None IMPRESSION: No acute findings. Radiation optimization: All CT scans at this facility use at least one of these dose optimization temo hniques: automated exposure control mA and/or kV adjustment per patient size (includes targeted exam s where dose is matched to clinical indication) or iterative reconstruction.
[2024-11-24] MEDS: KETOROLAC TROMETH 60MG/2ML VIAL IM ONE (08:09)
[2024-11-24] MEDS: HYDROcodone-ACET 5/325MG TAB PO ONE (08:09)
[2024-11-24 08:14] VITALS: BP 114/96; PULSE 94; RESP 16; TEMP 98.6; O2SAT 99
== END 2024-11-24 08:31 | disposition home or self-care (01) ==
LOC: ER 04:46
DX: R68.84 Jaw pain (principal); I10 Essential (primary) hypertension; F41.9 Anxiety disorder, unspecified; J45.909 Unspecified asthma, uncomplicated; E78.5 Hyperlipidemia, unspecified; Z90.49 Acquired absence of other specified parts of digestive tract; Z98.890 Other specified postprocedural states; Z91.041 Radiographic dye allergy status; Z79.1 Long term (current) use of non-steroidal anti-inflammatories (NSAID); Z79.51 Long term (current) use of inhaled steroids; Z79.52 Long term (current) use of systemic steroids; Z79.899 Other long term (current) drug therapy
CPT/HCPCS: 70486; 96372; 99285; J1885

== ENCOUNTER 2024-12-18 03:01 | Emergency (ER) | payer MEDICAID ==
[~2024-12-18] VITALS: Ht 144.8 cm; Wt 61.4 kg
[2024-12-18 03:18] VITALS: TEMP 97.9; O2SAT 97
--- NOTE | 2024-12-18 03:25 | ED.PDOC ---
GI ASSESSMENT HPI Comments 44 year old female presents to the ED with a chief complaint of abdominal pain onset 2 days. Patient has been experiencing constant, sharp, abdominal pain around epigastric for the past 2 days, pain worsen this morning. Upon ED arrival, patient began experiencing nausea/vomiting. Patient is currently taking Ozempic. PMHx HTN, HLD, kidney stones, anxiety, asthma. Denies chest pain, shortness of breath, diarrhea, constipation, fever, chills, hematemesis, dysuria, hematuria, cough, congestion. No other symptoms or modifying factors present at this time. Chief Complaint: Abdominal Pain Time Seen by MD: 03:20 Primary Care Provider: unknown Reviewed Notes: Medications, Allergies Allergies: Coded Allergies: Iodine (Verified Allergy, Severe, 11/19/18) Home Meds Active Scripts Sulfamethoxazole W/Trimethopri (Bactrim Ds Tablet) 1 Tab Tb, 1 TAB PO BID for 7 Days, #14 TAB Prov:ANIVAL NORRIS MD 12/18/24 Tamsulosin Hcl (Tamsulosin Hcl) 0.4 Mg Cap, 1 CAP PO DAILY, #30 CAP 0 Refills Prov:YRN BEASLEY 09/24/24 Ondansetron Odt 4MG Tab (ZOFRAN PO) 4 Mg Tb, 4 MG PO Q8HPRN PRN, #15 TAB ODT TAB-DISSOLVE IN MOUTH, THEN SWALLOW Prov:YRN BEASLEY 09/24/24 Hydrocodone-Acetaminophen (Hydrocodone Bitartrate/AC 5-325 mg) 1 Tab Tab, 1 TAB PO Q6HPRN PRN, #15 TAB Prov:YRN BEASLEY 09/24/24 Metoclopramide Hcl (Reglan) 10 Mg Tab, 10 MG PO BID, #30 TAB Prov:NARENDRA GONZALEZ 07/06/24 Dicyclomine Hcl (BENTYL CAPSULE) 10 Mg Cp, 20 MG PO TID, #30 CAP Prov:NARENDRA GONZALEZ 07/06/24 Ibuprofen (Ibuprofen) 600 Mg Tab, 1 TAB PO TIDP PRN for 30 Days, #90 TAB 0 Refills Prov:FARHAD JACKMAN NP 01/11/24 Lidocaine HCl (Mouth-Throat) (Lidocaine HCl Viscous) 2 % Radha, 5 ML MT TID, #100 ML Prov:NARENDRA GONZALEZ 10/27/23 Azithromycin (ZITHROMAX TABLET) 250 Mg Tb, 250 MG PO DAILY, #6 TAB Prov:NARENDRA GONZALEZ 10/27/23 Nitrofurantoin Monohydrate Mac (Macrobid) 100 Mg Cap, 100 MG PO BID for 7 Days, #14 CAP Prov:TORI SHARMA MD 09/23/23 Azithromycin (Zithromax) 1 Gm Pow, 1 PACK PO ONCE, #1 PACK Prov:BRAULIO GUIDO MD 07/26/23 Ciprofloxacin Hcl (Cipro) 500 Mg Tab, 1 TAB PO BID, #14 TAB Prov:BRAULIO GUIDO MD 07/10/23 Tramadol Hcl (Tramadol Hcl) 50 Mg Tab, 50 MG PO Q8HP PRN for 5 Days, #15 TAB Prov:BRAULIO GUIDO MD 07/10/23 Ondansetron Odt 4MG Tab (ZOFRAN PO) 4 Mg Tb, 4 MG PO Q8HP PRN for 5 Days, #15 TAB ODT TAB-DISSOLVE IN MOUTH, THEN SWALLOW Prov:BRAULIO GUIDO MD 07/10/23 Ibuprofen (Ibuprofen) 800 Mg Tab, 1 TAB PO TID PRN, #30 TAB 0 Refills Prov:GISEL MORILLO 07/07/23 Clotrimazole (Topical) (Clotrimazole Anti-Fungal) 1 % Cre, 1 APPLIC EX BID, #15 MG Apply the medication as directed Prov:GOGO SOSA MANAGER [employer] 06/25/23 Ibuprofen (Ibuprofen) 400 Mg Tab, 1 TAB PO Q6HPRN, #20 TAB as needed for pain Prov:GOGO S[employer]A MANAGER [employer] 06/25/23 Albuterol Sulfate (VENTOLIN MDI) 90 Mcg Ih, 1 PUFF IN Q4HPRN PRN, #1 INH As needed for cough shortness of breath wheezing Prov:GOGO SOSA MANAGER [employer] 06/12/23 Benzonatate (Benzonatate) 200 Mg Cap, 1 CAP PO TID, #30 CAP As needed for cough Prov:GOGO SOSA MANAGER [employer] 06/12/23 Cephalexin Monohydrate (Cephalexin) 500 Mg Cap, 1 CAP PO TID for 10 Days, #30 C AP Prov:GOGO S[employer] MANAGER [employer] 06/12/23 Ibuprofen Micronized (MOTRIN TABLET) 600 Mg Tb, 600 MG PO TID PRN for 5 Days, #15 TAB *Black box warning-NSAIDS can increase risk of DE & hypertension, GI irritation, ulceration, bleed, perferation. Do not use post cardiac surgery. Use short duration/lowest effective dose. Prov:TORI SHARMA MD 05/14/23 Docusate Sodium (Colace) 100 Mg Cap, 1 CAP PO DAILY for 10 Days, #10 CAP Prov:TORI SHARMA MD 05/14/23 Ibuprofen (Ibuprofen) 600 Mg Tab, 1 TAB PO TID, #30 TAB Prov:NARENDRA GONZALEZ 05/07/23 Cephalexin Monohydrate (Cephalexin) 500 Mg Cap, 1 CAP PO TID, #21 CAP Prov:NARENDRA GONZALEZ 05/07/23 Levofloxacin Hemihydrate (LEVAQUIN 500 MG) 500 Mg Tab, 1 TAB PO DAILY, #7 TAB Prov:NARESH FIERRO MD 04/20/23 Acetaminophen (Acetaminophen) 500 Mg Tab, 500 MG PO QIDP, #30 TAB 0 Refills Prov:GISEL MORILLO 04/05/23 Prednisone (Prednisone) 20 Mg Tab, 20 MG PO BID for 5 Days, #10 TAB 0 Refills Prov:GISEL MORILLO 04/05/23 Lidocaine HCl (Mouth-Throat) (Lidocaine HCl Viscous) 2 % Radha, 10 ML MT TID, #120 ML Prov:NAERNDRA GONZALEZ 03/11/23 Ondansetron Odt 4MG Tab (ZOFRAN PO) 4 Mg Tb, 1 TAB PO Q8HR, #12 TAB As needed for nausea vomiting ODT TAB-DISSOLVE IN MOUTH, THEN SWALLOW Prov:GOGO SOSA Q MANAGER ARE[employer] 03/08/23 Benzocaine-Menthol (Mouth-Thro (Cepacol Sore Throat) 1 Belem Belem, 1 BELEM MT Q4HR, #24 BELEM As needed for sore throat Prov:GOGO SOSA Q MANAGER [employer] 03/08/23 Albuterol Sulfate (VENTOLIN MDI) 90 Mcg Ih, 1 PUFF IN Q4HR, #1 INH As needed for shortness of breath wheezing cough and nasal congestion Prov:GOGO SOSA Q MANAGER [employer] 03/08/23 Benzonatate (Benzonatate) 200 Mg Cap, 1 CAP PO TID, #30 CAP as needed for cough Prov:GOGO SOSA Q MANAGER [employer] 03/08/23 Tramadol Hcl (Tramadol Hcl) 50 Mg Tab, 50 MG PO BID, #20 TAB Prov:NARENDRA GONZALEZ 03/04/23 Ibuprofen (Ibuprofen) 600 Mg Tab, 600 MG PO TIDPRN PRN for 10 Days, #30 TAB 0 Refills Prov:FARHAD JACKMAN MANAGER [employer] 01/09/23 Ibuprofen (Ibuprofen) 800 Mg Tab, 1 TAB PO TID, #30 TAB Prov:NARENDRA GONZALEZ 11/04/22 Reported Medications Fluticasone-Salmeterol (Wixela Inhub 500-50 Mcg/Dose) 1 Aer Aer, 1 PUFF INH Q12HR 09/10/22 Sucralfate (CARAFATE SUSP) 1 Gm/10 Ml Ss, 10 ML PO QID 09/10/22 Gabapentin (Neurontin) 400 Mg Cap, 2 CAP PO HS, #90 CAP 1 Refill 09/10/22 Gabapentin (Gabapentin) 400 Mg Cap, 1 CAP PO BID 09/10/22 Trazodone Hcl (Trazodone Hcl) 50 Mg Tab, 1 TAB PO HS 09/10/22 Duloxetine HCl (Duloxetine HCl) 30 Mg Cap, 1 CAP PO BID 09/10/22 Albuterol Sulfate (Albuterol Sulfate Hfa) 108 Mcg/Act Aer, 2 PUFF PO Q4HP 09/10/22 Propranolol HCl (Propranolol Hydrochloride) 10 Mg Tab, 1 TAB PO BID 09/10/22 Lisinopril (Lisinopril) 2.5 Mg Tab, 1 TAB PO DAILY 09/10/22 Linaclotide Base (LINZESS) 290 Mcg Cap, 1 CAP PO QAM 09/10/22 Omeprazole (Eq Omeprazole) 20 Mg Tab, 40 MG PO DAILY 09/10/22 Information Source: Patient Mode of Arrival: Ambulatory Duration: Since onset Prehospital treatment: None Quality: Sharp Severity: Moderate Recent: None Recent Hx of: None Pain Location: Epigastric Modifying Factors: Nothing Associated sign and symptoms: Nausea, Vomiting, Abdominal Pain Past Medical History PAST MEDICAL HISTORY: Anxiety, Asthma, High Lipids, HTN, Kidney Stones Surgical History: BTL, Cholecystectomy, , Tubal Ligation CHIEF DISPATCHER SERVICE History: No Pertinent CHIEF DISPATCHER SERVICE History Family History Family History: Reviewed,noncontributory to illness, Family hx of DM, Family hx of heart remberto Social History Smoker: Non-Smoker Alcohol: Occasionally Drugs: Denies Drug Use Lives In: Home Constitutional: denies: chills, diaphoresis, fatigue, fever, malaise, sweats, weakness, others EENTM: denies: blurred vision, double vision, ear bleeding, ear discharge, ear drainage, ear pain, ear ringing, eye pain, eye redness, hearing loss, mouth pain, mouth swelling, nasal discharge, nose bleeding, nose congestion, nose pain, photophobia, tearing, throat pain, throat swelling, voice changes, others Respiratory: denies: cough, hemoptysis, orthopnea, SOB at rest, shortness of breath, SOB with excertion, stridor, wheezing, others Cardiovascular: denies: chest pain, dizzy spells, diaphoresis, Dyspnea on exertion, edema, irregular heart beat, left arm pain, lightheadedness, palpitations, PND, syncope, others Gastrointestinal: reports: abdominal pain, nausea, vomiting; denies: abdomen distended, blood streaked bowels, constipated, diarrhea, dysphagia, difficulty swallowing, hematemesis, melena, poor appetite, poor fluid intake, rectal bleeding, rectal pain, others Genitourinary: denies: abnormal vagina bleeding, burning, dyspareunia, dysuria, flank pain, frequency, hematuria, incontinence, pain, , vagina discharge, urgency, others Neurological: denies: dizziness, fainting, headache, left sided numbness, left sided weakness, numbness, paresthesia, pre-existing deficit, right sided numbness, right sided weakness, seizure, speech problems, tingling, tremors, weakness, others Musculoskeletal: denies: back pain, gout, joint pain, joint swelling, muscle pain, muscle stiffness, neck pain, others Integumetry: denies: bruises, change in color, change in hair/nails, dryness, laceration, lesions, lumps, rash, wounds, others Allergic/Immunocompromised: denies: Difficulty Healing, Frequent Infections, Hives, Itching, others Hematologic/Lymphatic: denies: anemia, blood clots, easy bleeding, easy bruising, swollen glands, others Endocrine: denies: excessive hunger, excessive sweating, excessive thirst, excessive urination, flushing, intolerance to cold, intolerance to heat, unexplained weight gain, unexplained weight loss, others Psychiatric: denies: anxiety, bipolar disorder, depression, hopeless, panic disorder, schizophrenia, sleepless, suicidal, others All Other Systems: Reviewed and Negative Physical Exam General Appearance: Normal HEENT: Normal ENT Inspection, Pharynx Normal, TMs Normal Neck: Full Range of Motion, Non-Tender, Normal, Normal Inspection Respiratory: Chest Non-Tender, Lungs Clear, No Accessory Muscle Use, No Respiratory Distress, Normal Breath Sounds Cardiovascular: No Edema, No JVD, No Murmur, No Gallop, Normal Peripheral Pulses, Regular Rate/Rhythm Breast Exam: Deferred Gastrointestinal: No Organomegaly, No Pulsatile Mass, Normal Bowel Sounds Genitalia: Deferred Pelvic: Deferred Rectal: Deferred Extremities: No calf tenderness, Normal capillary refill, Normal inspection, Normal range of motion, Non-tender, No pedal edema Musculoskeletal : Apperance: Normal Neurologic: Alert, docent coordinator II-XII nml as Tested, No Motor Deficits, Normal Affect, Normal Mood, No Sensory Deficits Cerebellar Function: Normal Reflexes: Normal Skin: Dry, Normal Color, Warm Lymphatic: No Adenopathy Was a procedure done? Was a procedure done?: No GI differential Dx Differential Diagnosis: AAA, Appendicitis, Aortic dissection, Bowel Obstruction, Cholangitis, Cholecystitis, Constipation, Diverticular disease, Gastritis/PUD, Gastroenteritis, GI hemorrhage, Kidney Stone, Other X-Ray, Labs, Meds, VS Vital Signs Date Time Temp Pulse Resp B/P (MAP) Pulse Ox O2 Delivery O2 Flow Rate FiO2 12/18/24 05:05 93 16 147/95 12/18/24 04:41 103 20 149/105 12/18/24 03:18 97.9 102 20 122/101 (108) 97 97.9 Lab Test 12/18/24 03:32 12/18/24 03:20 Range/Units White Blood Count 14.0 H 4.4-10.8 10^3/uL Red Blood Count 4.50 4.0-5.20 10^6/uL Hemoglobin 14.0 12.2-16.2 g/dL Hematocrit 41.4 36.0-46.0 % Mean Corpuscular Volume 92.1 80.0-100.0 fL Mean Corpuscular Hemoglobin 31.2 28.0-32.0 pg Mean Corpuscular Hemoglobin Concent 33.9 32.0-36.0 g/dL Red Cell Distribution Width 13.0 11.8-14.3 % Platelet Count 327 140-450 10^3/uL Mean Platelet Volume 8.7 6.9-10.8 fL Neutrophils (%) (Auto) 59.6 37.0-80.0 % Lymphocytes (%) (Auto) 30.5 10.0-50.0 % Monocytes (%) (Auto) 8.3 0.0-12.0 % Eosinophils (%) (Auto) 1.3 0.0-7.0 % Basophils (%) (Auto) 0.3 0.0-2.0 % Neutrophils # (Auto) 8.4 1.6-8.6 10 ^3/uL Lymphocytes # (Auto) 4.3 0.4-5.4 10 ^3/uL Monocytes # (Auto) 1.2 0-1.3 10 ^3/uL Eosinophils # (Auto) 0.2 0-0.8 10 ^3/uL Basophils # (Auto) 0 0-0.2 10 ^3/uL Nucleated Red Blood Cells 0.0 % Sodium Level 137 136-145 mmol/L Potassium Level 4.0 3.5-5.1 mmol/L Chloride Level 103 98-107 mmol/L Carbon Dioxide Level 21 20-31 mmol/L Anion Gap 13 5-15 Blood Urea Nitrogen 10 9-23 mg/dL Creatinine 0.74 0.550-1.02 mg/dL Glomerular Filtration Rate Calc 103 >90 mL/min BUN/Creatinine Ratio 13.5 10.0-20.0 Serum Glucose 152 H 74-106 mg/dL Calcium Level 9.6 8.7-10.4 mg/dL Total Bilirubin 0.3 0.2-1.0 mg/dL Aspartate Amino Transferase (AST) 18 <34 U/L Alanine Aminotransferase (ALT) 18 7-40 U/L Alkaline Phosphatase 94 46-116 U/L Total Protein 7.6 5.7-8.2 g/dL Albumin 4.7 3.2-4.8 g/dL Lipase 44 12-53 U/L Urine Color Light-yellow Yellow Urine Clarity Turbid H Clear Urine pH 6.5 5.0-9.0 Urine Specific Solomon 1.020 1.001-1.035 Urine Protein Negative Negative Urine Ketones Negative Negative Urine Blood Negative Negative /uL Urine Nitrite 1+ H Negative Urine Bilirubin Negative Negative Urine Urobilinogen Normal Negative mg/dL Urine Leukocyte Esterase 1+ Negative /uL Urine RBC 2 0 - 4 /hpf Urine Microscopic WBC 3 0-5 /HPF Urine Squamous Epithelial Cells Few <5 /hpf Urine Bacteria Many H None Seen /hpf Urine Mucus Few None Seen Urine Glucose Normal Normal mg/dL Urine Test Negative Negative Current Medications Medications (Trade) Dose Ordered Sig/Refugio Route Start Time Stop Time Status Last Admin Sodium Chloride 1,000 ml @ 1,000 mls/hr Q1H ONCE IV 12/18/24 03:30 12/18/24 04:29 DC 12/18/24 04:37 Morphine Sulfate 4 mg ONCE ONCE IV 12/18/24 03:30 12/18/24 03:31 DC 12/18/24 04:41 Ondansetron HCl (Zofran) 4 mg ONCE ONCE IV 12/18/24 03:30 12/18/24 03:31 DC 12/18/24 04:40 Famotidine (Pepcid Injection) 20 mg ONCE ONCE IV 12/18/24 03:30 12/18/24 03:31 DC 12/18/24 04:40 Ceftriaxone Sodium 50 ml @ 100 mls/hr ONCE ONCE IV 12/18/24 05:30 12/18/24 05:59 DC 12/18/24 05:36 Time of 1ST Reevaluation: 03:50 Reevaluation 1ST: Unchanged Patient Education/Counseling: Diagnosis, Treatment, Prognosis Family Education/Counseling: No Family Present SEPSIS Sepsis Screen Orders/Vitals/Labs Physician Orders Ct Ab Pel Wo Con-No Oral Or Iv (12/18/24 03:21) Vital Signs Date Time Temp Pulse Resp B/P (MAP) Pulse Ox O2 Delivery O2 Flow Rate FiO2 12/18/24 05:05 93 16 147/95 12/18/24 04:41 103 20 149/105 12/18/24 03:18 97.9 102 20 122/101 (108) 97 97.9 Laboratory Tests Test 12/18/24 03:32 White Blood Count 14.0 10^3/uL (4.4-10.8) H Medications Medications Dose Ordered Sig/Refugio Route Start Time Stop Time Status Last Admin Dose Admin Ceftriaxone Sodium 50 ml @ 100 mls/hr ONCE ONCE IV 12/18/24 05:30 12/18/24 05:59 DC 12/18/24 05:36 Famotidine 20 mg ONCE ONCE IV 12/18/24 03:30 12/18/24 03:31 DC 12/18/24 04:40 Morphine Sulfate 4 mg ONCE ONCE IV 12/18/24 03:30 12/18/24 03:31 DC 12/18/24 04:41 Ondansetron HCl 4 mg ONCE ONCE IV 12/18/24 03:30 12/18/24 03:31 DC 12/18/24 04:40 Sodium Chloride 1,000 ml @ 1,000 mls/hr Q1H ONCE IV 12/18/24 03:30 12/18/24 04:29 DC 12/18/24 04:37 Departure 1 Departure Time of Disposition: 05:00 Impression: Primary Impression: Acute UTI (urinary tract infection) Additional Impression: Abdominal pain Disposition: HOME / SELF CARE / HOMELESS Condition: Stable e-Prescriptions Sulfamethoxazole W/Trimethopri (Bactrim Ds Tablet) 1 Tab Tb 1 TAB PO BID for 7 Days, #14 TAB Prov: ANIVAL NORRIS MD 12/18/24 Discharged With: Self Critical Care Note Critical Care Time?: No Stability Stability form required: No I personally scribed for ANIVAL NORRIS MD ([email or web address]) on 12/18/24 at 03:25. Electronically submitted by Eleni Alanis ([email or web address]). ANIVAL NORRIS MD Dec 18, 2024 03:25
[2024-12-18 03:53] LABS: Basophils # (auto) 0 10 ^3/uL (0-0.2); Basophils % (auto) 0.3 % (0.0-2.0); Eosinophils # (auto) 0.2 10 ^3/uL (0-0.8); Eosinophils % (auto) 1.3 % (0.0-7.0); Hematocrit 41.4 % (36.0-46.0); Lymphocytes # (auto) 4.3 10 ^3/uL (0.4-5.4); Lymphocytes % (auto) 30.5 % (10.0-50.0); Mean Corpuscular Hemoglobin 31.2 pg (28.0-32.0); Mean Corpuscular Hgb Conc. 33.9 g/dL (32.0-36.0); Mean Corpuscular Volume 92.1 fL (80.0-100.0); Monocytes # (auto) 1.2 10 ^3/uL (0-1.3); Monocytes % (auto) 8.3 % (0.0-12.0); Neutrophils # (auto) 8.4 10 ^3/uL (1.6-8.6); Neutrophils % (auto) 59.6 % (37.0-80.0); Platelet Count (auto) 327 10^3/uL (140-450)
[2024-12-18 03:55] LABS: Urine Bacteria MANY /hpf (None Seen); Urine Blood Negative /uL (Negative); Urine Clarity Turbid (Clear); Urine Color Light-Yellow (Yellow); Urine Mucus FEW (None Seen); Urine Protein, UAD Negative (Negative); Urine Squamous Epithelial Cell FEW /hpf (<5); Urine Urobilinogen Normal (Negative); Urine WBC 3 /HPF (0-5); Urine pH 6.5 (5.0-9.0)
[2024-12-18 04:27] LABS: Alanine Aminotransferase 18 U/L (7-40); Albumin 4.7 g/dL (3.2-4.8); Alkaline Phosphatase 94 U/L (46-116); Anion Gap 13 (5-15); Aspartate Aminotransferase 18 U/L (<34); BUN/Creatinine Ratio 13.5 (10.0-20.0); Bilirubin, Total 0.3 mg/dL (0.2-1.0); Blood Urea Nitrogen 10 mg/dL (9-23); Calcium 9.6 mg/dL (8.7-10.4); Carbon Dioxide 21 mmol/L (20-31); Chloride 103 mmol/L (98-107); Glucose 152 mg/dL (74-106); Lipase 44 U/L (12-53); Sodium 137 mmol/L (136-145); Total Protein 7.6 g/dL (5.7-8.2)
[2024-12-18] MEDS: SODIUM CHLORIDE 0.9% 1,000 ML IV ONE (04:37)
[2024-12-18] MEDS: ONDANSETRON HCL 4 MG/2 ML VIAL IV ONE (04:40)
[2024-12-18] MEDS: FAMOTIDINE (10MG/ML) 2ML VL IV ONE (04:40)
[2024-12-18] MEDS: MORPHINE SULFATE 4 MG/ML SYR/VIAL IV ONE (04:41)
[2024-12-18 05:05] VITALS: BP 147/95; PULSE 93; RESP 16
--- NOTE | 2024-12-18 05:11 | DVH ---
EXAM: CT Abdomen and Pelvis Without Intravenous Contrast CLINICAL INDICATION: Pain TECHNIQUE: Axial computed tomography images of the abdomen and pelvis without intravenous contrast. This CT exam was performed using one or more of the following dose reduction techniques: automated exposure control, adjustment of the mA and/or kV according to patient size, and/or use of iterative r econstruction technique. COMPARISON: No relevant prior studies available. FINDINGS: LUNG BASES: Unremarkable. No mass. No consolidation. ABDOMEN: LIVER: Hepatomegaly with fatty infiltration. GALLBLADDER AND BILE DUCTS: Gallbladder is surgically absent. No ductal dilation. PANCREAS: Unremarkable. No ductal dilation. SPLEEN: Unremarkable. No splenomegaly. ADRENALS: Unremarkable. No mass. KIDNEYS AND URETERS: Unremarkable. No stones within either kidney. No hydronephrosis. STOMACH AND BOWEL: Unremarkable. No obstruction. No mucosal thickening. PELVIS: APPENDIX: No findings to suggest acute appendicitis. BLADDER: Unremarkable. No stones. REPRODUCTIVE: Unremarkable as visualized. ABDOMEN and PELVIS: INTRAPERITONEAL SPACE: Unremarkable. No free air. No significant fluid collection. BONES/JOINTS: No acute fracture. No dislocation. SOFT TISSUES: Unremarkable. VASCULATURE: Unremarkable. No abdominal aortic aneurysm. LYMPH NODES: Unremarkable. No enlarged lymph nodes. IMPRESSION: 1. Hepatomegaly with fatty infiltration. 2. No obstructive uropathy.
[2024-12-18] MEDS ORDERED: BACDST PO (05:18)
[2024-12-18] MEDS: cefTRIAXone 1GM/50ML D5W 50 ML IV ONE (05:36)
== END 2024-12-18 06:01 | disposition home or self-care (01) ==
LOC: ER 03:01
DX: N39.0 Urinary tract infection, site not specified (principal); I10 Essential (primary) hypertension; E78.5 Hyperlipidemia, unspecified; F41.9 Anxiety disorder, unspecified; J45.909 Unspecified asthma, uncomplicated; Z79.899 Other long term (current) drug therapy; Z87.442 Personal history of urinary calculi; Z90.49 Acquired absence of other specified parts of digestive tract; Z91.041 Radiographic dye allergy status; Z98.51 Tubal ligation status; Z88.8 Allergy status to other drugs, medicaments and biological substances
CPT/HCPCS: 36415; 74176; 80053; 81001; 81025; 83690; 85025; 96361; 96365; 96375; 99285; J0696; J2270; J2405; J3490; J7030